=== PATIENT | male | born 1995 | race Caucasian/White ===

== ENCOUNTER 2018-07-17 00:21 | Emergency (ER) | payer BC, OTHER ==
[2018-07-17 00:33] VITALS: RESP 18
[2018-07-17] MEDS ORDERED: LIDOCAINE 1% INJ 10MG/ML (20 ML MDV) SQ STA (02:09)
[2018-07-17] MEDS ORDERED: SULFAMETH-TMP DS STARTER PACK 2 TAB BTL PO STA (02:36)
[2018-07-17] MEDS ORDERED: ACET/COD 300 MG/30 MG STARTER PACK 6 TAB BTL PO STA (02:36)
[2018-07-17] MEDS ORDERED: CEPHALEXIN 500MG STARTER PACK 4 CAP BTL PO STA (02:36)
--- NOTE | 2018-07-17 02:41 | ED ---
Skin/Abscess/FB HPI - General Chief complaint: Skin/Abscess/Foreign Body Stated complaint: Cyst on Tailbone Time Seen by Provider: 07/17/18 01:39 Source: patient, RN notes reviewed, old records reviewed Mode of arrival: ambulatory Limitations: no limitations - History of Present Illness Initial comments: Patient is a 22 year old male with cyst on tailbone for 2 days. Yvest reports he has had a pilionidal abscess before that required drainage and he followed up with surgeon. Patient states that he has no fevers or chills. - Related Data Previous Rx's Medication Instructions Recorded Cyclobenzaprine [Flexeril] 5 mg PO TID #20 tablet 12/30/13 Ibuprofen [Motrin] 600 mg PO Q6HR PRN #40 day 12/30/13 Clindamycin [Cleocin] 300 mg PO Q6H #40 capsule 01/19/14 Hydrocodone/Acetaminophen 1 each PO Q4HR PRN #20 tablet 01/19/14 [Hydrocodone/Acetaminophen 5-325] Ibuprofen [Motrin] 600 mg PO Q8HR PRN #30 tab 01/19/14 Cephalexin [Keflex] 500 mg PO Q6HR #40 cap 07/17/18 Sulfamethox-Tmp 800-160Mg [Bactrim 2 tab PO Q12HR #40 tab 07/17/18 DS 800-160 mg] Allergies Allergy/AdvReac Type Severity Reaction Status Date / Time amoxicillin [Amoxicillin] AdvReac Rash/Hives Verified 07/17/18 00:33 codeine AdvReac Hallucinati Verified 07/17/18 00:33 ons Review of Systems ROS Statement: Those systems with pertinent positive or pertinent negative responses have been documented in the HPI. ROS Other: All systems not noted in ROS Statement are negative. Constitutional: Denies: fever, chills Eyes: Denies: eye pain ENT: Denies: throat pain Respiratory: Denies: cough, dyspnea Cardiovascular: Denies: chest pain Endocrine: Denies: fatigue Gastrointestinal: Reports: vomiting. Denies: abdominal pain, nausea Musculoskeletal: Denies: back pain Skin: Reports: lesions. Denies: rash Neurological: Denies: weakness Psychiatric: Denies: anxiety, depression Hematological/Lymphatic: Denies: easy bleeding Past Medical History Past Medical History: Asthma Additional Past Medical History / Comment(s): C7 fx History of Any Multi-Drug Resistant Organisms: None Reported Past Surgical History: No Surgical Hx Reported Past Psychological History: No Psychological Hx Reported Smoking Status: Current every day smoker Past Alcohol Use History: Rare Past Drug Use History: Marijuana General Exam - General Exam Comments Initial Comments: 22 year old male, no distress. Limitations: no limitations General appearance: alert, in no apparent distress Head exam: Present: atraumatic, normocephalic, normal inspection Eye exam: Present: normal appearance, PERRL, EOMI. Absent: scleral icterus, conjunctival injection, periorbital swelling ENT exam: Present: normal exam, mucous membranes moist Neck exam: Present: normal inspection. Absent: tenderness, meningismus, lymphadenopathy Respiratory exam: Present: normal lung sounds bilaterally. Absent: respiratory distress, wheezes, rales, rhonchi, stridor Cardiovascular Exam: Present: regular rate, normal rhythm, normal heart sounds. Absent: systolic murmur, diastolic murmur, rubs, gallop, clicks GI/Abdominal exam: Present: soft, normal bowel sounds. Absent: distended, tenderness, guarding, rebound, rigid Back exam: Present: normal inspection, other (pilionidal abscess over gluteal cleft with tracking noted. Patient already has drainage from some open pores from tracks) Psychiatric exam: Present: normal affect, normal mood Skin exam: Present: warm, dry, intact, normal color. Absent: rash Course Vital Signs 07/17/18 07/17/18 00:31 02:48 Temperature 98.7 F 97.9 F Pulse Rate 93 80 Respiratory 18 18 Rate Blood Pressure 141/93 133/73 O2 Sat by Pulse 98 97 Oximetry Procedures - Incision & Drainage Site: back (gluteal cleft) Size (cm): 3 Anesthetic Used: lidocaine 1% Amount (mLs): 5 I&D Cleaning Method: Iodine Sterile Field Used?: Yes Scalpel Used: #11 I&D Drainage Obtained: Pus, Blood Packing: Iodoform Culture Obtained?: Yes Patient Tolerated Procedure: well, no complications Medical Decision Making - Medical Decision Making 22 year old male with 2 days of pilionidal abscess. Patient given bactrim and I and D performed. Culture obtained. Given referral for Surgery. Wound was packed and wound care instructions discussed. Discussed strict return parameters. Disposition Clinical Impression: Pilonidal cyst with abscess Disposition: HOME SELF-CARE Condition: Good Instructions: Pilonidal Cyst (ED) Additional Instructions: Patient advised of close follow-up with a surgeon. Remove the packing in 2 days. Return to emergency department if any alarming signs or symptoms occur. Prescriptions: Cephalexin [Keflex] 500 mg PO Q6HR #40 cap Sulfamethox-Tmp 800-160Mg [Bactrim DS 800-160 mg] 2 tab PO Q12HR #40 tab Is patient prescribed a controlled substance at d/c from ED?: No Referrals: None,Stated [Primary Care Provider] - 1-2 days Arin Wililam DO [Doctor of Osteopathic Medicine] - 1-2 days Time of Disposition: 02:38
[2018-07-17 02:49] VITALS: BP 133/73; PULSE 80; TEMP 97.9
== END 2018-07-17 02:54 | disposition home or self-care (01) ==
LOC: EC 00:21
DX: L05.01 Pilonidal cyst with abscess (principal); F17.200 Nicotine dependence, unspecified, uncomplicated; Z88.0 Allergy status to penicillin; Z88.5 Allergy status to narcotic agent
CPT/HCPCS: 87070; 87205; 99283; 10060; J2001

== ENCOUNTER 2018-11-19 00:10 | Emergency (ER) | payer BC ==
[2018-11-19 00:20] VITALS: BP 140/89; PULSE 71; RESP 17; TEMP 98
--- NOTE | 2018-11-19 00:58 | XR ---
EXAM: XR Left Hand Complete, 3 or More Views CLINICAL HISTORY: ITS.REASON XR Reason: Pain from punching door TECHNIQUE: Frontal, lateral and oblique views of the left hand. COMPARISON: No relevant prior studies available. FINDINGS: Acute boxer's fracture involving the neck of the fifth metacarpal with palmar angulation of the distal component. No involvement of the adjacent articular surface. No other acute or healing fracture or malalignment. Soft tissue swelling about the fracture site. No other soft tissue abnormalities. IMPRESSION: Acute boxer's fracture of the fifth metacarpal.
--- NOTE | 2018-11-19 02:27 | ED ---
Upper Extremity HPI - General Chief Complaint: Extremity Injury, Upper Stated Complaint: Lt Hand Injury Time Seen by Provider: 11/19/18 01:34 Source: patient Mode of arrival: ambulatory Limitations: no limitations - History of Present Illness Initial Comments: This patient is 22-year-old man who complains of hand pain that developed tonight acutely when he partially door. The patient states he felt that pop believes that he broke a bone scan. Patient denies numbness. No other injuries. Complaint: Injury to:: right, hand -: hour(s) Other Injuries: none Handedness: right Place: home Improves With: none Worsens With: movement of extremity Context: direct blow Associated Symptoms: heard/felt popping sensat - Related Data Previous Rx's Medication Instructions Recorded Cyclobenzaprine [Flexeril] 5 mg PO TID #20 tablet 12/30/13 Ibuprofen [Motrin] 600 mg PO Q6HR PRN #40 day 12/30/13 Clindamycin [Cleocin] 300 mg PO Q6H #40 capsule 01/19/14 Hydrocodone/Acetaminophen 1 each PO Q4HR PRN #20 tablet 01/19/14 [Hydrocodone/Acetaminophen 5-325] Ibuprofen [Motrin] 600 mg PO Q8HR PRN #30 tab 01/19/14 Cephalexin [Keflex] 500 mg PO Q6HR #40 cap 07/17/18 Sulfamethox-Tmp 800-160Mg [Bactrim 2 tab PO Q12HR #40 tab 07/17/18 DS 800-160 mg] Ibuprofen 800 mg PO TID #20 tablet 11/19/18 Allergies Allergy/AdvReac Type Severity Reaction Status Date / Time amoxicillin [Amoxicillin] AdvReac Rash/Hives Verified 11/19/18 00:20 codeine AdvReac Hallucinati Verified 11/19/18 00:20 ons Review of Systems ROS Statement: Those systems with pertinent positive or pertinent negative responses have been documented in the HPI. ROS Other: All systems not noted in ROS Statement are negative. Constitutional: Denies: fever, chills, weakness Musculoskeletal: Reports: as per HPI, joint swelling, arthralgia Skin: Denies: lesions Neurological: Denies: weakness, numbness, paresthesias Past Medical History Past Medical History: Asthma Additional Past Medical History / Comment(s): C7 fx, History of Any Multi-Drug Resistant Organisms: None Reported Past Surgical History: No Surgical Hx Reported Past Psychological History: No Psychological Hx Reported Smoking Status: Current every day smoker Past Alcohol Use History: Occasional Past Drug Use History: Marijuana General Exam Limitations: no limitations General appearance: alert, in no apparent distress Head exam: Present: atraumatic, normocephalic Right Elbow exam: Present: normal inspection, full ROM. Absent: tenderness, swelling, abrasion Forearm Wrist exam: Present: normal inspection, full ROM. Absent: tenderness, swelling, abrasion Hand Wrist exam: Present: tenderness, swelling, deformity, other (Patient has swelling and tenderness over the fifth metacarpal and there appears to be deformity there. No open fracture. Motor and sensory function intact to the hand) Vascular: Present: vascular compromise, normal capillary refill Course Vital Signs 11/19/18 00:17 Temperature 98.0 F Pulse Rate 71 Respiratory 17 Rate Blood Pressure 140/89 O2 Sat by Pulse 98 Oximetry Procedures - Orthopedic Splinting/Casting Injury #1 Side: right Upper Extremity Injury Location: hand Upper Extremity Immobilizer: ulnar gutter Medical Decision Making - Medical Decision Making Patient has fracture the fifth metacarpal consistent with boxer's fracture. Discussed appropriate further care and follow-up. Patient is splinted area discussed splint care and return parameters. Disposition Clinical Impression: Boxer's metacarpal fracture, neck, closed Disposition: HOME SELF-CARE Condition: Good Instructions (If sedation given, give patient instructions): Hand Fracture (ED) Prescriptions: Ibuprofen 800 mg PO TID #20 tablet Is patient prescribed a controlled substance at d/c from ED?: No Referrals: None,Stated [Primary Care Provider] - 1-2 days Bret Quintana DO [Medical Doctor] - 1-2 days
[2018-11-19] MEDS ORDERED: IBUPROFEN 600 MG TAB PO STA (02:41)
[2018-11-19] MEDS ORDERED: HYDROcodone/APAP 5-325MG 1 EACH TAB PO STA (02:41)
== END 2018-11-19 03:00 | disposition home or self-care (01) ==
LOC: EC 00:10
DX: S62.337A Displaced fracture of neck of fifth metacarpal bone, left hand, initial encounter for closed fracture (principal); F17.200 Nicotine dependence, unspecified, uncomplicated; Z87.81 Personal history of (healed) traumatic fracture; Z88.0 Allergy status to penicillin; Z88.5 Allergy status to narcotic agent; W22.8XXA Striking against or struck by other objects, initial encounter
CPT/HCPCS: 29125; 99283

== ENCOUNTER 2018-12-06 19:31 | Emergency (ER) | payer BC ==
[2018-12-06] MEDS ORDERED: PROPARACAINE 0.5% OPHTH DROPS 15 ML BTL LEFT EYE STA (20:27)
--- NOTE | 2018-12-06 21:02 | ED ---
Eye Problem HPI - General Chief complaint: Eye Problems Stated complaint: FB left eye Time Seen by Provider: 12/06/18 19:38 Source: patient Mode of arrival: ambulatory Limitations: no limitations - History of Present Illness Initial comments: Patient is a 22-year-old male presenting to emergency Department with a foreign body to left eye. Patient reports that he was shaving metal when a metal debris went into his eye. Patient states that he attempted to remove it but was unable to. Patient reports mild irritation but otherwise causes him a lot of tearing. Patient denies taking any medication to alleviate the pain. Patient denies any periorbital swelling, nausea, vomiting, headaches, blurry vision. Patient does not wear contact lenses. Patient reports histetanus status is unknown. - Related Data Previous Rx's Medication Instructions Recorded Cyclobenzaprine [Flexeril] 5 mg PO TID #20 tablet 12/30/13 Ibuprofen [Motrin] 600 mg PO Q6HR PRN #40 day 12/30/13 Clindamycin [Cleocin] 300 mg PO Q6H #40 capsule 01/19/14 Hydrocodone/Acetaminophen 1 each PO Q4HR PRN #20 tablet 01/19/14 [Hydrocodone/Acetaminophen 5-325] Ibuprofen [Motrin] 600 mg PO Q8HR PRN #30 tab 01/19/14 Cephalexin [Keflex] 500 mg PO Q6HR #40 cap 07/17/18 Sulfamethox-Tmp 800-160Mg [Bactrim 2 tab PO Q12HR #40 tab 07/17/18 DS 800-160 mg] Ibuprofen 800 mg PO TID #20 tablet 11/19/18 Tobramycin 0.3% Ophth Soln [Tobrex 1 drop BOTH EYES Q4H 7 Days #1 12/06/18 0.3% Ophth Soln] bottle Allergies Allergy/AdvReac Type Severity Reaction Status Date / Time amoxicillin [Amoxicillin] AdvReac Rash/Hives Verified 12/06/18 19:37 codeine AdvReac Hallucinati Verified 12/06/18 19:37 ons Review of Systems ROS Statement: Those systems with pertinent positive or pertinent negative responses have been documented in the HPI. ROS Other: All systems not noted in ROS Statement are negative. Past Medical History Past Medical History: Asthma Additional Past Medical History / Comment(s): C7 fx, History of Any Multi-Drug Resistant Organisms: None Reported Past Surgical History: No Surgical Hx Reported Past Psychological History: No Psychological Hx Reported Smoking Status: Current every day smoker Past Alcohol Use History: Occasional Past Drug Use History: Marijuana General Exam Limitations: no limitations General appearance: alert, in no apparent distress Head exam: Present: atraumatic, normocephalic, normal inspection Eye exam: Present: normal appearance, other (Foreign body, left iris) Neck exam: Present: normal inspection Course Vital Signs 12/06/18 19:35 Temperature 98.2 F Pulse Rate 74 Respiratory 18 Rate Blood Pressure 152/93 O2 Sat by Pulse 98 Oximetry Medical Decision Making - Medical Decision Making Patient is a 22-year-old male presenting to emergency Department with a foreign body to left eye. I used procainamide as a local anesthetic and removed the eye with a cotton swab. Patient will be given tetanus prophylaxis. Patient will be discharged with tobramycin eyedrops. Patient advised to follow-up with primary care. Patient advised to return to emergency Department symptoms worsen. Case discussed with physician. Disposition Clinical Impression: Foreign body Disposition: HOME SELF-CARE Instructions (If sedation given, give patient instructions): Eye Foreign Body (ED) Additional Instructions: Please use prescribed medication as directed. Please follow up with an ophtha lmologist. Please return to emergency department if symptoms worsen. Prescriptions: Tobramycin 0.3% Ophth Soln [Tobrex 0.3% Ophth Soln] 1 drop BOTH EYES Q4H 7 Days #1 bottle Is patient prescribed a controlled substance at d/c from ED?: No Referrals: None,Stated [Primary Care Provider] - 1-2 days Time of Disposition: 21:07
[2018-12-06] MEDS ORDERED: DIPH,PERTUS(ACELL)TETVAC-LF 0.5 ML VIAL IM ONE (21:06)
[2018-12-06 21:44] VITALS: BP 140/78; PULSE 72; RESP 21; TEMP 98.6
== END 2018-12-06 21:31 | disposition home or self-care (01) ==
LOC: EC 19:31
DX: T15.82XA Foreign body in other and multiple parts of external eye, left eye, initial encounter (principal); F17.200 Nicotine dependence, unspecified, uncomplicated; Z88.0 Allergy status to penicillin; Z88.5 Allergy status to narcotic agent; Z23 Encounter for immunization; Y93.89 Activity, other specified
CPT/HCPCS: 90471; 90715; 99283

== ENCOUNTER 2019-07-06 17:04 | Emergency (ER) | payer BC ==
[2019-07-06 17:09] VITALS: BP 149/87; PULSE 91; RESP 18; TEMP 98
--- NOTE | 2019-07-06 17:29 | ED ---
General Adult HPI - General Chief complaint: Extremity Problem,Nontraumatic Stated complaint: left hand numbnes Time Seen by Provider: 07/06/19 17:12 Source: patient, RN notes reviewed Mode of arrival: ambulatory Limitations: no limitations - History of Present Illness Initial comments: 23-year-old male presents to the emergency department for a chief complaint of numbness and tingling in the first second and third digits of the right hand. Patient states that he has a tingling sensation that has been persistent for about a week. States he had pain in his wrist about a week ago but that has subsided. However since then he has had tingling in his thumb and second and third digits. Denies any weakness of this hand. 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 Denies any alleviating or aggravating symptoms. Has not tried any anti-inflammatories at this point. Denies any recent injury to the wrist or hand. Patient has no other complaints at this time including shortness of breath, chest pain, abdominal pain, nausea or vomiting, headache, or visual changes. - Related Data Previous Rx's Medication Instructions Recorded Cyclobenzaprine [Flexeril] 5 mg PO TID #20 tablet 12/30/13 Ibuprofen [Motrin] 600 mg PO Q6HR PRN #40 day 12/30/13 Clindamycin [Cleocin] 300 mg PO Q6H #40 capsule 01/19/14 Hydrocodone/Acetaminophen 1 each PO Q4HR PRN #20 tablet 01/19/14 [Hydrocodone/Acetaminophen 5-325] Ibuprofen [Motrin] 600 mg PO Q8HR PRN #30 tab 01/19/14 Cephalexin [Keflex] 500 mg PO Q6HR #40 cap 07/17/18 Sulfamethox-Tmp 800-160Mg [Bactrim 2 tab PO Q12HR #40 tab 07/17/18 DS 800-160 mg] Ibuprofen 800 mg PO TID #20 tablet 11/19/18 Tobramycin 0.3% Ophth Soln [Tobrex 1 drop BOTH EYES Q4H 7 Days #1 12/06/18 0.3% Ophth Soln] bottle Allergies Allergy/AdvReac Type Severity Reaction Status Date / Time amoxicillin [Amoxicillin] AdvReac Rash/Hives Verified 07/06/19 17:09 codeine AdvReac Hallucinati Verified 07/06/19 17:09 ons Review of Systems ROS Statement: Those systems with pertinent positive or pertinent negative responses have been documented in the HPI. ROS Other: All systems not noted in ROS Statement are negative. Past Medical History Past Medical History: Asthma Additional Past Medical History / Comment(s): C7 fx in 2013 History of Any Multi-Drug Resistant Organisms: None Reported Past Surgical History: No Surgical Hx Reported Past Psychological History: No Psychological Hx Reported Smoking Status: Current every day smoker Past Alcohol Use History: None Reported Past Drug Use History: Marijuana General Exam Limitations: no limitations General appearance: alert, in no apparent distress Head exam: Present: atraumatic, normocephalic, normal inspection Eye exam: Present: normal appearance, PERRL, EOMI. Absent: scleral icterus, conjunctival injection, periorbital swelling ENT exam: Present: normal exam, mucous membranes moist Neck exam: Present: normal inspection. Absent: tenderness, meningismus, lymphadenopathy Respiratory exam: Present: normal lung sounds bilaterally. Absent: respiratory distress, wheezes, rales, rhonchi, stridor Cardiovascular Exam: Present: regular rate, normal rhythm, normal heart sounds. Absent: systolic murmur, diastolic murmur, rubs, gallop, clicks Extremities exam: Present: normal inspection, full ROM (Of the right wrist and all digits of the right hand.), normal capillary refill (Radial pulse 2+ in the right upper extremity. Capillary refill less than 2 seconds in all digits of the right upper extremity.), other (The patient is intact throughout the right hand including all digits. Patient has full strength of the median nerve when making okay sign). Absent: tenderness, pedal edema, joint swelling, calf tende rness Course Vital Signs 07/06/19 17:05 Temperature 98 F Pulse Rate 91 Respiratory 18 Rate Blood Pressure 149/87 O2 Sat by Pulse 100 Oximetry Medical Decision Making - Medical Decision Making Pt is experiencing paresthesia in the median nerve distribution. However sensation is intact and strength is 5 out of 5 of the median nerve. 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 he'll be treated for carpal tunnel syndrome with anti-inflammatories and cock-up splint. Appropriate follow up given as well as return parameters discussed. Disposition Clinical Impression: Paresthesias in left hand Disposition: HOME SELF-CARE Condition: Good Instructions (If sedation given, give patient instructions): Paresthesia (ED) Additional Instructions: Take Motrin and Tylenol for anti-inflammatory properties. Make sure to eat while taking this to prevent stomach discomfort. Please use cockup splint as directed. Return to the emergency department if you have any worsening symptoms. Is patient prescribed a controlled substance at d/c from ED?: No Referrals: Fei Berger MD [STAFF PHYSICIAN] - 1-2 days Time of Disposition: 17:28
== END 2019-07-06 17:42 | disposition home or self-care (01) ==
LOC: EC 17:04
DX: R20.2 Paresthesia of skin (principal); F17.200 Nicotine dependence, unspecified, uncomplicated; Z88.0 Allergy status to penicillin; Z88.5 Allergy status to narcotic agent
CPT/HCPCS: 99283

== ENCOUNTER 2020-03-03 00:08 | Emergency (ER) | payer BC ==
[2020-03-03 01:21] LABS: Amphetamine Screen,Urine Detected (NotDetected); Barbiturate Screen,Urine Not Detected (NotDetected); Benzodiazepines Screen,Urine Not Detected (NotDetected); Cocaine Screen,Urine Not Detected (NotDetected); Methadone Screen, Urine Not Detected (NotDetected); Opiate Screen,Urine Not Detected (NotDetected); Oxycodone Screen, Urine Not Detected (NotDetected); Phencyclidine Screen,Urine Not Detected (NotDetected); Tricyclic Antidepressant,Urine Not Detected (NotDetected); Urn Cannabinoid Scrn Not Detected (NotDetected)
[2020-03-03 03:34] LABS: Basophils # (A) 0.1 k/uL (0-0.2); Basophils % (A) 1 %; Eosinophils # (A) 0.3 k/uL (0-0.7); Eosinophils % (A) 4 %; HCT 42.4 % (39.0-53.0); HGB 14.2 gm/dL (13.0-17.5); Lymphocytes # (A) 2.9 k/uL (1.0-4.8); Lymphocytes % (A) 36 %; MCH 29.3 pg (25.0-35.0); MCHC 33.6 g/dL (31.0-37.0); MCV 87.2 fL (80.0-100.0); Mean Platelet Volume 7.3; Monocytes # (A) 0.3 k/uL (0-1.0); Monocytes % (A) 4 %; Neutrophils # (A) 4.2 k/uL (1.3-7.7); Neutrophils % (A) 53 %; Platelet Count 180 k/uL (150-450); RBC 4.86 m/uL (4.30-5.90); RDW 12.6 % (11.5-15.5)
[2020-03-03 03:52] LABS: African American GFR (CKD) >90 (>60 ml/min/1.73 sqM); Anion Gap 7 mmol/L; Blood Urea Nitrogen 13 mg/dL (9-20); Calcium 9.7 mg/dL (8.4-10.2); Carbon Dioxide 25 mmol/L (22-30); Chloride 107 mmol/L (98-107); Glucose 100 mg/dL (74-99); Non-African American GFR(CKD) >90 (>60 ml/min/1.73 sqM); Potassium 3.9 mmol/L (3.5-5.1); Sodium 139 mmol/L (137-145)
--- NOTE | 2020-03-03 04:14 | ED ---
Psych HPI - General Chief Complaint: Psychiatric Symptoms Stated Complaint: mental health Time Seen by Provider: 03/03/20 00:13 Source: patient Mode of arrival: ambulatory - History of Present Illness MD Complaint: suicidal ideation, feels depressed -: days(s) Associated Psychiatric Symptoms: suicidal ideation History of same: Yes Quality: getting worse Improves With: none Worsens With: drug use Context: significant life stressor Associated Symptoms: denies other symptoms - Related Data Previous Rx's Medication Instructions Recorded Cyclobenzaprine [Flexeril] 5 mg PO TID #20 tablet 12/30/13 Ibuprofen [Motrin] 600 mg PO Q6HR PRN #40 day 12/30/13 Clindamycin [Cleocin] 300 mg PO Q6H #40 capsule 01/19/14 Hydrocodone/Acetaminophen 1 each PO Q4HR PRN #20 tablet 01/19/14 [Hydrocodone/Acetaminophen 5-325] Ibuprofen [Motrin] 600 mg PO Q8HR PRN #30 tab 01/19/14 Cephalexin [Keflex] 500 mg PO Q6HR #40 cap 07/17/18 Sulfamethox-Tmp 800-160Mg [Bactrim 2 tab PO Q12HR #40 tab 07/17/18 DS 800-160 mg] Ibuprofen 800 mg PO TID #20 tablet 11/19/18 Tobramycin 0.3% Ophth Soln [Tobrex 1 drop BOTH EYES Q4H 7 Days #1 12/06/18 0.3% Ophth Soln] bottle Allergies Allergy/AdvReac Type Severity Reaction Status Date / Time amoxicillin [Amoxicillin] AdvReac Rash/Hives Verified 03/03/20 00:14 codeine AdvReac Hallucinati Verified 03/03/20 00:14 ons Review of Systems ROS Statement: Those systems with pertinent positive or pertinent negative responses have been documented in the HPI. ROS Other: All systems not noted in ROS Statement are negative. Constitutional: Denies: fever, chills Respiratory: Denies: cough, dyspnea Cardiovascular: Denies: chest pain, palpitations Gastrointestinal: Denies: abdominal pain, vomiting, diarrhea Genitourinary: Denies: dysuria, hematuria Musculoskeletal: Denies: back pain Neurological: Denies: headache, weakness, numbness Psychiatric: Reports: depression, suicidal thoughts. Denies: auditory hallucinations, visual hallucinations, homicidal thoughts Past Medical History Past Medical History: Asthma Additional Past Medical History / Comment(s): C7 fx in 2014 History of Any Multi-Drug Resistant Organisms: None Reported Past Surgical History: No Surgical Hx Reported Past Psychological History: No Psychological Hx Reported Smoking Status: Current every day smoker Past Alcohol Use History: None Reported Past Drug Use History: Marijuana, Methamphetamine General Exam Limitations: no limitations General appearance: alert, in no apparent distress Head exam: Present: atraumatic, normocephalic Eye exam: Present: normal appearance. Absent: scleral icterus, conjunctival injection ENT exam: Present: normal oropharynx Respiratory exam: Present: normal lung sounds bilaterally. Absent: respiratory distress, wheezes, rales, rhonchi, stridor Cardiovascular Exam: Present: regular rate, normal rhythm, normal heart sounds. Absent: systolic murmur, diastolic murmur, rubs, gallop GI/Abdominal exam: Present: soft. Absent: distended, tenderness, guarding, rebound, rigid, mass Extremities exam: Present: normal inspection, normal capillary refill Back exam: Present: normal inspection Neurological exam: Present: alert Psychiatric exam: Present: depressed, suicidal ideation. Absent: agitated, anxious, flat affect, manic, homicidal ideation Skin exam: Present: warm, dry, intact, normal color. Absent: rash Course Vital Signs 03/03/20 03/03/20 00:12 06:56 Temperature 98.1 F 98.0 F Pulse Rate 100 72 Respiratory 18 17 Rate Blood Pressure 132/86 136/83 O2 Sat by Pulse 100 100 Oximetry Medical Decision Making - Lab Data Result diagrams: 03/03/20 03:09 03/03/20 03:09 Lab Results 03/03/20 03/03/20 03/03/20 Range/Units 00:46 03:09 03:09 WBC 8.0 (3.8-10.6) k/uL RBC 4.86 (4.30-5.90) m/uL Hgb 14.2 (13.0-17.5) gm/dL Hct 42.4 (39.0-53.0) % MCV 87.2 (80.0-100.0) fL MCH 29.3 (25.0-35.0) pg MCHC 33.6 (31.0-37.0) g/dL RDW 12.6 (11.5-15.5) % Plt Count 180 (150-450) k/uL Neutrophils % 53 % Lymphocytes % 36 % Monocytes % 4 % Eosinophils % 4 % Basophils % 1 % Neutrophils # 4.2 (1.3-7.7) k/uL Lymphocytes # 2.9 (1.0-4.8) k/uL Monocytes # 0.3 (0-1.0) k/uL Eosinophils # 0.3 (0-0.7) k/uL Basophils # 0.1 (0-0.2) k/uL Sodium 139 (137-145) mmol/L Potassium 3.9 (3.5-5.1) mmol/L Chloride 107 (98-107) mmol/L Carbon Dioxide 25 (22-30) mmol/L Anion Gap 7 mmol/L BUN 13 (9-20) mg/dL Creatinine 0.77 (0.66-1.25) mg/dL Est GFR (CKD-EPI)AfAm >90 (>60 ml/min/1.73 sqM) Est GFR (CKD-EPI)NonAf >90 (>60 ml/min/1.73 sqM) Glucose 100 H (74-99) mg/dL Calcium 9.7 (8.4-10.2) mg/dL Urine Opiates Screen Not Detected (NotDetected) Ur Oxycodone Screen Not Detected (NotDetected) Urine Methadone Screen Not Detected (NotDetected) Ur Propoxyphene Screen Not Detected (NotDetected) Ur Barbiturates Screen Not Detected (NotDetected) U Tricyclic Antidepress Not Detected (NotDetected) Ur Phencyclidine Scrn Not Detected (NotDetected) Ur Amphetamines Screen Detected H (NotDetected) U Methamphetamines Scrn Not Detected (NotDetected) U Benzodiazepines Scrn Not Detected (NotDetected) Urine Cocaine Screen Not Detected (NotDetected) U Marijuana (THC) Screen Not Detected (NotDetected) Disposition Clinical Impression: Suicidal ideation, Mood disorder Disposition: TRANSFER TO PSYCH HOSP/UNIT Condition: Fair Is patient prescribed a controlled substance at d/c from ED?: No Referrals: None,Stated [Primary Care Provider] - 1-2 days
[2020-03-03 08:10] VITALS: BP 136/83; PULSE 72; RESP 17; TEMP 98
== END 2020-03-03 07:35 ==
LOC: EC 00:08
DX: R45.851 Suicidal ideations (principal); F39 Unspecified mood [affective] disorder; F17.200 Nicotine dependence, unspecified, uncomplicated; Z88.0 Allergy status to penicillin; Z88.5 Allergy status to narcotic agent
CPT/HCPCS: 36415; 80048; 80306; 82075; 85025; 99285

== ENCOUNTER 2020-06-26 05:32 | Emergency (ER) | payer BC ==
[2020-06-26 05:45] VITALS: BP 136/89; PULSE 100; RESP 18; TEMP 98
[2020-06-26] MEDS ORDERED: PROPARACAINE 0.5% OPHTH DROPS 15 ML BTL RIGHT EYE STA (05:53)
[2020-06-26] MEDS ORDERED: TOBRAMYCIN 0.3% OPHTH DROPS 5 ML BTL BOTH EYES STA (06:31)
[2020-06-26] MEDS ORDERED: FLUORESCEIN STRIPS 1 MG STRIP BOTH EYES ONE (06:32)
--- NOTE | 2020-06-26 06:33 | ED ---
Eye Problem HPI - General Chief complaint: Eye Problems Stated complaint: FB in eye Time Seen by Provider: 06/26/20 06:02 Source: patient, RN notes reviewed Mode of arrival: ambulatory Limitations: no limitations - History of Present Illness Initial comments: 24-year-old male presents emergency Department with chief complaint of a foreign body to his right and left eye. Patient states that he was clearing away some metal shavings yesterday states that blew into his eyes. Patient states his tetanus is up-to-date last 5 years. Patient states that he can see something in his right eye but feels like symptoms in his left eye Patient offers no other complaints. - Related Data Previous Rx's Medication Instructions Recorded Cyclobenzaprine [Flexeril] 5 mg PO TID #20 tablet 12/30/13 Ibuprofen [Motrin] 600 mg PO Q6HR PRN #40 day 12/30/13 Clindamycin [Cleocin] 300 mg PO Q6H #40 capsule 01/19/14 Hydrocodone/Acetaminophen 1 each PO Q4HR PRN #20 tablet 01/19/14 [Hydrocodone/Acetaminophen 5-325] Ibuprofen [Motrin] 600 mg PO Q8HR PRN #30 tab 01/19/14 Cephalexin [Keflex] 500 mg PO Q6HR #40 cap 07/17/18 Sulfamethox-Tmp 800-160Mg [Bactrim 2 tab PO Q12HR #40 tab 07/17/18 DS 800-160 mg] Ibuprofen 800 mg PO TID #20 tablet 11/19/18 Tobramycin 0.3% Ophth Soln [Tobrex 1 drop BOTH EYES Q4H 7 Days #1 12/06/18 0.3% Ophth Soln] bottle Allergies Allergy/AdvReac Type Severity Reaction Status Date / Time amoxicillin [Amoxicillin] AdvReac Rash/Hives Verified 06/26/20 05:45 codeine AdvReac Hallucinati Verified 06/26/20 05:45 ons Review of Systems ROS Statement: Those systems with pertinent positive or pertinent negative responses have been documented in the HPI. ROS Other: All systems not noted in ROS Statement are negative. Past Medical History Past Medical History: Asthma Additional Past Medical History / Comment(s): C7 fx in 2014 History of Any Multi-Drug Resistant Organisms: None Reported Past Surgical History: No Surgical Hx Reported Past Psychological History: No Psychological Hx Reported Smoking Status: Current every day smoker Past Alcohol Use History: None Reported Past Drug Use History: Marijuana, Methamphetamine General Exam Limitations: no limitations General appearance: alert, in no apparent distress Head exam: Present: atraumatic, normocephalic, normal inspection Eye exam: Present: PERRL, EOMI, other (Wood's lamp was used along with fluorescein and proparacaine patient completely relief of symptoms for her cane .). Absent: normal appearance (Foreign body noted in the right central cornea region with rest sprain, left eye foreign body in 11 o'clock position), scleral icterus, conjunctival injection, periorbital swelling ENT exam: Present: normal exam, normal oropharynx, mucous membranes moist Neck exam: Present: normal inspection. Absent: tenderness, meningismus, lymphadenopathy Respiratory exam: Present: normal lung sounds bilaterally. Absent: respiratory distress, wheezes, rales, rhonchi, stridor Cardiovascular Exam: Present: regular rate, normal rhythm, normal heart sounds. Absent: systolic murmur, diastolic murmur, rubs, gallop, clicks Course Vital Signs 06/26/20 05:39 Temperature 98 F Pulse Rate 100 Respiratory 18 Rate Blood Pressure 136/89 O2 Sat by Pulse 98 Oximetry Procedures - Forgein Body Removal Eye Site: Left, Right Anesthetic Used: Proparacaine Eye Exam Technique: Mccoy Lamp, Fluorescein Foreign Body Suspected: Metal Forgein Body Removal Technique: Cotton Swab, Algerbrush Remaining Debris: No Patient Tolerated: no complications Medical Decision Making - Medical Decision Making Patient had bilateral foreign bodies with rust ring. This was removed with medications. Patient was instructed that he needs to follow-up for recheck and to return for any worsening or changing symptoms. Patient agrees patient discharged on Tobrex eyedrops. Tetanus up-to-date. Disposition Clinical Impression: Foreign body of cornea Disposition: HOME SELF-CARE Condition: Stable Instructions (If sedation given, give patient instructions): Eye Foreign Body (ED) Additional Instructions: Use Tobrex eyedrops 1 drop to each eye every 4 hours for 5 days. Patient's follow-up with ophthalmology if no improvement. Please return to the Emergency Department if symptoms worsen or any other concerns. Is patient prescribed a controlled substance at d/c from ED?: No Referrals: None,Stated [Primary Care Provider] - 1-2 days Chris Rogers MD [STAFF PHYSICIAN] - 1-2 days Time of Disposition: 06:33
== END 2020-06-26 07:19 | disposition home or self-care (01) ==
LOC: EC 05:32
DX: T15.02XA Foreign body in cornea, left eye, initial encounter (principal); T15.01XA Foreign body in cornea, right eye, initial encounter; F17.200 Nicotine dependence, unspecified, uncomplicated; Z88.0 Allergy status to penicillin; Z88.5 Allergy status to narcotic agent; W45.8XXA Other foreign body or object entering through skin, initial encounter
CPT/HCPCS: 65220; 99283

== ENCOUNTER 2020-07-13 17:34 | Emergency (ER) | payer BC ==
[2020-07-13 17:38] VITALS: BP 117/80; PULSE 111; RESP 18; TEMP 97.8
[2020-07-13] MEDS ORDERED: PROPARACAINE 0.5% OPHTH DROPS 15 ML BTL LEFT EYE STA (17:39)
[2020-07-13] MEDS ORDERED: FLUORESCEIN STRIPS 1 MG STRIP LEFT EYE ONE (17:39)
[2020-07-13] MEDS ORDERED: TOBRAMYCIN 0.3% OPHTH DROPS 5 ML BTL LEFT EYE STA (18:00)
--- NOTE | 2020-07-13 18:02 | ED ---
Eye Problem HPI - General Chief complaint: Eye Problems Stated complaint: eye problem Time Seen by Provider: 07/13/20 17:39 Source: patient, RN notes reviewed Mode of arrival: ambulatory Limitations: no limitations - History of Present Illness Initial comments: 24-year-old male presents emergency Department with chief complaint of foreign body left eye. 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 Patient states he started having some irritation today. Tetanus up-to-date. Patient has no blurred vision states is just irritated. Patient offers no other complaints. - Related Data Previous Rx's Medication Instructions Recorded Cyclobenzaprine [Flexeril] 5 mg PO TID #20 tablet 12/30/13 Ibuprofen [Motrin] 600 mg PO Q6HR PRN #40 day 12/30/13 Clindamycin [Cleocin] 300 mg PO Q6H #40 capsule 01/19/14 Hydrocodone/Acetaminophen 1 each PO Q4HR PRN #20 tablet 01/19/14 [Hydrocodone/Acetaminophen 5-325] Ibuprofen [Motrin] 600 mg PO Q8HR PRN #30 tab 01/19/14 Cephalexin [Keflex] 500 mg PO Q6HR #40 cap 07/17/18 Sulfamethox-Tmp 800-160Mg [Bactrim 2 tab PO Q12HR #40 tab 07/17/18 DS 800-160 mg] Ibuprofen 800 mg PO TID #20 tablet 11/19/18 Tobramycin 0.3% Ophth Soln [Tobrex 1 drop BOTH EYES Q4H 7 Days #1 12/06/18 0.3% Ophth Soln] bottle Allergies Allergy/AdvReac Type Severity Reaction Status Date / Time amoxicillin [Amoxicillin] AdvReac Rash/Hives Verified 07/13/20 17:38 codeine AdvReac Hallucinati Verified 07/13/20 17:38 ons Review of Systems ROS Statement: Those systems with pertinent positive or pertinent negative responses have been documented in the HPI. ROS Other: All systems not noted in ROS Statement are negative. Past Medical History Past Medical History: Asthma Additional Past Medical History / Comment(s): C7 fx in 2013 History of Any Multi-Drug Resistant Organisms: None Reported Past Surgical History: No Surgical Hx Reported Past Psychological History: No Psychological Hx Reported Smoking Status: Current every day smoker Past Alcohol Use History: None Reported Past Drug Use History: Marijuana, Methamphetamine General Exam Limitations: no limitations General appearance: alert, in no apparent distress Head exam: Present: atraumatic, normocephalic, normal inspection Eye exam: Present: PERRL, EOMI, conjunctival injection. Absent: normal appearance (Foreign body noted left I in the 11 o'clock position), scleral icterus, periorbital swelling ENT exam: Present: normal exam, mucous membranes moist Neck exam: Present: normal inspection. Absent: tenderness, meningismus, lymphadenopathy Respiratory exam: Present: normal lung sounds bilaterally. Absent: respiratory distress, wheezes, rales, rhonchi, stridor Cardiovascular Exam: Present: regular rate, normal rhythm, normal heart sounds. Absent: systolic murmur, diastolic murmur, rubs, gallop, clicks Course Vital Signs 07/13/20 17:36 Temperature 97.8 F Pulse Rate 111 H Respiratory 18 Rate Blood Pressure 117/80 O2 Sat by Pulse 99 Oximetry Procedures - Forgein Body Removal Eye Site: Left Anesthetic Used: Proparacaine Eye Exam Technique: Mccoy Lamp, Fluorescein Foreign Body Suspected: Metal Forgein Body Removal Technique: Cotton Swab, Algerbrush Remaining Debris: No Patient Tolerated: no complications Medical Decision Making - Medical Decision Making Foreign body was removed medications. Patient was discharged on Tobrex eyedrops patient tetanus is up-to-date patient will follow with ophthalmology for recheck and return for any worsening symptoms. Disposition Clinical Impression: Foreign body of cornea Disposition: HOME SELF-CARE Condition: Stable Instructions (If sedation given, give patient instructions): Eye Foreign Body (ED) Additional Instructions: Please return to the Emergency Department if symptoms worsen or any other concerns. Use Tobrex eyedrops 1 drop every 4 hours for 5 days. Is patient prescribed a controlled substance at d/c from ED?: No Referrals: None,Stated [Primary Care Provider] - 1-2 days Dede Perez MD [STAFF PHYSICIAN] - 1-2 days Time of Disposition: 18:02
== END 2020-07-13 18:13 | disposition home or self-care (01) ==
LOC: EC 17:34
DX: T15.02XA Foreign body in cornea, left eye, initial encounter (principal); F17.200 Nicotine dependence, unspecified, uncomplicated; Z88.0 Allergy status to penicillin; Z88.5 Allergy status to narcotic agent; X58.XXXA Exposure to other specified factors, initial encounter
CPT/HCPCS: 65220; 99283

== ENCOUNTER 2020-10-26 00:45 | Inpatient (IN) | payer BC ==
--- NOTE | 2020-10-26 01:18 | ED ---
Psych HPI - General Chief Complaint: Psychiatric Symptoms Stated Complaint: Mental health Time Seen by Provider: 10/26/20 00:54 Source: patient, family, RN notes reviewed, old records reviewed Mode of arrival: ambulatory Limitations: no limitations - History of Present Illness Initial Comments: This is a 24-year-old male to the ER for evaluation. Patient with us for evaluation of possible mental a shunt does have history of drug abuse recent drug abuse and has active thoughts of suicidal ideation currently MD Complaint: feels depressed, altered mental status, other (drug abuse) -: days(s) Associated Psychiatric Symptoms: homicidal ideation, racing thoughts, auditory hallucinations, visual hallucinations History of same: Yes Quality: constant Improves With: none Worsens With: none Context: recent drug abuse, not taking psychiatric medications Associated Symptoms: denies other symptoms Treatments Prior to Arrival: placed on mental health hold - Related Data Previous Rx's Medication Instructions Recorded FLUoxetine HCL [PROzac] 30 mg PO DAILY 30 Days cap 10/29/20 Nicotine 14Mg/24Hr Patch [Habitrol] 1 patch TRANSDERM DAILY 30 Days 10/29/20 patch risperiDONE [RisperDAL] 2 mg PO HS 30 Days tab 10/29/20 Allergies Allergy/AdvReac Type Severity Reaction Status Date / Time codeine Allergy Hallucinati Verified 10/26/20 06:59 ons amoxicillin [Amoxicillin] AdvReac Rash/Hives Verified 10/26/20 06:59 Review of Systems ROS Statement: Those systems with pertinent positive or pertinent negative responses have been documented in the HPI. ROS Other: All systems not noted in ROS Statement are negative. Past Medical History Past Medical History: Asthma Additional Past Medical History / Comment(s): C7 fx in 2014 History of Any Multi-Drug Resistant Organisms: None Reported Past Surgical History: No Surgical Hx Reported Past Psychological History: No Psychological Hx Reported Smoking Status: Current every day smoker Past Alcohol Use History: None Reported Past Drug Use History: Marijuana, Methamphetamine General Exam Limitations: no limitations General appearance: alert, in no apparent distress Head exam: Present: atraumatic, normocephalic, normal inspection Eye exam: Present: normal appearance, PERRL, EOMI. Absent: scleral icterus, conjunctival injection, periorbital swelling ENT exam: Present: normal exam, mucous membranes moist Neck exam: Present: normal inspection. Absent: tenderness, meningismus, lymphadenopathy Respiratory exam: Present: normal lung sounds bilaterally. Absent: respiratory distress, wheezes, rales, rhonchi, stridor Cardiovascular Exam: Present: regular rate, normal rhythm, normal heart sounds. Absent: systolic murmur, diastolic murmur, rubs, gallop, clicks GI/Abdominal exam: Present: soft, normal bowel sounds. Absent: distended, tenderness, guarding, rebound, rigid Extremities exam: Present: normal inspection, full ROM, normal capillary refill. Absent: tenderness, pedal edema, joint swelling, calf tenderness Back exam: Present: normal inspection Neurological exam: Present: alert, oriented X3, CN II-XII intact Psychiatric exam: Present: normal affect, normal mood Skin exam: Present: warm, dry, intact, normal color. Absent: rash Course Vital Signs 10/26/20 00:50 Temperature 97.8 F Pulse Rate 64 Respiratory 18 Rate Blood Pressure 131/84 O2 Sat by Pulse 98 Oximetry - Reevaluation(s) Reevaluation #1: 10/26/20 07:12 medical record is reviewed Reevaluation #2: 10/26/20 07:13 medically clear for psychiatry Medical Decision Making - Medical Decision Making 24 male admitted for psychiatric evaluation and treatment - Lab Data Result diagrams: 10/26/20 08:53 10/26/20 08:53 Lab Results 10/26/20 10/26/20 Range/Units 02:20 04:05 Urine Opiates Screen Not Detected (NotDetected) Ur Oxycodone Screen Not Detected (NotDetected) Urine Methadone Screen Not Detected (NotDetected) Ur Propoxyphene Screen Not Detected (NotDetected) Ur Barbiturates Screen Not Detected (NotDetected) U Tricyclic Antidepress Not Detected (NotDetected) Ur Phencyclidine Scrn Not Detected (NotDetected) Ur Amphetamines Screen Detected H (NotDetected) U Methamphetamines Scrn Detected H (NotDetected) U Benzodiazepines Scrn Detected H (NotDetected) Urine Cocaine Screen Not Detected (NotDetected) U Marijuana (THC) Screen Detected H (NotDetected) Coronavirus (PCR) Not Detected (Not Detectd) Disposition Clinical Impression: Methamphetamine abuse, Major depressive disorder, Suicidal ideation, Depression Disposition: TRANSFER TO PSYCH HOSP/UNIT Condition: Fair Is patient prescribed a controlled substance at d/c from ED?: No
[2020-10-26 03:22] LABS: Amphetamine Screen,Urine Detected (NotDetected); Barbiturate Screen,Urine Not Detected (NotDetected); Benzodiazepines Screen,Urine Detected (NotDetected); Cocaine Screen,Urine Not Detected (NotDetected); Methadone Screen, Urine Not Detected (NotDetected); Opiate Screen,Urine Not Detected (NotDetected); Oxycodone Screen, Urine Not Detected (NotDetected); Phencyclidine Screen,Urine Not Detected (NotDetected); Tricyclic Antidepressant,Urine Not Detected (NotDetected); Urn Cannabinoid Scrn Detected (NotDetected)
[2020-10-26] MEDS ORDERED: LORazepam 1 MG TAB PO PRN (06:30)
[2020-10-26] MEDS ORDERED: ACETAMINOPHEN TAB 325 MG TAB PO PRN (06:30)
[2020-10-26] MEDS ORDERED: MAG HYDROX/AL HYDROX/SIMETH 30 ML CUP PO PRN (06:30)
[2020-10-26] MEDS ORDERED: MAGNESIUM HYDROXIDE 2,400 MG/10 ML CUP PO PRN (06:30)
[2020-10-26] MEDS ORDERED: LORazepam 2 MG/ML INJ IM PRN (06:33)
[2020-10-26] MEDS ORDERED: haloperidoL 5 MG TAB PO PRN (06:34)
[2020-10-26] MEDS ORDERED: HALOPERIDOL LACTATE 5 MG/ML 1 ML VIAL IM PRN (06:34)
[2020-10-26] MEDS ORDERED: NICOTINE 14MG/24HR PATCH TRANSDERM SCH (09:00)
[2020-10-26 09:16] LABS: Basophils # (A) 0.1 k/uL (0-0.2); Basophils % (A) 1 %; Eosinophils # (A) 0.2 k/uL (0-0.7); Eosinophils % (A) 2 %; HCT 53.9 % (39.0-53.0); Lymphocytes # (A) 2.2 k/uL (1.0-4.8); Lymphocytes % (A) 30 %; MCH 29.4 pg (25.0-35.0); MCHC 33.3 g/dL (31.0-37.0); MCV 88.2 fL (80.0-100.0); Mean Platelet Volume 6.9; Monocytes # (A) 0.4 k/uL (0-1.0); Monocytes % (A) 6 %; Neutrophils # (A) 4.5 k/uL (1.3-7.7); Neutrophils % (A) 60 %; Platelet Count 189 k/uL (150-450); RBC 6.11 m/uL (4.30-5.90); RDW 13.5 % (11.5-15.5); WBC 7.6 k/uL (3.8-10.6)
[2020-10-26 09:24] LABS: ALT 63 U/L (4-49); AST 36 U/L (17-59); African American GFR (CKD) >90 (>60 ml/min/1.73 sqM); Albumin 4.9 g/dL (3.5-5.0); Alkaline Phosphatase 77 U/L (38-126); Anion Gap 9 mmol/L; Blood Urea Nitrogen 16 mg/dL (9-20); Calcium 10.4 mg/dL (8.4-10.2); Carbon Dioxide 28 mmol/L (22-30); Chloride 102 mmol/L (98-107); Cholesterol 213 mg/dL (<200); Glucose 95 mg/dL (74-99); HDL Cholesterol 50 mg/dL (40-60); LDL Cholesterol,Calculated 141 mg/dL (0-99); Non-African American GFR(CKD) >90 (>60 ml/min/1.73 sqM); Potassium 4.7 mmol/L (3.5-5.1); Sodium 139 mmol/L (137-145); Total Bilirubin 0.7 mg/dL (0.2-1.3); Total Protein 8.2 g/dL (6.3-8.2); Triglycerides 112 mg/dL (<150)
[2020-10-26] MEDS ORDERED: risperiDONE 0.5 MG TAB PO STA (11:21)
[2020-10-26] MEDS ORDERED: FLUoxetine HCL 10 MG CAP PO STA (11:22)
--- NOTE | 2020-10-26 11:46 | P.HP ---
Psychiatric H&P - . H&P Date: 10/26/20 History & Physical: Allergies Allergy/AdvReac Type Severity Reaction Status Date / Time codeine Allergy Hallucinati Verified 10/26/20 06:59 ons amoxicillin Amoxicillin AdvReac Rash/Hives Verified 10/26/20 06:59 Vital Signs Temp 97.9 F 10/26/20 07:29 Pulse 101 H 10/26/20 07:29 Resp 16 10/26/20 07:29 BP 119/68 10/26/20 07:29 Pulse Ox 98 10/26/20 00:50 Intake & Output 10/25/20 10/26/20 10/26/20 18:59 06:59 18:59 Weight 77.111 kg Laboratory Last Values WBC 7.6 k/uL (3.8-10.6) 10/26/20 08:53 RBC 6.11 m/uL (4.30-5.90) H 10/26/20 08:53 Hgb 18.0 gm/dL (13.0-17.5) H 10/26/20 08:53 Hct 53.9 % (39.0-53.0) H 10/26/20 08:53 MCV 88.2 fL (80.0-100.0) 10/26/20 08:53 MCH 29.4 pg (25.0-35.0) 10/26/20 08:53 MCHC 33.3 g/dL (31.0-37.0) 10/26/20 08:53 RDW 13.5 % (11.5-15.5) 10/26/20 08:53 Plt Count 189 k/uL (150-450) 10/26/20 08:53 MPV 6.9 10/26/20 08:53 Neutrophils % 60 % 10/26/20 08:53 Lymphocytes % 30 % 10/26/20 08:53 Monocytes % 6 % 10/26/20 08:53 Eosinophils % 2 % 10/26/20 08:53 Basophils % 1 % 10/26/20 08:53 Neutrophils # 4.5 k/uL (1.3-7.7) 10/26/20 08:53 Lymphocytes # 2.2 k/uL (1.0-4.8) 10/26/20 08:53 Monocytes # 0.4 k/uL (0-1.0) 10/26/20 08:53 Eosinophils # 0.2 k/uL (0-0.7) 10/26/20 08:53 Basophils # 0.1 k/uL (0-0.2) 10/26/20 08:53 Sodium 139 mmol/L (137-145) 10/26/20 08:53 Potassium 4.7 mmol/L (3.5-5.1) 10/26/20 08:53 Chloride 102 mmol/L (98-107) 10/26/20 08:53 Carbon Dioxide 28 mmol/L (22-30) 10/26/20 08:53 Anion Gap 9 mmol/L 10/26/20 08:53 BUN 16 mg/dL (9-20) 10/26/20 08:53 Creatinine 1.02 mg/dL (0.66-1.25) 10/26/20 08:53 Est GFR (CKD-EPI)AfAm >90 (>60 ml/min/1.73 sqM) 10/26/20 08:53 Est GFR (CKD-EPI)NonAf >90 (>60 ml/min/1.73 sqM) 10/26/20 08:53 Glucose 95 mg/dL (74-99) 10/26/20 08:53 Calcium 10.4 mg/dL (8.4-10.2) H 10/26/20 08:53 Total Bilirubin 0.7 mg/dL (0.2-1.3) 10/26/20 08:53 AST 36 U/L (17-59) 10/26/20 08:53 ALT 63 U/L (4-49) H 10/26/20 08:53 Alkaline Phosphatase 77 U/L (38-126) 10/26/20 08:53 Total Protein 8.2 g/dL (6.3-8.2) 10/26/20 08:53 Albumin 4.9 g/dL (3.5-5.0) 10/26/20 08:53 Triglycerides 112 mg/dL (<150) 10/26/20 08:53 Cholesterol 213 mg/dL (<200) H 10/26/20 08:53 LDL Cholesterol, Calc 141 mg/dL (0-99) H 10/26/20 08:53 HDL Cholesterol 50 mg/dL (40-60) 10/26/20 08:53 TSH 2.940 mIU/L (0.465-4.680) 10/26/20 08:53 Urine Opiates Screen Not Detected (NotDetected) 10/26/20 02:20 Ur Oxycodone Screen Not Detected (NotDetected) 10/26/20 02:20 Urine Methadone Screen Not Detected (NotDetected) 10/26/20 02:20 Ur Propoxyphene Screen Not Detected (NotDetected) 10/26/20 02:20 Ur Barbiturates Screen Not Detected (NotDetected) 10/26/20 02:20 U Tricyclic Antidepress Not Detected (NotDetected) 10/26/20 02:20 Ur Phencyclidine Scrn Not Detected (NotDetected) 10/26/20 02:20 Ur Amphetamines Screen Detected (NotDetected) H 10/26/20 02:20 U Methamphetamines Scrn Detected (NotDetected) H 10/26/20 02:20 U Benzodiazepines Scrn Detected (NotDetected) H 10/26/20 02:20 Urine Cocaine Screen Not Detected (NotDetected) 10/26/20 02:20 U Marijuana (THC) Screen Detected (NotDetected) H 10/26/20 02:20 Coronavirus (PCR) Not Detected (Not Detectd) 10/26/20 04:05 10/26/20 11:30 IDENTIFYING DATA: Patient is a single, unemployed, 24-year-old male who was admitted for suicidal ideation in the context of methamphetamine abuse HPI: Patient presented to the hospital on 10/26/20 with a chief complaint of depression and suicidal ideation. The patient reports "the drugs are fcking up my head." The patient states that he last used methamphetamines 9 PM yesterday. He says that since then, he feels like his mood has been "going all over the place." He reports that he feels angry, sad, hopeless, anxious, and everything in between. He reports feeling worthlessness, and endorses suicidal thoughts. He also reports that he had thoughts of shooting himself with a firearm which she has access to at home. The patient does report that his depression has been gradually worsening over the past few months. He states that he began cutting himself superficially approximately a week ago on his right forearm. He denies any prior attempts at suicide. In regards to psychotic symptoms, the patient is not reporting any auditory or visual hallucinations. He denies any paranoia or other delusions. In regards to manic symptoms, the patient is not reporting any periods of excessive energy, difficulty sleeping, increased goal directed behavior, or grandiosity. The patient reports that he has been using methamphetamines daily for the past 2 years. He reports initially started using the drugs just to "get high" but then began using it to cope with his ongoing stressors, in particular his relationship with his now ex-girlfriend Elsa with whom he has been with for the past 4 years and has a 1-year-old son with. He does report that he broke up with his girlfriend 2-3 days prior to this admission. PAST PSYCHIATRIC HISTORY: Patient states that he was admitted to [facility] 8 months ago with the same chief complaint of suicidal ideation the context of substance abuse. The patient is unable to recall being prescribed any psychiatric medications and is not taking any in the outpatient setting. Patient denies any psychiatric outpatient follow-up. Patient denies any history of suicide attempts in the past. PMH: Past Medical History: Asthma Additional Past Medical History / Comment(s): C7 fx in 2014 History of Any Multi-Drug Resistant Organisms: None Reported Past Surgical History: No Surgical Hx Reported Past Psychological History: No Psychological Hx Reported Smoking Status: Current every day smoker Past Alcohol Use History: None Reported Past Drug Use History: Marijuana, Methamphetamine ALLERGIES: Codeine, amoxicillin CHEMICAL DEPENDENCY HISTORY: The patient's drug of choice is methamphetamines. He reports that he has been using methamphetamines daily over the past 2 years. He also reports using marijuana on occasion. He smokes one pack per day of tobacco. He denies any other illicit drug use or any significant alcohol use. FAMILY PSYCHIATRIC/SUBSTANCE USE HISTORY: The patient reports that both his parents were alcoholic. SOCIAL HISTORY: Patient was born in [place], and raised in [place]. The patient has been dating his girlfriend of 4 years Elsa but they broke up 2- 3 days prior to this admission. He has a 1-year-old son named Aureliano with Elsa. He also has a 5-year-old daughter with another woman from previous relationship. He currently lives with his mother. His mother and father when he was 17. The patient denies any significant history of trauma. He is currently unemployed. He has a ninth grade education. MENTAL STATUS EXAM: General Appearance: Patient appears to be stated age is alert, directable, and attempts to cooperate. Patient appears to have fair hygiene and grooming. The patient has multiple tattoos. Behavior: Patient is seated without any agitated behavior. Poor eye contact. Speech: Patient's speech is fluent and nonpressured. Nonspontaneous, monotone, low in volume. Mood/Affect: Patient reports their mood is depressed, affect is congruent and blunted. Suicidality/Homicidality: Patient denies having any homicidal ideation intent or plan. The patient reports suicidal ideation with a plan to shoot himself. Perceptions: Patient denies any visual hallucinations and denies any auditory hallucinations Though content/process: There is no evidence of any delusional thought content and thought process is linear and goal-directed. Memory and concentration: AOX3, grossly intact for the purposes of this session. Can spell "WORLD" backwards Judgment and insight: fair STRENGTHS/WEAKNESSES: Strength is that patient is resilient and has housing. Weakness is that patient engages in very heavy substance abuse. INTELLECT: average IMPRESSIONS: Major depressive disorder, recurrent, severe Methamphetamine abuse Nicotine dependence PLAN: -Patient is admitted under voluntary status to [facility] for stabilization of psychiatric symptoms and safety. Patient signed adult voluntary form and medication consent and is placed in patient's chart. -Medications : Will start patient on Risperdal 0.5 mg by mouth every morning, and 1 mg by mouth daily at bedtime for mood stabilization/augmentation Prozac 30 mg by mouth daily for depression/anxiety -Ativan and Haldol PRN for agitation/aggression -Patient was counselled on substance abuse and desired to cut back on use -Patient was informed of the risks, benefits and side effects of the medication and patient verbally consented to taking the medications. Patient signed med consent form and was placed in chart. -Internal Medicine consult to perform medical evaluation and physical. -NRT - nicotine patch -SW on board for discharge planning. Encourage patient to participate in groups to work on coping skills. 10/26/20 11:46
[2020-10-26] MEDS ORDERED: NICOTINE 21MG/24HR PATCH TRANSDERM SCH (12:15)
--- NOTE | 2020-10-26 12:21 | P.HPMEDMHU ---
History of Present Illness H&P Date: 10/26/20 Hospital Course: Patient is a 24-year-old male with a past medical history of polysubstance abuse and nicotine dependence. Patient currently admitted to mental health unit for reports of suicidal ideations as patient reports he has had increased depression and thoughts of suicide with a plan to shoot himself in the head. Patient reports he owns a gun and is currently locked up at his mom's house. Patient reports polysubstance use smoking both marijuana an meth. Pt reports his last time smoking meth was around 9:00 p.m. yesterday evening. Patient denies any alcohol use and denies any IVDA. Patient denies having any other complaints at this time including headache, lightheadedness, dizziness, just in vision or hearing, chest pain, palpitations, shortness of breath, abdominal pain, nausea, vomiting, or experiencing any numbness/tingling/weakness in his extremities. Review of Systoms: Pertinent positives and negatives as discussed in HPI, a complete review of systems was performed and all other systems are negative. Physical exam: General: non toxic, no distress, appears at stated age Derm: warm, dry Head: atraumatic, normocephalic, symmetric Eyes: EOMI, no lid lag, anicteric sclera Mouth: no lip lesion, mucus membranes moist Cardiovascular: S1S2 reg, no murmur, positive posterior tibial pulse bilateral, Lungs: CTA bilateral, no rhonchi, no rales , no accessory muscle use Abdominal: soft, nontender to palpation, no guarding, no appreciable organomegaly Ext: no gross muscle atrophy, no edema, no contractures Neuro: CN II-XI grossly intact, no focal neuro deficits Psych: Alert, oriented, appropriate affect Plan of care: Polysubstance abuse -Supportive care -Patient to receive continued encouragement and education on the importance of cessation of substance abuse and risks of continued use up to and including . -Patient to be encouraged to attend inpatient drug and alcohol rehabilitation facility such as a heart upon discharge from mental health unit. Nicotine dependence -Continue with patch 14 mg every 24 hours. -Patient to be continued encouragement and education on the importance of smoking cessation and risks of continued use. Suicidal ideations with a plan -Suicide precautions -Management per primary admitting psychiatric team. Thank you for allowing us to participate in the care of this pleasant patient. Do not hesitate to contact us with questions. We will follow along on an as- needed basis. RN to notify with any needs. Someone can be reached from the [facility] hospitalist group all hours of the day at [phone] or via [email or web address]. Review of Systems All systems: negative Constitutional: Denies chills, Denies fever Eyes: denies blurred vision, denies pain Ears, nose, mouth and throat: Denies headache, Denies sore throat Cardiovascular: Denies chest pain, Denies shortness of breath Respiratory: Denies cough Gastrointestinal: Denies abdominal pain, Denies diarrhea, Denies nausea, Denies vomiting Musculoskeletal: Denies myalgias Integumentary: Denies pruritus, Denies rash Neurological: Denies numbness, Denies weakness Psychiatric: Denies anxiety, Denies depression Endocrine: Denies fatigue, Denies weight change Past Medical History Additional Past Medical History / Comment(s): Polysubstance Abuse with marijuanna and meth. Nicotine dependence. Childhood asthma. C7 fx in 2013 History of Any Multi-Drug Resistant Organisms: None Reported Past Surgical History: No Surgical Hx Reported Past Psychological History: No Psychological Hx Reported Smoking Status: Current every day smoker (Smokes 1 ppd) Past Alcohol Use History: None Reported Past Drug Use History: Marijuana, Methamphetamine Medications and Allergies Home Medications Medication Instructions Recorded Confirmed Type No Known Home Medications 10/26/20 10/26/20 History Allergies Allergy/AdvReac Type Severity Reaction Status Date / Time codeine Allergy Hallucinati Verified 10/26/20 06:59 ons amoxicillin [Amoxicillin] AdvReac Rash/Hives Verified 10/26/20 06:59 Physical Exam Vitals: Vital Signs Temp Pulse Pulse Resp BP BP Pulse Ox 10/26/20 07:29 97.9 F 101 H 16 119/68 10/26/20 00:50 97.8 F 64 18 131/84 98 Intake and Output 10/25/20 10/26/20 10/26/20 22:59 06:59 14:59 Other: Weight 77.111 kg - Constitutional General appearance: no acute distress - EENT Eyes: EOMI - Neck Neck: no lymphadenopathy - Gastrointestinal General gastrointestinal: no organomegaly, soft, no tenderness Cranial Nerve Examination - Cranial Nerves Cranial Nerve I- Olfactory: Intact Cranial Nerve II- Optic: Intact Cranial Nerve III- Oculomotor: Intact Cranial Nerve IV- Trochlear: Intact Cranial Nerve V- Trigeminal: Intact Cranial Nerve - Abducens: Intact Cranial Nerve VII- Facial: Intact Cranial Nerve VIII- Auditory: Intact Cranial Nerve IX- Glossopharyngeal: Intact Cranial Nerve X- Vagus: Intact Cranial Nerve XI- Accessory: Intact Cranial Nerve XII- Hypoglossal: Intact Results CBC & Chem 7: 10/26/20 08:53 10/26/20 08:53 Labs: Abnormal Lab Results - Last 24 Hours (Table) 10/26/20 10/26/20 10/26/20 Range/Units 02:20 08:53 08:53 RBC 6.11 H (4.30-5.90) m/uL Hgb 18.0 H (13.0-17.5) gm/dL Hct 53.9 H (39.0-53.0) % Calcium 10.4 H (8.4-10.2) mg/dL ALT 63 H (4-49) U/L Cholesterol 213 H (<200) mg/dL LDL Cholesterol, Calc 141 H (0-99) mg/dL Ur Amphetamines Screen Detected H (NotDetected) U Methamphetamines Scrn Detected H (NotDetected) U Benzodiazepines Scrn Detected H (NotDetected) U Marijuana (THC) Screen Detected H (NotDetected)
[2020-10-26 19:18] LABS: Hemoglobin A1C 4.9 % (4.0-6.0)
[2020-10-26] MEDS ORDERED: risperiDONE 1 MG TAB PO SCH (21:00)
[2020-10-27] MEDS: FLUoxetine HCL 10 MG CAP PO SCH (08:13)
[2020-10-27] MEDS: NICOTINE 14MG/24HR PATCH TRANSDERM SCH (08:13)
--- NOTE | 2020-10-27 10:21 | P.PN ---
Progress Note - Text Progress Note Date: 10/27/20 Interval History: Patient was seen resting in bed and was directable and agreeable to speak with writer technical publications in his room. Patient expresses that he is feeling better. He reports that his moods appear to be in stabilized. He states that he is able to sleep well and eat well. He is not reporting any significant side effects of his medications at this time and has been in adherent. He is not reporting any suicidal or homicidal ideation, intention, and/or plan. He is denying any paranoia or other delusions. He reports that he is considering going to rehabilitation for his methamphetamine abuse. He has been appropriate in the milieu. Mental Status Exam: General Appearance: Patient appears to be stated age is alert, directable, and cooperative. Patient appears to have fair hygiene and grooming. The patient has multiple tattoos. Behavior: Patient is calmly seated without any agitated behavior. Improved eye contact but continues to be intermittent. Speech: Patient's speech is fluent and nonpressured. Nonspontaneous, monotone, low in volume. Mood/Affect: Mood is improving mildly, affect is congruent and blunted. Suicidality/Homicidality: Patient denies having any suicidal or homicidal ideation intent or plan. Perceptions: Patient denies any visual hallucinations and denies any auditory hallucinations Though content/process: There is no evidence of any delusional thought content and thought process is linear and goal-directed. Memory and concentration: AOX3, grossly intact for the purposes of this session Judgment and insight: Improving mildly Assessment Major depressive disorder, recurrent, severe Methamphetamine abuse Nicotine dependence Plan: -Patient continues to meet criteria for inpatient psychiatric admission for symptom stabilization and safety. Patient has signed adult voluntary form. -Medications: Increase Risperdal to 2 mg at bedtime for mood stabilization Continue Prozac 30 mg by mouth daily for depression/anxiety -When necessary Ativan and Haldol for agitation/aggression. -NRT - nicotine patch -SW on board for discharge planning. Encouraged the patient to participate in milieu.
[2020-10-27] MEDS: risperiDONE 2 MG TAB PO SCH (20:57)
[2020-10-28 07:02] VITALS: PULSE 95
[2020-10-28] MEDS: NICOTINE 14MG/24HR PATCH TRANSDERM SCH (08:09)
[2020-10-28] MEDS: FLUoxetine HCL 10 MG CAP PO SCH (08:09)
[2020-10-28 11:14] VITALS: BP 120/73; RESP 20; TEMP 98.2
--- NOTE | 2020-10-28 11:15 | P.PN ---
Progress Note - Text Progress Note Date: 10/28/20 Interval History: Patient was seen resting in bed and was directable and agreeable to speak with headline writer in his room. Patient reports that he is feeling slightly better. He is not reporting any suicidal or homicidal ideation, intention, and/or plan. He is not reporting any auditory or visual hallucinations. He is denying any paranoia or other delusions. He has been adherent with his medications and is not reporting any significant side effects at this time. He expresses a desire to go to rehabilitation but was concerned that he may not be able to smoke at these locations. Furthermore, he is also concerned about his insurance covering his rehabilitation. He has been more out of his room and participate in milieu activities. Mental Status Exam: General Appearance: Patient appears to be stated age is alert, directable, and cooperative. Patient appears to have fair hygiene and grooming. The patient has multiple tattoos. Behavior: Patient is calmly seated without any agitated behavior. Eye contact is appropriate. Speech: Patient's speech is fluent and nonpressured. Nonspontaneous, monotone, low in volume. Mood/Affect: Mood is improving mildly, affect is congruent and blunted. Suicidality/Homicidality: Patient denies having any suicidal or homicidal ideation intent or plan. Perceptions: Patient denies any visual hallucinations and denies any auditory hallucinations Though content/process: There is no evidence of any delusional thought content and thought process is linear and goal-directed. Memory and concentration: AOX3, grossly intact for the purposes of this session Judgment and insight: Improving mildly Assessment Major depressive disorder, recurrent, severe Methamphetamine abuse Nicotine dependence Plan: -Patient continues to meet criteria for inpatient psychiatric admission for symptom stabilization and safety. Patient has signed adult voluntary form. -Certified statement for substance abuse treatment was filled out by this provider. -Medications: Continue Risperdal 2 mg at bedtime for mood stabilization Continue Prozac 30 mg by mouth daily for depression/anxiety -When necessary Ativan and Haldol for agitation/aggression. -NRT - nicotine patch -SW on board for discharge planning. Encouraged the patient to participate in milieu.
[2020-10-28] MEDS: risperiDONE 2 MG TAB PO SCH (21:11)
[2020-10-29] MEDS: NICOTINE 14MG/24HR PATCH TRANSDERM SCH (08:21)
[2020-10-29] MEDS: FLUoxetine HCL 10 MG CAP PO SCH (08:21)
--- NOTE | 2020-10-29 11:14 | P.DS ---
Providers Date of admission: 10/26/20 06:26 Expected date of discharge: 10/29/20 Attending physician: Roberto Hobbs MD Consults: 10/26/20 06:30 Consult Physician Routine Consulting Provider: David Leonard Consult Reason/Comments: H&P for mental health admission Do you want consulting provider notified?: Yes Primary care physician: Stated None - Discharge Diagnosis(es) (1) Major depressive disorder Current Visit: Yes Status: Acute Priority: High (2) Methamphetamine abuse Current Visit: Yes Status: Acute Priority: High (3) Nicotine dependence Current Visit: Yes Status: Chronic Priority: Medium Hospital Course: Admission HPI: Patient is a single, unemployed, 24-year-old male who was admitted for suicidal ideation in the context of methamphetamine abuse Patient presented to the hospital on 10/26/20 with a chief complaint of depression and suicidal ideation. The patient reports "the drugs are fcking up my head." The patient states that he last used methamphetamines 9 PM yesterday. He says that since then, he feels like his mood has been "going all over the place." He reports that he feels angry, sad, hopeless, anxious, and everything in between. He reports feeling worthlessness, and endorses suicidal thoughts. He also reports that he had thoughts of shooting himself with a firearm which she has access to at home. The patient does report that his depression has been gradually worsening over the past few months. He states that he began cutting himself superficially approximately a week ago on his right forearm. He denies any prior attempts at suicide. In regards to psychotic symptoms, the patient is not reporting any auditory or visual hallucinations. He denies any paranoia or other delusions. In regards to manic symptoms, the patient is not reporting any periods of excessive energy, difficulty sleeping, increased goal directed behavior, or grandiosity. The patient reports that he has been using methamphetamines daily for the past 2 years. He reports initially started using the drugs just to "get high" but then began using it to cope with his ongoing stressors, in particular his relationship with his now ex-girlfriend Elsa with whom he has been with for the past 4 years and has a 1-year-old son with. He does report that he broke up with his girlfriend 2-3 days prior to this admission. Patient states that he was admitted to [facility] 8 months ago with the same chief complaint of suicidal ideation the context of substance abuse. The patient is unable to recall being prescribed any psychiatric medications and is not taking any in the outpatient setting. Patient denies any psychiatric outpatient follow-up. Patient denies any history of suicide attempts in the past. Hospital course: Upon admission to the unit patient was initially presented as withdrawn, depressed, with poor eye contact. Patient was however directable and agreeable to commence treatment. Patient got along well with other patients on the unit and followed unit protocol. Patient was compliant with the medications and d enied any side effects throughout hospital course. Patient was started on Risperdal and Prozac for management of depression in methamphetamine intoxication. Patient spoke of his stressors and engaged in therapy both group and individual. Patient was also seen by medical team for history and physical exam. Throughout the course of the hospitalization patient gradually improved with regards to mood, anxiety, sleep and became future oriented with improved insight and judgment. This provider spoke with the patient's mother expressed significant concern for his substance abuse. She petitioned him for substance abuse treatment and this provider completed a certificate. The patient has had multiple episodes of depression as a result of his methamphetamine abuse and has access to firearms placing him at increased risk for harm to self or others. This provider finds it appropriate to petitioned and certified him for substance abuse treatment as this is the primary cause for his mental health problems. On the day of discharge, the patient is not reporting any suicidal or homicidal ideation, intention, and/or plan. He is not reporting any auditory or visual hallucinations. He does not report any paranoia or other delusions. The patient's mother was informed that she will have to monitor and confiscated firearms in the interim as the patient improves in his mood. The patient does have a significant history of substance abuse and was counseled on abstaining from all substances especially methamphetamines. His insurance currently does not cover rehabilitation and this is a conversation to be had between him and his mother with her to go to rehab. He was counseled on the medications and need for regular compliance was encouraged to follow-up with his outpatient appointments for mental health for primary care. Prior to discharge, family meeting will be arranged by social service technician to answer any questions and ensure safety. Mental status exam: General Appearance: Patient appears to be stated age is alert, directable, and cooperative. Patient appears to have fair hygiene and grooming. The patient has multiple tattoos. Behavior: Patient is calmly seated without any agitated behavior. Eye contact is appropriate. Speech: Patient's speech is fluent and nonpressured. Nonspontaneous, monotone, low in volume. Mood/Affect: Mood is improving mildly, affect is congruent and constricted at baseline apparently. Suicidality/Homicidality: Patient denies having any suicidal or homicidal ideation intent or plan. Perceptions: Patient denies any visual hallucinations and denies any auditory hallucinations Though content/process: There is no evidence of any delusional thought content and thought process is linear and goal-directed. He is future oriented. Memory and concentration: AOX3, grossly intact for the purposes of this session Judgment and insight: Improved with guarded prognosis. Impression: Major depressive disorder, recurrent, severe Methamphetamine abuse Nicotine dependence Plan: -Continue with discharge today as patient has improved and stabilized psychiatrically and is not currently an imminent threat to himself and/or others. Patient will remain at chronically elevated risk for harm to self and/or others due to his methamphetamine abuse. -Continue medications: Habitrol patches Risperdal 2 mg by mouth at bedtime for mood stabilization and augmentation Prozac 30 mg by mouth daily for depression/anxiety -Patient was counseled on the need for medication compliance and appropriate follow-up at mental health and also primary care for medical issues. Patient verbalized understanding and agreed. -Social work to arrange for and conduct family meeting to ensure safety upon discharge and answer any questions/concerns. Social work also to arrange for patients follow up appointments for psychiatric care along with follow up with primary care provider. -Patient counseled on abstaining from recreational drugs and marijuana and alcohol. Was informed/educated on the adverse effects on their physical and mental health. Patient verbally agreed and understood. -Patient was instructed to return to the hospital or seek immediate medical care if their psychiatric or medical symptoms do worsen or reoccur. -Psychoeducation and supportive therapy provided to patient. Risks and benefits of pharmacological treatment versus the risks and benefits of nontreatment weight and discussed. Informed consent discussion held. Common side effects of psychotropics discussed such as, but not limited to headache, GI disturbance, sexual dysfunction, movement disorders, sedation, and orthostatic hypotension. Life threatening and blackbox warnings of prescribed medications also discussed. Potential risks of operating a vehicle or heavy machinery discussed with patient at length. Advised on importance of compliance and a reliable and responsible manner. Patient advised to review FDA consumer labeling of all medications prior to taking. Patient verbalized understanding of potential risks, and agrees with current treatment plan. Patient advised to medically contact physician/emergency personnel if any acute changes in condition occur. Vital Signs Temp 98.2 F 10/28/20 10:55 Pulse 95 10/28/20 10:55 Resp 20 10/28/20 10:55 BP 120/73 10/28/20 10:55 Pulse Ox 98 10/28/20 10:55 Laboratory Results WBC 7.6 k/uL (3.8-10.6) 10/26/20 08:53 RBC 6.11 m/uL (4.30-5.90) H 10/26/20 08:53 Hgb 18.0 gm/dL (13.0-17.5) H 10/26/20 08:53 Hct 53.9 % (39.0-53.0) H 10/26/20 08:53 MCV 88.2 fL (80.0-100.0) 10/26/20 08:53 MCH 29.4 pg (25.0-35.0) 10/26/20 08:53 MCHC 33.3 g/dL (31.0-37.0) 10/26/20 08:53 RDW 13.5 % (11.5-15.5) 10/26/20 08:53 Plt Count 189 k/uL (150-450) 10/26/20 08:53 MPV 6.9 10/26/20 08:53 Neutrophils % 60 % 10/26/20 08:53 Lymphocytes % 30 % 10/26/20 08:53 Monocytes % 6 % 10/26/20 08:53 Eosinophils % 2 % 10/26/20 08:53 Basophils % 1 % 10/26/20 08:53 Neutrophils # 4.5 k/uL (1.3-7.7) 10/26/20 08:53 Lymphocytes # 2.2 k/uL (1.0-4.8) 10/26/20 08:53 Monocytes # 0.4 k/uL (0-1.0) 10/26/20 08:53 Eosinophils # 0.2 k/uL (0-0.7) 10/26/20 08:53 Basophils # 0.1 k/uL (0-0.2) 10/26/20 08:53 Sodium 139 mmol/L (137-145) 10/26/20 08:53 Potassium 4.7 mmol/L (3.5-5.1) 10/26/20 08:53 Chloride 102 mmol/L (98-107) 10/26/20 08:53 Carbon Dioxide 28 mmol/L (22-30) 10/26/20 08:53 Anion Gap 9 mmol/L 10/26/20 08:53 BUN 16 mg/dL (9-20) 10/26/20 08:53 Creatinine 1.02 mg/dL (0.66-1.25) 10/26/20 08:53 Est GFR (CKD-EPI)AfAm >90 (>60 ml/min/1.73 sqM) 10/26/20 08:53 Est GFR (CKD-EPI)NonAf >90 (>60 ml/min/1.73 sqM) 10/26/20 08:53 Glucose 95 mg/dL (74-99) 10/26/20 08:[address] Glu mg/dL 94 10/26/20 08:53 Hemoglobin A1c 4.9 % (4.0-6.0) 10/26/20 08:53 Calcium 10.4 mg/dL (8.4-10.2) H 10/26/20 08:53 Total Bilirubin 0.7 mg/dL (0.2-1.3) 10/26/20 08:53 AST 36 U/L (17-59) 10/26/20 08:53 ALT 63 U/L (4-49) H 10/26/20 08:53 Alkaline Phosphatase 77 U/L (38-126) 10/26/20 08:53 Total Protein 8.2 g/dL (6.3-8.2) 10/26/20 08:53 Albumin 4.9 g/dL (3.5-5.0) 10/26/20 08:53 Triglycerides 112 mg/dL (<150) 10/26/20 08:53 Cholesterol 213 mg/dL (<200) H 10/26/20 08:53 LDL Cholesterol, Calc 141 mg/dL (0-99) H 10/26/20 08:53 HDL Cholesterol 50 mg/dL (40-60) 10/26/20 08:53 TSH 2.940 mIU/L (0.465-4.680) 10/26/20 08:53 Urine Opiates Screen Not Detected (NotDetected) 10/26/20 02:20 Ur Oxycodone Screen Not Detected (NotDetected) 10/26/20 02:20 Urine Methadone Screen Not Detected (NotDetected) 10/26/20 02:20 Ur Propoxyphene Screen Not Detected (NotDetected) 10/26/20 02:20 Ur Barbiturates Screen Not Detected (NotDetected) 10/26/20 02:20 U Tricyclic Antidepress Not Detected (NotDetected) 10/26/20 02:20 Ur Phencyclidine Scrn Not Detected (NotDetected) 10/26/20 02:20 Ur Amphetamines Screen Detected (NotDetected) H 10/26/20 02:20 U Methamphetamines Scrn Detected (NotDetected) H 10/26/20 02:20 U Benzodiazepines Scrn Detected (NotDetected) H 10/26/20 02:20 Urine Cocaine Screen Not Detected (NotDetected) 10/26/20 02:20 U Marijuana (THC) Screen Detected (NotDetected) H 10/26/20 02:20 Coronavirus (PCR) Not Detected (Not Detectd) 10/26/20 04:05 Allergies Allergy/AdvReac Type Severity Reaction Status Date / Time codeine Allergy Hallucinati Verified 10/26/20 06:59 ons amoxicillin Amoxicillin AdvReac Rash/Hives Verified 10/26/20 06:59 Patient Condition at Discharge: Stable Plan - Discharge Summary Discharge Rx Participant: No New Discharge Prescriptions: New Nicotine 14Mg/24Hr Patch [Habitrol] 1 patch TRANSDERM DAILY 30 Days patch risperiDONE [RisperDAL] 2 mg PO HS 30 Days tab FLUoxetine HCL [PROzac] 30 mg PO DAILY 30 Days cap Discharge Medication List FLUoxetine HCL [PROzac] 30 mg PO DAILY 30 Days cap 10/29/20 [Rx] Nicotine 14Mg/24Hr Patch [Habitrol] 1 patch TRANSDERM DAILY 30 Days patch 10/29/20 [Rx] risperiDONE [RisperDAL] 2 mg PO HS 30 Days tab 04/16/21 [Rx] Follow up Appointment(s)/Referral(s): None,Stated [Primary Care Provider] - 1-2 days Activity/Diet/Wound Care/Special Instructions: Activity and diet as tolerated. Avoid the use of street drugs and alcohol. Take all medications as prescribed. When you are in need of refills on your medications please contact your medical provider and/or outpatient psychiatrist to have this done. Please go to scheduled outpatient appointment for aftercare treatment. If symptoms return or become worse, call the crisis line at and/or go to the nearest emergency room for evaluation. Discharge Disposition: HOME SELF-CARE
== END 2020-10-29 15:35 | disposition home or self-care (01) | DRG 885 ==
LOC: EC 00:45 → 3MHU 06:26
PROVIDERS: ADMIT Psychiatry & Neurology Psychiatry; ATTEND Psychiatry & Neurology Psychiatry
DX: F33.2 Major depressive disorder, recurrent severe without psychotic features (principal); R45.851 Suicidal ideations; F12.90 Cannabis use, unspecified, uncomplicated; F15.129 Other stimulant abuse with intoxication, unspecified; F17.210 Nicotine dependence, cigarettes, uncomplicated; F41.9 Anxiety disorder, unspecified; J45.909 Unspecified asthma, uncomplicated; R45.850 Homicidal ideations; Z56.0 Unemployment, unspecified; Z79.899 Other long term (current) drug therapy; Z20.822 Contact with and (suspected) exposure to COVID-19
CPT/HCPCS: 80053; 80061; 80306; 82075; 83036; 84443; 85025; 87635

== ENCOUNTER 2020-12-05 14:26 | Inpatient (IN) | payer BC, MEDICAID ==
--- NOTE | 2020-12-05 15:00 | ED ---
General Adult HPI - General Chief complaint: Psychiatric Symptoms Stated complaint: petition Time Seen by Provider: 12/05/20 14:48 Source: patient, EMS Mode of arrival: ambulatory Limitations: no limitations - History of Present Illness Initial comments: Dictation was produced using Moz dictation software. please excuse any grammatical, word or spelling errors. Chief Complaint: 24-year-old male brought in by law enforcement for attempted suicide History of Present Illness: 24-year-old male brought in by law enforcement for attempted suicide. Patient is uncooperative however states that he tried to harm himself by wrapping his neck with a wire. He states he was upset because of a lot of things that are happening in his life. Patient's mother noted that patient was attempting to harm himself and called law enforcement. Patient is brought to the emergency department. The medical complaints at this time. The ROS documented in this emergency department record has been reviewed and confirmed by me. Those systems with pertinent positive or negative responses have been documented in the HPI. All other systems are other negative and/or noncontributory. PHYSICAL EXAM: General Impression: Alert and oriented x3, not in acute distress, no signs rest her distress, normal phonation HEENT: Normocephalic atraumatic, extra-ocular movements intact, pupils equal and reactive to light bilaterally, mucous membranes moist. Superficial linear scratches around the neck area Cardiovascular: Heart regular rate and rhythm Chest: Able to complete full sentences, no retractions, no tachypnea Abdomen: abdomen soft, non-tender, non-distended, no organomegaly Musculoskeletal: Pulses present and equal in all extremities, no peripheral edema Motor: no focal deficits noted Neurological: CN II-XII grossly intact, no focal motor or sensory deficits noted Skin: Intact with no visualized rashes Psych: Depressed ED course: 24-year-old male presents to the emergency department for suicidal attempt. Vital Signs upon arrival shows heart rate of 110, respiratory signs within acceptable limits. CT soft tissue neck is unremarkable. Patient reevaluated at bedside at 4:15 PM found to be stable medical condition. Patient assures signs of respiratory distress, dysphonia or dysphagia. Patient medically cleared for EPS evaluation. Patient observed in the emergency department for proximally 4 hours. He is evaluated by psychiatry who will admit patient to inpatient psychiatry. Certification completed. Patient reevaluated at bedside at approximately 6:00 PM.abdomen stable medical condition. Not showing any signs of respiratory distress. - Related Data Home Medications Medication Instructions Recorded Confirmed Nicotine 14Mg/24Hr Patch [Habitrol] 1 patch TRANSDERM DAILY PRN 12/05/20 12/05/20 Previous Rx's Medication Instructions Recorded FLUoxetine HCL [PROzac] 30 mg PO DAILY 30 Days cap 10/29/20 risperiDONE [RisperDAL] 2 mg PO HS 30 Days tab 10/29/20 Allergies Allergy/AdvReac Type Severity Reaction Status Date / Time codeine Allergy Hallucinati Verified 12/05/20 14:53 ons amoxicillin [Amoxicillin] AdvReac Rash/Hives Verified 12/05/20 14:53 Review of Systems ROS Statement: Those systems with pertinent positive or pertinent negative responses have been documented in the HPI. ROS Other: All systems not noted in ROS Statement are negative. Past Medical History Past Medical History: Asthma Additional Past Medical History / Comment(s): C7 fx in 2013 History of Any Multi-Drug Resistant Organisms: None Reported Past Surgical History: No Surgical Hx Reported Past Psychological History: No Psychological Hx Reported Smoking Status: Current every day smoker Past Alcohol Use History: None Reported Past Drug Use History: Marijuana, Methamphetamine General Exam Limitations: no limitations Course Vital Signs 12/05/20 14:47 Temperature 98.4 F Pulse Rate 110 H Respiratory 22 Rate Blood Pressure 129/72 O2 Sat by Pulse 97 Oximetry Disposition Clinical Impression: Attempted suicide Disposition: ADMITTED IP TO THIS HOSP Condition: Fair Referrals: None,Stated [Primary Care Provider] - 1-2 days
--- NOTE | 2020-12-05 16:02 | CT ---
EXAMINATION TYPE: CT soft tissue neck wo con DATE OF EXAM: 12/05/2020 HISTORY: Neck scratches, attempted hanging. COMPARISON: 12/30/2013. CT DLP: 307.6 mGycm. Automated Exposure Control for Dose Reduction was Utilized. TECHNIQUE: CT scan of the neck is performed without contrast, axial images are obtained, coronal and sagittal reformatted images are reviewed. FINDINGS: Airway: No gross abnormality seen. Parotid/submandibular glands: No gross abnormality seen. Carotid/Vascular Structures: No gross abnormality. Osseous Structures: No gross abnormality. Other: None IMPRESSION: No significant abnormality is seen.
[2020-12-05] MEDS ORDERED: HALOPERIDOL LACTATE 5 MG/ML 1 ML VIAL IM STA (18:03)
[2020-12-05] MEDS ORDERED: LORazepam 2 MG/ML INJ IM STA (18:03)
[2020-12-05] MEDS ORDERED: diphenhydrAMINE 50 MG/ML 1 ML VIAL IM STA (18:03)
[2020-12-05] MEDS ORDERED: MAG HYDROX/AL HYDROX/SIMETH 30 ML CUP PO PRN (19:18)
[2020-12-05] MEDS ORDERED: ACETAMINOPHEN TAB 325 MG TAB PO PRN (19:18)
[2020-12-05] MEDS ORDERED: MAGNESIUM HYDROXIDE 2,400 MG/10 ML CUP PO PRN (19:18)
[2020-12-05] MEDS ORDERED: LORazepam 2 MG/ML INJ IM PRN (19:28)
[2020-12-05] MEDS ORDERED: HALOPERIDOL LACTATE 5 MG/ML 1 ML VIAL IM PRN (19:29)
[2020-12-05] MEDS ORDERED: risperiDONE 2 MG TAB PO SCH (21:00)
--- NOTE | 2020-12-06 02:26 | P.PN ---
Progress Note - Text Progress Note Date: 12/06/20 Patient sedated. Unable to evaluate. Will attempt again tomorrow.
[2020-12-06] MEDS: NICOTINE 14MG/24HR PATCH TRANSDERM SCH (08:46)
[2020-12-06] MEDS: FLUoxetine HCL 10 MG CAP PO SCH (08:46)
--- NOTE | 2020-12-06 12:16 | P.HP ---
Psychiatric H&P - . H&P Date: 12/06/20 History & Physical: Allergies Allergy/AdvReac Type Severity Reaction Status Date / Time codeine Allergy Hallucinati Verified 12/05/20 20:06 ons amoxicillin Amoxicillin AdvReac Rash/Hives Verified 12/05/20 20:06 Vital Signs Temp 97.2 F L 12/06/20 09:49 Pulse 98 12/05/20 20:14 Resp 17 12/05/20 20:14 BP 143/72 12/05/20 20:14 Pulse Ox 98 12/05/20 19:54 Intake & Output 12/05/20 12/06/20 12/06/20 18:59 06:59 18:59 Weight 81.647 kg 81.647 kg Laboratory Last Values Coronavirus (PCR) Not Detected (Not Detectd) 12/05/20 17:51 12/06/20 12:08 IDENTIFYING DATA: Patient is a 24-year-old male who currently lives with his mother in the house has 2 kids and is unemployed HPI: Patient presented to the hospital on petition by corporate compliance officer stating that patient was attempting to hang himself with a wire around his neck and this was seen by patient's mother. According to petition patient also had stated that he wanted to kill himself. Patient has a history of methamphetamine abuse and was recently hospitalized over a month ago on the mental health unit and discharged on Prozac and Risperdal. Patient was seen today by investment underwriter wondering the hallways and was agreeable to speak. Patient appeared to be fairly vague and concrete. He states that he was arguing with his mother and that "she called the project management intern on me". He used profane words when describing his mother and stated that she wanted to put him in the hospital. He states that he is a "recovering addict" and states that he used to use methamphetamine. He claims that his last use was approximately 3 weeks ago and has been using for approximately 2 years. He claims that when he uses uses around 3 g per day. He claims that today his mood is "fine" and denies any anxiety. He was fairly evasive and guarded about the situation and denies everything on the petition. He claims that he is stressed because he is missed his job interview and seems that he has been taking his medications at home. His hygiene was poor. He claims that he has fair sleep. He appears to have very poor insight and judgment. Patient denies any suicidal or homicidal ideations intent or plan. At this time patient denies any auditory or visual hallucinations. Patient denies any flight of ideas racing thoughts and increased in goal directed behavior. Patient admits to using methamphetamine as described above and cigarettes daily. He claims that he smokes marijuana occasionally. PAST PSYCHIATRIC HISTORY: Patient states that he has a history of polysubstance abuse and depression. Patient was previously on Risperdal and Prozac. Patient was recently hospitalized over a month ago on the mental health unit. Patient denies any psychiatric outpatient follow-up. Patient denies any history of suici de attempts in the past. PMH: Asthma ALLERGIES: as per EMR CHEMICAL DEPENDENCY HISTORY: as per HPI FAMILY PSYCHIATRIC/SUBSTANCE USE HISTORY: CLaims that both parents are alcoholics SOCIAL HISTORY: The patient has been dating his girlfriend of 4 years Elsa but they broke up 2-3 days prior to this admission. He has a 1-year-old son named Aureliano with Elsa. He also has a 5-year-old daughter with another woman from previous relationship. He currently lives with his mother. His mother and father when he was 17. The patient denies any significant history of trauma. He is currently unemployed. He has a ninth grade education. MENTAL STATUS EXAM: General Appearance: Patient appears to be tattoos, poor hygiene and grooming, stated age is alert, vague and evasive. Patient appears to have poor hygiene and grooming. Behavior: Patient is seated without any agitated behavior. And vague and guarded. Speech: Patient's speech is fluent and nonpressured. [place] Mood/Affect: Patient reports their mood is "okay", affect is incongruent and constricted. Suicidality/Homicidality: Patient denies having any homicidal ideation intent or plan. Denies any suicidal ideations intent or plan Perceptions: Patient denies any visual hallucinations and denies any auditory hallucinations Though content/process: Patient is concrete, poverty of content. Minimizing his stressors. Memory and concentration: AOX3, grossly intact for the purposes of this session. Can spell "WORLD" backwards Judgment and insight: poor STRENGTHS/WEAKNESSES: strength is that patient is resilient. Weakness is that patient has poor judgment and is impulsive INTELLECT: average IMPRESSIONS: Major depressive disorder, recurrent, severe Methamphetamine abuse Cannabis use disorder Nicotine dependence PLAN: -Patient is admitted under involuntary status to MHU for stabilization of psychiatric symptoms and safety. Patient has signed adult voluntary form and medication consent and is placed in patient's chart. A second certification was completed and along with petition will be filed for court. -Medications : Will start patient on Risperdal 1 mg daily at bedtime for mood stabilization/insomnia. Prozac 20 mg daily for mood/anxiety. -Ativan and Haldol PRN for agitation/aggression -Patient was counselled on substance abuse and desired to cut back on use -Patient was informed of the risks, benefits and side effects of the medication and patient verbally consented to taking the medications. Patient signed med consent form and was placed in chart. -Internal Medicine consult to perform medical evaluation and physical. -NRT - nicotine patch -SW on board for discharge planning. Encourage patient to participate in groups to work on coping skills. Will await deferral and court date. 12/06/20 12:13
[2020-12-06] MEDS: LORazepam 1 MG TAB PO PRN (19:20)
[2020-12-06] MEDS ORDERED: risperiDONE 2 MG TAB PO SCH (21:00)
--- NOTE | 2020-12-07 00:31 | P.PN ---
Progress Note - Text Progress Note Date: 12/07/20 Patient refused to speak to senior mortgage underwriter or be examined. Will attempt tomorrow.
[2020-12-07] MEDS: FLUoxetine HCL 10 MG CAP PO SCH (08:29)
[2020-12-07] MEDS: LORazepam 1 MG TAB PO PRN ×2 (08:30→18:34)
[2020-12-07] MEDS: NICOTINE 14MG/24HR PATCH TRANSDERM SCH (08:38)
--- NOTE | 2020-12-07 11:20 | P.PN ---
Progress Note - Text Progress Note Date: 12/07/20 Interval History: Patient was seen lying in his bed this morning and was directable and agreeable to speak with chart writer in the office. Patient continues to have very poor insight into his condition and need for treatment. He claims that he has been taking his medications and is denying any issues with the meds at this time. He claims that he is able to sleep fairly throughout the night. He claims that he has not talked to his mother yet however continues to have harsh words about her. He states that he has not been going to groups her timing to interact with others on the unit. He remains fairly isolative. He was fairly concrete and guarded with brighter today about his mood and anxiety. He continues to deny suicide attempt. He states that he has a fair appetite. At this time patient denies any suicidal or homical ideations, intent or plan. Patient denies any auditory, visual hallucinations and denies any paranoia or delusions. Patient denies any side effects from the medications and has been compliant with meds. Mental Status Exam: General Appearance: Patient appears to have several tattoos, poor hygiene and grooming, stated age is alert, vague and evasive. Behavior: Patient is seated without any agitated behavior. vague and guarded. Speech: Patient's speech is fluent and nonpressured. [place] Mood/Affect: Patient reports their mood is "ok", affect is congruent and constricted. Suicidality/Homicidality: Patient denies having any homicidal ideation intent or plan. Denies any suicidal ideations intent or plan Perceptions: Patient denies any visual hallucinations and denies any auditory hallucinations Though content/process: Patient is concrete, poverty of content. Minimizing his stressors. Memory and concentration: AOX3, grossly intact for the purposes of this session. Judgment and insight: poor Assessment Major depressive disorder, recurrent, severe Methamphetamine abuse Cannabis use disorder Nicotine dependence Plan: -Patient continues to meet criteria for inpatient psychiatric admission for symptom stabilization and safety. Patient has not signed adult voluntary form and medication consent and was placed in patient's chart. -Medications: Will increase Prozac to 40 mg starting tomorrow for mood/anxiety. Continue with Risperdal 1 mg daily at bedtime for mood stabilization/insomnia. -When necessary Ativan and Haldol for agitation/aggression. -NRT - nicotine patch -SW on board for discharge planning. Encouraged the patient to participate in milieu. Patient's deferral is set for 12/[address] on 12/22. Likely discharge towards the end of the week if patient defers.
[2020-12-07] MEDS ORDERED: risperiDONE 1 MG TAB PO SCH (21:00)
[2020-12-08] MEDS: FLUoxetine HCL 20 MG CAP PO SCH (08:56)
[2020-12-08] MEDS: LORazepam 1 MG TAB PO PRN ×2 (08:57→14:40)
--- NOTE | 2020-12-08 09:48 | P.PN ---
Progress Note - Text Progress Note Date: 12/08/20 Interval History: Patient was seen lying in his bed this morning and was directable and agreeable to speak with group underwriter. Patient appears to be more cooperative with group underwriter. He didn't endorse any overnight complaints. He states that he slept soundly throughout the night. He claims that he has been taking his medications as prescribed however was too tired yesterday to take his evening medication of Risperdal. He states that he has been going to some groups on the unit. He was asking about the court process and when his pneumatic hoist operator can come and see him. He states that he may go to his grandparents house or his father's house upon discharge. He was fairly concrete and guarded with brighter today about his mood and anxiety. He states that he has a fair appetite. At this time patient denies any suicidal or homical ideations, intent or plan. Patient denies any auditory, visual hallucinations and denies any paranoia or delusions. Patient denies any side effects from the medications and has been compliant with meds. Mental Status Exam: General Appearance: Patient appears to have several tattoos, poor hygiene and grooming, stated age is alert, more cooperative Behavior: Patient is seated without any agitated behavior. More cooperative Speech: Patient's speech is fluent and nonpressured. [place] Mood/Affect: Patient reports their mood is "fine", affect is congruent and constricted. Suicidality/Homicidality: Patient denies having any homicidal ideation intent or plan. Denies any suicidal ideations intent or plan Perceptions: Patient denies any visual hallucinations and denies any auditory hallucinations Though content/process: Patient is concrete, poverty of content. Logical Memory and concentration: AOX3, grossly intact for the purposes of this session. Judgment and insight: Improving mildly Assessment Major depressive disorder, recurrent, severe Methamphetamine abuse Cannabis use disorder Nicotine dependence Plan: -Patient continues to meet criteria for inpatient psychiatric admission for symptom stabilization and safety. Patient has not signed adult voluntary form and medication consent and was placed in patient's chart. -Medications: Continue with Prozac 40 mg starting tomorrow for mood/anxiety. Discontinued Risperdal due to the potential interaction with Prozac. Replaced with 50 mg Seroquel daily at bedtime for mood stabilization/insomnia. -When necessary Ativan and Haldol for agitation/aggression. -NRT - nicotine patch -SW on board for discharge planning. Encouraged the patient to participate in milieu. Patient's deferral is set for 12/[address] hearing on 12/22. Likely discharge after if patient ends up deferring.
[2020-12-08] MEDS: QUEtiapine 50 MG TAB PO SCH (22:04)
[2020-12-09 06:14] VITALS: BP 123/63; PULSE 68; RESP 15
[2020-12-09] MEDS: FLUoxetine HCL 20 MG CAP PO SCH (09:46)
[2020-12-09] MEDS: LORazepam 1 MG TAB PO PRN ×2 (09:47→17:11)
--- NOTE | 2020-12-09 11:20 | P.PN ---
Progress Note - Text Progress Note Date: 12/09/20 Interval History: Patient was seen lying in his bed this morning and was directable and agreeable to speak with senior writer. Patient appears to be cooperative with senior writer. He didn't endorse any overnight complaints and states that he is doing "okay" today. He states that he has not spoken with his mother over the phone and does not know who he will be going to stay with once he is discharged. He states that he slept soundly throughout the night. He claims that he has been taking his medications as prescribed. He did claim that he took Haldol by mouth yesterday for "racing thoughts" which had helped him. He states that he has been going to some groups on the unit. He was fairly concrete and guarded but does claim that his mood and anxiety even gradually improving. he is denying any racing thoughts at this time. He states that he has a fair appetite. At this time patient denies any suicidal or homical ideations, intent or plan. Patient denies any auditory, visual hallucinations and denies any paranoia or delusions. Patient denies any side effects from the medications and has been compliant with meds. Mental Status Exam: General Appearance: Patient appears to have several tattoos, poor hygiene and grooming, stated age is alert, more cooperative Behavior: Patient is seated without any agitated behavior. More cooperative Speech: Patient's speech is fluent and nonpressured. [place] Mood/Affect: Patient reports their mood is "fine", affect is congruent and constricted. Suicidality/Homicidality: Patient denies having any homicidal ideation intent or plan. Denies any suicidal ideations intent or plan Perceptions: Patient denies any visual hallucinations and denies any auditory hallucinations Though content/process: Patient is concrete, poverty of content. Logical Memory and concentration: AOX3, grossly intact for the purposes of this session. Judgment and insight: Improving mildly Assessment Major depressive disorder, recurrent, severe Methamphetamine abuse Cannabis use disorder Nicotine dependence Plan: -Patient continues to meet criteria for inpatient psychiatric admission for symptom stabilization and safety. Patient has not signed adult voluntary form and medication consent and was placed in patient's chart. -Medications: Continue with Prozac 40 mg starting tomorrow for mood/anxiety. Continue with 50 mg Seroquel daily at bedtime for mood stabilization/insomnia. -When necessary Ativan and Haldol for agitation/aggression. -NRT - nicotine patch -SW on board for discharge planning. Encouraged the patient to participate in milieu. Patient's deferral is set for 12/[address] on 12/22. Likely discharge after if patient ends up deferring tomorrow.
[2020-12-09] MEDS: QUEtiapine 50 MG TAB PO SCH (21:41)
[2020-12-10] MEDS: FLUoxetine HCL 20 MG CAP PO SCH (08:18)
[2020-12-10 09:48] VITALS: TEMP 97.6
[2020-12-10] MEDS ORDERED: QUEtiapine 50 MG TAB PO PRN (10:24)
--- NOTE | 2020-12-10 11:07 | P.DS ---
Providers Date of admission: 12/05/20 19:13 Expected date of discharge: 12/10/20 Attending physician: Shad Frias MD Consults: 12/05/20 19:18 Consult Physician Routine Consulting Provider: [facility] Consult Reason/Comments: medical management Do you want consulting provider notified?: Yes Primary care physician: Stated None - Discharge Diagnosis(es) (1) Major depressive disorder, recurrent, severe with psychotic features Current Visit: Yes Status: Acute Priority: High (2) Methamphetamine abuse Current Visit: Yes Status: Acute Priority: High (3) Cannabis use disorder, mild, abuse Current Visit: Yes Status: Acute Priority: Medium (4) Nicotine dependence Current Visit: Yes Status: Acute Priority: Low Hospital Course: Admission HPI: Admission note was completed by com writer "Patient is a 24-year-old male who currently lives with his mother in the house has 2 kids and is unemployed. Patient presented to the hospital on petition by boating safety officer stating that patient was attempting to hang himself with a wire around his neck and this was seen by patient's mother. According to petition patient also had stated that he wanted to kill himself. Patient has a history of methamphetamine abuse and was recently hospitalized over a month ago on the mental health unit and discharged on Prozac and Risperdal. Patient was seen today by com writer wondering the hallways and was agreeable to speak. Patient appeared to be fairly vague and concrete. He states that he was arguing with his mother and that "she called the supervisor concrete block plant on me". He used profane words when describing his mother and stated that she wanted to put him in the hospital. He states that he is a "recovering addict" and states that he used to use methamphetamine. He claims that his last use was approximately 3 weeks ago and has been using for approximately 2 years. He claims that when he uses uses around 3 g per day. He claims that today his mood is "fine" and denies any anxiety. He was fairly evasive and guarded about the situation and denies everything on the petition. He claims that he is stressed because he is missed his job interview and seems that he has been taking his medications at home. His hygiene was poor. He claims that he has fair sleep. He appears to have very poor insight and judgment. Patient denies any suicidal or homicidal ideations intent or plan. At this time patient denies any auditory or visual hallucinations. Patient denies any flight of ideas racing thoughts and increased in goal directed behavior. Patient admits to using methamphetamine as described above and cigarettes daily. He claims that he smokes marijuana occasionally." Hospital course: Upon admission to the unit patient was initially depressed and anxious and psychotic. Patient was however admitted involuntarily and patient ended up signing a deferral with his general production worker on day of discharge. Patient got along well with other patients on the unit and followed unit protocol. Patient was compliant with the medications and denied any side effects throughout hospital course. Patient was started on Seroquel 50 mg daily at bedtime for mood stabilization/psychosis/insomnia. A when necessary dose of Seroquel 50 mg daily was added as patient was having anxiety and racing thoughts during the day at times. Patient was also started on Prozac 40 mg daily for mood/anxiety. Nathalie novoa spoke of his stressors however for the most part was fairly isolative on the unit and did not participate much in groups and therapy. Patient was also seen by medical team for history and physical exam. Patient had a computed tomography scan of his neck on admission which did not show any acute abnormalities due to patient apparently trying to strangle himself prior to coming into the hospital. Throughout the course of the hospitalization patient gradually improved with regards to mood, anxiety, psychosis, sleep and return back to his baseline level of functioning. On the day of discharge patient denied any suicidal or homicidal ideations intent or plan denied any auditory or visual hallucinations. Patient endorsed wanting to live for his health and family. The patient denied any access to guns or weapons. Patient denied any paranoia and did not endorse any delusions. Patient does have a significant history of substance abuse and was counseled on abstaining from all substances including alcohol and marijuana. Patient was offered however declined inpatient substance-abuse rehab. Patient was also counseled on the medications and need for regular compliance and was encouraged to follow-up with their outpatient appointment for mental health and also for primary care. Prior to discharge a family meeting will be arranged by social services technician to answer any questions and ensure safety upon discharge. Mental status exam: General Appearance: Patient appears to be stated age is alert, pleasant, and cooperative. Patient is in no acute distress and has improved hygiene and groo lara Behavior: Patient is calmly seated without any agitated behavior. Speech: Patient's speech is fluent and nonpressured. Mood/Affect: Patient reports their mood is "better", affect is congruent and constricted Suicidality/Homicidality: Patient denies having any suicidal or homicidal ideation intent or plan. Perceptions: Patient denies any auditory or visual hallucinations. Though content/process: There is no evidence of any delusional thought content and thought process is linear and goal-directed. [place] Memory and concentration: AOX3, grossly intact for the purposes of this session. Can spell "WORLD" backwards correctly. Judgment and insight: chronically poor, however has improved with guarded prognosis Impression: Major depressive disorder, recurrent, severe with psychotic features Methamphetamine abuse Cannabis use disorder Nicotine dependence Plan: -Continue with discharge today as patient has improved and stabilized psychiatrically and is not currently an imminent threat to himself and/or others. Patient will remain at chronically elevated risk for harm to self and/or others due to his impulsivity and polysubstance abuse. -Continue medications: Prozac 40 mg daily for mood/anxiety, Seroquel 50 mg scheduled daily at bedtime +50 mg daily when necessary for anxiety/mood stabilization. -Patient was counseled on the need for medication compliance and appropriate follow-up at mental health and also primary care for medical issues. Patient verbalized understanding and agreed. -Social work to arrange for and conduct family meeting to ensure safety upon discharge and answer any questions/concerns. Social work also to arrange for patients follow up appointments with [facility] for psychiatric care along with follow up with primary care provider. -Patient counseled on abstaining from recreational drugs and marijuana and alcohol. Was informed/educated on the adverse effects on their physical and mental health. Patient verbally agreed and understood. Patient was offered substance abuse treatment however declined at this time. -Patient was instructed to return to the hospital or seek immediate medical care if their psychiatric or medical symptoms do worsen or reoccur. Allergies Allergy/AdvReac Type Severity Reaction Status Date / Time codeine Allergy Hallucinati Verified 12/05/20 20:06 ons amoxicillin [Amoxicillin] AdvReac Rash/Hives Verified 12/05/20 20:06 Laboratory Results Coronavirus (PCR) Not Detected (Not Detectd) 12/05/20 17:51 Vital Signs Temp 97.6 F 12/10/20 09:48 Pulse 68 12/09/20 06:13 Resp 15 12/09/20 06:13 BP 123/63 12/09/20 06:13 Pulse Ox 97 12/08/20 09:00 Patient Condition at Discharge: Stable Plan - Discharge Summary Discharge Rx Participant: No New Discharge Prescriptions: New Nicotine 14Mg/24Hr Patch [Habitrol] 1 patch TRANSDERM DAILY 14 Days patch FLUoxetine HCL [PROzac] 30 mg PO DAILY 30 Days cap Discontinued risperiDONE [RisperDAL] 2 mg PO HS 30 Days tab Nicotine 14Mg/24Hr Patch [Habitrol] 1 patch TRANSDERM DAILY PRN PRN Reason: Nicotine Cravings FLUoxetine HCL [PROzac] 30 mg PO DAILY 30 Days cap Discharge Medication List FLUoxetine HCL [PROzac] 30 mg PO DAILY 30 Days cap 12/06/20 [Rx] Nicotine 14Mg/24Hr Patch [Habitrol] 1 patch TRANSDERM DAILY 14 Days patch 12/06/20 [Rx] Follow up Appointment(s)/Referral(s): [facility] [Outside] - 12/17/20 1:00 pm (Appointment 12/17/20 at 1 pm with Calista at the [place] office located at [address] [place] [address] [address] [address]. ) [facility] [NON-STAFF] - 1 Week Patient Instructions/Handouts: Depression (DC), Cannabis Abuse (DC), Methamphetamine Abuse (DC) Activity/Diet/Wound Care/Special Instructions: Activity and diet as tolerated. Avoid the use of street drugs and alcohol. Take all medications as prescribed. When you are in need of refills on your medications please contact your medical provider and/or outpatient psychiatrist to have this done. Please go to scheduled outpatient appointment for aftercare treatment. If symptoms return or become worse, call the crisis line at and/or go to the nearest emergency room for evaluation. Discharge Disposition: HOME SELF-CARE
== END 2020-12-10 13:20 | disposition home or self-care (01) | DRG 885 ==
LOC: EC 14:26 → 3MHU 19:13
PROVIDERS: ADMIT Psychiatry & Neurology Psychiatry; ATTEND Psychiatry & Neurology Psychiatry
DX: F33.3 Major depressive disorder, recurrent, severe with psychotic symptoms (principal); R45.851 Suicidal ideations; F12.10 Cannabis abuse, uncomplicated; F15.10 Other stimulant abuse, uncomplicated; F17.210 Nicotine dependence, cigarettes, uncomplicated; F41.9 Anxiety disorder, unspecified; G47.00 Insomnia, unspecified; J45.909 Unspecified asthma, uncomplicated; Z56.0 Unemployment, unspecified; Z79.899 Other long term (current) drug therapy; Z20.822 Contact with and (suspected) exposure to COVID-19
CPT/HCPCS: 70490; 82075; 87635; 96372; 99285

== ENCOUNTER 2021-07-28 22:53 | Inpatient (IN) | payer BC, MEDICAID, OTHER ==
[2021-07-29] MEDS ORDERED: MAGNESIUM HYDROXIDE 2,400 MG/10 ML CUP PO PRN (01:55)
[2021-07-29] MEDS ORDERED: ACETAMINOPHEN TAB 325 MG TAB PO PRN (01:55)
[2021-07-29] MEDS ORDERED: HALOPERIDOL LACTATE 5 MG/ML 1 ML VIAL IM PRN (01:55)
[2021-07-29] MEDS ORDERED: MAG HYDROX/AL HYDROX/SIMETH 30 ML CUP PO PRN (01:55)
[2021-07-29] MEDS ORDERED: LORazepam 1 MG TAB PO PRN (01:55)
--- NOTE | 2021-07-29 01:56 | ED ---
Psych HPI - General Chief Complaint: Psychiatric Symptoms Stated Complaint: Mental Health Time Seen by Provider: 07/28/21 23:03 Source: patient, police, EMS Mode of arrival: EMS - History of Present Illness Initial Comments: This patient is a 25-year-old man is brought to have psychiatric evaluation. Per petition that accompanies the patient he had been making statements indic ating suicidal ideation and he also had been threatening to tie shoelaces around his neck. When I interview the patient, he is not forthcoming about any of this. MD Complaint: suicidal ideation -: days(s) Associated Psychiatric Symptoms: depression, suicidal ideation Quality: getting worse Improves With: none Worsens With: none Treatments Prior to Arrival: none - Related Data Allergies Allergy/AdvReac Type Severity Reaction Status Date / Time codeine Allergy Hallucinati Verified 12/05/20 20:06 ons amoxicillin [Amoxicillin] AdvReac Rash/Hives Verified 12/05/20 20:06 Review of Systems ROS Statement: Those systems with pertinent positive or pertinent negative responses have been documented in the HPI. ROS Other: All systems not noted in ROS Statement are negative. Constitutional: Denies: fever, chills, weakness Past Medical History Past Medical History: Asthma Additional Past Medical History / Comment(s): C7 fx in 2013 History of Any Multi-Drug Resistant Organisms: None Reported Past Surgical History: No Surgical Hx Reported Past Psychological History: No Psychological Hx Reported Smoking Status: Current every day smoker Past Alcohol Use History: None Reported Past Drug Use History: Methamphetamine General Exam Limitations: no limitations Course Vital Signs 07/28/21 07/29/21 07/29/21 23:09 00:18 02:16 Temperature 98.8 F 97.8 F Pulse Rate 84 70 77 Pulse Rate [ Right] Respiratory 20 16 13 Rate Blood Pressure 149/87 148/88 127/66 Blood Pressure [Right Arm] O2 Sat by Pulse 96 97 95 Oximetry 07/29/21 07/29/21 03:03 03:50 Temperature 99.9 F H 102.9 F H Pulse Rate Pulse Rate [ 128 H Right] Respiratory 17 Rate Blood Pressure Blood Pressure 133/77 [Right Arm] O2 Sat by Pulse 99 Oximetry Medical Decision Making - Lab Data Result diagrams: 07/29/21 04:00 Lab Results 07/29/21 07/29/21 Range/Units 00:24 04:00 WBC 13.6 H (3.8-10.6) k/uL RBC 4.86 (4.30-5.90) m/uL Hgb 14.2 (13.0-17.5) gm/dL Hct 41.7 (39.0-53.0) % MCV 85.8 (80.0-100.0) fL MCH 29.3 (25.0-35.0) pg MCHC 34.1 (31.0-37.0) g/dL RDW 12.8 (11.5-15.5) % Plt Count 178 (150-450) k/uL MPV 7.4 Neutrophils % 83 % Lymphocytes % 9 % Monocytes % 6 % Eosinophils % 1 % Basophils % 0 % Neutrophils # 11.2 H (1.3-7.7) k/uL Lymphocytes # 1.2 (1.0-4.8) k/uL Monocytes # 0.9 (0-1.0) k/uL Eosinophils # 0.1 (0-0.7) k/uL Basophils # 0.0 (0-0.2) k/uL Coronavirus (PCR) Not Detected (Not Detectd) Disposition Clinical Impression: Mood disorder Referrals: None,Stated [Primary Care Provider] - 1-2 days
[2021-07-29] MEDS ORDERED: LORazepam 2 MG/ML INJ IM PRN (01:57)
[2021-07-29] MEDS ORDERED: haloperidoL 5 MG TAB PO PRN (01:58)
[2021-07-29] MEDS ORDERED: IBUPROFEN 400 MG TAB PO PRN (03:36)
[2021-07-29] MEDS ORDERED: SODIUM CHLORIDE 0.9% 1,000 ML IV ONE (03:36)
--- NOTE | 2021-07-29 03:44 | P.MDCNMH ---
History of Present Illness H&P Date: 07/29/21 Chief Complaint: body aches 25 year old male with substance abuse he comes in today petitioned for evaluation due to psychosis and suicidal ideation patient admits to actively using meth, he is complaining of generalized body aches and fevers, he is afraid that he has an infection. he denies sharing needles. patient otherwise gives limited history as he is sleepy and not fully engaged with the interview blood work pending Review of Systems ROS unobtainable: due to mental status Past Medical History Past Medical History: Asthma Additional Past Medical History / Comment(s): C7 fx in 2013 History of Any Multi-Drug Resistant Organisms: None Reported Past Surgical History: No Surgical Hx Reported Past Psychological History: No Psychological Hx Reported Smoking Status: Current every day smoker Past Alcohol Use History: None Reported Past Drug Use History: Methamphetamine - Past Family History family Family Medical History: Unable to Obtain Medications and Allergies Allergies Allergy/AdvReac Type Severity Reaction Status Date / Time codeine Allergy Hallucinati Verified 12/05/20 20:06 ons amoxicillin [Amoxicillin] AdvReac Rash/Hives Verified 12/05/20 20:06 Physical Exam Vitals: Vital Signs Temp Pulse Pulse Resp BP BP Pulse Ox 07/29/21 03:03 99.9 F H 128 H 17 133/77 99 07/29/21 02:16 97.8 F 77 13 127/66 95 07/29/21 00:18 70 16 148/88 97 07/28/21 23:09 98.8 F 84 20 149/87 96 Intake and Output 07/28/21 07/28/21 07/29/21 14:59 22:59 06:59 Other: Weight 79.095 kg Constitutional: No acute distress, sleeping easily arousable Eyes: Anicteric sclerae, injected conjunctiva, Pupils equal round reactive to light ENMT: NC/AT Oropharynx clear, no erythema, or exudates Neck: Supple, no masses, or JVD No carotid bruits No thyromegaly Lungs: Clear to auscultation Clear to percussion Normal respiratory effort, no accessory muscle use Cardiovascular: Heart tachycardia No murmurs, gallops, or rubs No peripheral edema Abdominal: Soft Nontender, no guarding, rebound or rigidity Abdomen moving with respiration Normoactive bowel sounds No hepatomegaly, No splenomegaly No palpable mass No abdominal wall hernia noted Skin: echymosis over the medial aspect of proximal forearm site of meth injection, no erythema no swelling, soft to the touch. hands with dirty nail beds, otherwise Normal temperature, tone, texture, turgor No induration No subcutaneous nodules No rash, lesions No ulcers Extremities: No digital cyanosis No clubbing Pedal pulses intact and symmetrical Radial pulses intact and symmetrical No calf tenderness Psychiatric: sleepy but easily arousable , not engaged with interview Neuro moving all four extremities , good strength throughout , no focal sensory deficit Lymphatics: no palpable cervical or supraclavicular , or inguinal lymph nodes Cranial Nerve Examination - Cranial Nerves Cranial Nerve II- Optic: Intact Cranial Nerve III- Oculomotor: Intact Cranial Nerve IV- Trochlear: Intact Cranial Nerve V- Trigeminal: Intact Cranial Nerve - Abducens: Intact Cranial Nerve VII- Facial: Intact Cranial Nerve VIII- Auditory: Intact Cranial Nerve IX- Glossopharyngeal: Intact Cranial Nerve X- Vagus: Intact Cranial Nerve XI- Accessory: Intact Cranial Nerve XII- Hypoglossal: Intact Assessment and Plan Assessment: acute psychosis , suicidal ideation management per psych tachycardia , and IV drug use rule out infectious process check blood cultures check CBC follow up blood work symptomatic control of fever and body aches with tylenol and motrin 1 L bolus normal saline continue to monitor off antibiotics covid negative Thank you for allowing us to participate in the care of this patient. We will follow peripherally. Do not hesitate to contact us with questions. Someone can be reached from the [facility] hospitalist group at all hours of the day at [phone].
[2021-07-29 04:30] LABS: Basophils % (A) 0 %; Eosinophils # (A) 0.1 k/uL (0-0.7); Eosinophils % (A) 1 %; HCT 41.7 % (39.0-53.0); HGB 14.2 gm/dL (13.0-17.5); Lymphocytes # (A) 1.2 k/uL (1.0-4.8); Lymphocytes % (A) 9 %; MCH 29.3 pg (25.0-35.0); MCHC 34.1 g/dL (31.0-37.0); MCV 85.8 fL (80.0-100.0); Mean Platelet Volume 7.4; Monocytes # (A) 0.9 k/uL (0-1.0); Monocytes % (A) 6 %; Neutrophils # (A) 11.2 k/uL (1.3-7.7); Neutrophils % (A) 83 %; Platelet Count 178 k/uL (150-450); RBC 4.86 m/uL (4.30-5.90); RDW 12.8 % (11.5-15.5); WBC 13.6 k/uL (3.8-10.6)
[2021-07-29 05:03] VITALS: BP 114/55; PULSE 120; RESP 14; TEMP 99.7
[2021-07-29 05:09] LABS: ALT 52 U/L (4-49); AST 46 U/L (17-59); African American GFR (CKD) >90 (>60 ml/min/1.73 sqM); Alkaline Phosphatase 112 U/L (38-126); Anion Gap 10 mmol/L; Blood Urea Nitrogen 11 mg/dL (9-20); Calcium 9.4 mg/dL (8.4-10.2); Carbon Dioxide 21 mmol/L (22-30); Chloride 104 mmol/L (98-107); Glucose 122 mg/dL (74-99); Non-African American GFR(CKD) >90 (>60 ml/min/1.73 sqM); Potassium 3.5 mmol/L (3.5-5.1); Sodium 135 mmol/L (137-145); Total Bilirubin 0.7 mg/dL (0.2-1.3); Total Protein 7.3 g/dL (6.3-8.2)
== END 2021-07-29 05:12 | disposition home or self-care (01) | DRG 885 ==
LOC: EC 22:53 → 3MHU 07-29 01:50
PROVIDERS: ADMIT Psychiatry & Neurology Psychiatry; ATTEND Psychiatry & Neurology Psychiatry
DX: F33.3 Major depressive disorder, recurrent, severe with psychotic symptoms (principal); R45.851 Suicidal ideations; T43.621A Poisoning by amphetamines, accidental (unintentional), initial encounter; R50.2 Drug induced fever; Z20.822 Contact with and (suspected) exposure to COVID-19; J45.909 Unspecified asthma, uncomplicated; F17.200 Nicotine dependence, unspecified, uncomplicated; Z87.81 Personal history of (healed) traumatic fracture; Z88.1 Allergy status to other antibiotic agents; Z88.5 Allergy status to narcotic agent
CPT/HCPCS: 80053; 82075; 83036; 84443; 85025; 87040; 87635; 99285

== ENCOUNTER 2021-07-29 05:14 | Inpatient (IN) | payer OTHER ==
[2021-07-29] MEDS ORDERED: NALOXONE 0.4 MG/ML 1 ML VIAL IV PRN (05:19)
[2021-07-29] MEDS ORDERED: ONDANSETRON 4 MG/2 ML VIAL IVP PRN (05:20)
[2021-07-29] MEDS ORDERED: LORazepam 2 MG/ML INJ IV PRN (05:20)
[2021-07-29] MEDS ORDERED: IBUPROFEN 400 MG TAB PO PRN (05:20)
[2021-07-29] MEDS ORDERED: ACETAMINOPHEN TAB 325 MG TAB PO PRN (05:20)
[2021-07-29] MEDS ORDERED: VANCOMYCIN IV PER PHARMACY 1 EACH MISC MISCELLANE PRN (05:23)
[2021-07-29] MEDS ORDERED: SODIUM CHLORIDE 0.9% 1,000 ML IV ONE (05:23)
--- NOTE | 2021-07-29 05:25 | P.HPIM ---
History of Present Illness H&P Date: 07/29/21 Chief Complaint: fever, tachycardia 25 year old male with substance abuse he comes in today petitioned for evaluation due to psychosis and suicidal ideation . patient initially was admitted to the mental health unit patient admits to actively using meth, he is complaining of generalized body aches and fevers, he is afraid that he has an infection from IVDA. he denies sharing needles. patient otherwise gives limited history as he is sleepy and not fully engaged with the interview. denies URI or GI symptoms denies rashes or urinary changes blood work pending patient became tachycardic on the MHU, I ordered 1 L bolus normal saline, and to monitor his vital signs and get blood culture done and blood work then he spiked a fever 102.9 , upon which I decided to transfer patient to the medical floor for close monitoring and to rule out sepsis 2/2 bactremia , oth erwise this could be reactive to meth abuse and withdrawal Review of Systems ROS unobtainable: due to mental status Review of Systems ROS unobtainable: due to mental status Past Medical History Past Medical History: Asthma Additional Past Medical History / Comment(s): C7 fx in 2013 History of Any Multi-Drug Resistant Organisms: None Reported Past Surgical History: No Surgical Hx Reported Past Psychological History: No Psychological Hx Reported Smoking Status: Current every day smoker Past Alcohol Use History: None Reported Past Drug Use History: Methamphetamine - Past Family History family Family Medical History: Unable to Obtain Medications and Allergies Allergies Allergy/AdvReac Type Severity Reaction Status Date / Time codeine Allergy Hallucinati Verified 12/05/20 20:06 ons amoxicillin [Amoxicillin] AdvReac Rash/Hives Verified 12/05/20 20:06 Physical Exam temp 102.9 HR 128 bpm Constitutional: No acute distress, sleeping easily arousable Eyes: Anicteric sclerae, injected conjunctiva, Pupils equal round reactive to light ENMT: NC/AT Oropharynx clear, no erythema, or exudates Neck: Supple, no masses, or JVD No carotid bruits No thyromegaly Lungs: Clear to auscultation Clear to percussion Normal respiratory effort, no accessory muscle use Cardiovascular: Heart tachycardia No murmurs, gallops, or rubs No peripheral edema Abdominal: Soft Nontender, no guarding, rebound or rigidity Abdomen moving with respiration Normoactive bowel sounds No hepatomegaly, No splenomegaly No palpable mass No abdominal wall hernia noted Skin: Bruising over the medial aspect of proximal forearm site of meth injection, no erythema no swelling, soft to the touch. hands with dirty nail beds, otherwise Normal temperature, tone, texture, turgor No induration No subcutaneous nodules No rash, lesions No ulcers Extremities: No digital cyanosis No clubbing Pedal pulses intact and symmetrical Radial pulses intact and symmetrical No calf tenderness Psychiatric: sleepy but easily arousable , not engaged with interview Neuro moving all four extremities , good strength throughout , no focal s ensory deficit Lymphatics: no palpable cervical or supraclavicular , or inguinal lymph nodes Assessment and Plan Assessment: Assessment and Plan rule out sepsis (tachy , high grade fever, leukocytosis ) 2/2 to bactremia , vs reactive secondary to drug abuse with meth otherwise patient denies URI symptoms, urinary changes or bowel changes , he reports pain at site of injection right forearm. follow up cultures, and blood work will initiate antibiotics upon transfer ( vanco ) and IVF fluid patient given 1 L bolus on mental health unit continue with normal saline 2nd 1 L bolus then 130 cc per hour tylenol for fever motrin for pain cardiac surgeon (tachycardia) check vital signs Covid negative acute psychosis , suicidal ideation management per psych bed side product safety technical assistant DVT PPX lovenox full code anticipated length of stay > 2 midnights
[2021-07-29] MEDS ORDERED: VANCOMYCIN 1,500 MG in SODIUM CHLORIDE 0.9% 250 ML IVPB ONE (05:45)
[2021-07-29] MEDS: SODIUM CHLORIDE 0.9% 1,000 ML IV SCH ×3 (07:31→20:00)
[2021-07-29] MEDS: ENOXAPARIN 40 MG/0.4 ML SYRINGE SQ SCH (07:31)
[2021-07-29 11:27] LABS: ALT 48 U/L (4-49); AST 38 U/L (17-59); African American GFR (CKD) >90 (>60 ml/min/1.73 sqM); Albumin 3.2 g/dL (3.5-5.0); Albumin/Globulin Ratio 1.1; Alkaline Phosphatase 97 U/L (38-126); Anion Gap 7 mmol/L; Blood Urea Nitrogen 11 mg/dL (9-20); Calcium 8.8 mg/dL (8.4-10.2); Carbon Dioxide 21 mmol/L (22-30); Chloride 110 mmol/L (98-107); Globulin 2.9 g/dL; Glucose 105 mg/dL (74-99); Non-African American GFR(CKD) >90 (>60 ml/min/1.73 sqM); Potassium 3.7 mmol/L (3.5-5.1); Sodium 138 mmol/L (137-145); Total Bilirubin 0.4 mg/dL (0.2-1.3); Total Protein 6.1 g/dL (6.3-8.2)
[2021-07-29 12:15] LABS: HCT 41.5 % (39.0-53.0); HGB 13.7 gm/dL (13.0-17.5); MCH 29.1 pg (25.0-35.0); MCV 88.1 fL (80.0-100.0); Mean Platelet Volume 7.2; Platelet Count 145 k/uL (150-450); RBC 4.71 m/uL (4.30-5.90); RDW 13.1 % (11.5-15.5); WBC 10.2 k/uL (3.8-10.6)
--- NOTE | 2021-07-29 14:01 | P.CN ---
Psychiatric Consult - . Consult date: 07/29/21 Consult:: 07/29/21 14:00 IDENTIFYING DATA: This patient is a single, unemployed, 25-year-old male with a significant history of methamphetamine abuse who presented to the emergenct department under petition and certification for suicidal HISTORY OF PRESENT ILLNESS: The patient presented to the hospital on 07/29/2021 brought in by police under petition and cert for suicidal ideation. As per EPS report, the patient verbalized threats of wanting to kill himself. His girlfriend expressed concern and his mother notified EMS services. The patient was also noted by family to attempt to choke himself with a rope around his neck. He was subsequently admitted to the psychiatric unit however was noted to be tachycardic with a fever of 102.9 and was subsequently transferred to the medical floor for evaluation and management of sepsis given his history of IV drug abuse. Upon evaluation on the medical floor, the patient denies any suicidal or homicidal ideation, intention, and/or plan. He reports he has not been on any medication for the last 6 months for multiple reasons, including a lack of consistency with the medication due to intermediate, and just general improvement in regards to his mental health. He does not recall ever verbalizing suicidal threats. He states he has plenty to live for, especially for his children. He does not report any significant symptoms of depression at this time. He reports no auditory or visual hallucinations. He reports no paranoia or other delusions. He states he is willing to come into the psychiatric unit to be restarted on medications if necessary but would like to see his children as soon as possible. PAST PSYCHIATRIC HISTORY: Patient has a a history of depression and methamphetamine abuse. He has had previous trials of seroquel, prozac, and risperdal. He has had 2 psychiatric hospitalizations on 3 W. in October and November 2020. He follows with [facility] but is trying to transfer his care to [facility]. Patient denies any history of suicide attempts in the past. PAST MEDICAL HISTORY: Past Medical History: Asthma Additional Past Medical History / Comment(s): C7 fx in 2013 History of Any Multi-Drug Resistant Organisms: None Reported Past Surgical History: No Surgical Hx Reported Past Psychological History: No Psychological Hx Reported Smoking Status: Current every day smoker Past Alcohol Use History: None Reported Past Drug Use History: Methamphetamine ALLERGIES: Amoxicillin, codeine CHEMICAL DEPENDENCY HISTORY: The patient reports that he relapsed into methamphetamine use. He reports almost daily use of methamphetamines. He also reports daily tobacco use. Occasional marijuana use. FAMILY PSYCHIATRIC/SUBSTANCE USE HISTORY: The patient reported the past that both his parents are alcoholic. SOCIAL HISTORY: Patient was born in [place] and raised in [place]. He has been with his girlfriend Elsa for at least 4-5 years. They have a son together. His mother and father are . He is currently unemployed. He has ninth grade education. He has a daughter from a previous relationship. MENTAL STATUS EXAM: General Appearance: Patient appears to be stated age is alert, pleasant, and cooperative. Patient appears to have fair hygiene and grooming wearing hospital gown with fair eye contact. The patient has numerous tattoos. Behavior: Patient is calmly lying in bed without any agitated behavior. Eye contact is appropriate. Speech: Patient's speech is fluent and nonpressured. Mood/Affect: Patient reports their mood is "doing fine", affect is congruent, mildly irritable Suicidality/Homicidality: Patient denies having any suicidal or homicidal ideation intent or plan. Perceptions: Patient denies any visual hallucinations and denies any auditory hallucinations Though content/process: There is no evidence of any delusional thought content and thought process is linear and goal-directed. Memory and concentration: AOX3, grossly intact for the purposes of this session. Can spell "WORLD" backwards Judgment and insight: mildly improving IMPRESSIONS: Major depressive disorder, recurrent - suspect substance induced depressive disorder Methamphetamine abuse Nicotine dependence PLAN: -At this time patient DOES meet criteria for inpatient psychiatric admission. The patient wishes to sign himself voluntarily to the psychiatric unit. -Should the patient refused to come to the psychiatric unit, the patient will require a petition and certificate. Review of the previous petition shows that it was incorrectly filled out. The patient would require new petition, in particular from a family member such as his mother or his girlfriend were first witnesses to the events that warranted this hospitalization. -Would recommend the following medication changes/additions: We will start Seroquel 50 mg at bedtime stabilization -We will discontinue one-to-one sitter for now. Patient states that he would not harm himself in the hospital and will stay if necessary. -Cannot leave AMA at this time. Patient will need a petition and certification if attempting to leave AMA. -Will continue to follow along -When medically stable, patient is eligible for transfer to a [facility] bed when available. 07/29/21 14:00
--- NOTE | 2021-07-29 14:24 | P.PN ---
<Castillo Poole - Last Filed: 07/29/21 14:51> Subjective Progress Note Date: 07/29/21 Hospital course: Patient is a 25-year-old male with a past medical of substance abuse. Patient was initially admitted to the mental health unit for psychosis and suicidal ideations report complaints of generalized body aches and fever and concerns that he may have developed an infection from IVDA with methamphetamines. Patient was reportedly found to have an elevated temp of 102.9F and transferred to inpatient admission under our services to rule out sepsis secondary to fever of unclear origin. Psychiatry following. Patient was seen and evaluated at the bedside this morning. Sitter remained at bedside maintaining safety with continuous suicidal precautions. Patient was resting comfortably and was coop erative upon awakening. Patient reported generalized body aches and pains but denied having any abscess, redness, or pain at any previous injection site. Patient has been afebrile since transfer to inpatient admission. Labs reviewed with WBC count of 10.2 and elevated CRP of 5.0. Influenza A, B, and Covid PCRs are all negative. Blood cultures and urinalysis ordered at this time. Physical exam: Vital signs reviewed and stable. General: Nontoxic, no distress and appears stated age. Derm: Skin warm and dry, normal coloration for ethnicity. Head: Atraumatic, normocephalic and symmetric. Eyes: EOMs intact, no lid lag, and anicteric sclera Mouth: no lip lesions, mucus membranes moist Cardiovascular: regular rate and rhythm with normal S1S2, no murmur, positive posterior tibial pulses bilaterally, and cap refill < 2 seconds. Lungs: Respirations even, regular, and unlabored on room air. Lungs CTA bilaterally, no rhonchi, no rales, no wheezing, and no accessory muscle usage. Abdominal: soft, nontender to palpation, no guarding, no appreciable organomegaly Ext: ROM intact. No gross muscle atrophy, no edema, no contractures Neuro: Speech clear, face symmetrical and CN II-XII grossly intact with no noted focal neuro deficits Psych: Alert and oriented to person, place, time, and situation. Appropriate and pleasant affect. Assessment and Plan of Care: Fever of unclear origin with Tachycardia and reports of generalized body aches -Possibly secondary to IVDA with methamphetamine use versus acute infection and we will rule out sepsis. -Influenza A and B and Covid PCR is negative. -Blood cultures -Symptomatic care and pain management -Telemetry monitoring with close monitoring of vital signs. -Patient received IV fluid hydration. -Patient on prophylactic antibiotics with vancomycin until infection can be ruled out. -Pro-calcitonin -Follow up on urinalysis Acute psychosis Suicidal ideation IVDA drug abuse with methamphetamines -Psychiatry following, appreciate further recommendations. -Suicide precautions to remain in place with sitter at bedside to remain in safety. -Plan is for patient to be medically cleared and transferred back to inpatient psychiatric unit. CODE STATUS: Full code DVT prophylaxis: Lovenox Discussed with: Patient, RN, and patient sitter Anticipated discharge date: Clinical course to determine, likely 1-[address]: Patient to be discharged back to inpatient psychiatric unit A total of 40 minutes was spent on the care of this complex patient more than 50% of the time was spent in counseling and care coordination. Objective - Vital Signs Vital signs: Vital Signs Temp 97.9 F 07/29/21 07:58 Pulse 87 07/29/21 07:58 Resp 17 07/29/21 07:58 BP 121/65 07/29/21 07:58 Pulse Ox 97 07/29/21 07:58 Intake & Output 07/28/21 07/29/21 07/29/21 18:59 06:59 18:59 Weight 91 kg - Labs CBC & Chem 7: 07/29/21 11:01 07/29/21 11:01 Labs: Abnormal Lab Results - Last 24 Hours (Table) 07/29/21 07/29/21 Range/Units 11:01 11:01 Plt Count 145 L (150-450) k/uL Chloride 110 H (98-107) mmol/L Carbon Dioxide 21 L (22-30) mmol/L Glucose 105 H (74-99) mg/dL C-Reactive Protein 5.0 H (<1.0) mg/dL Total Protein 6.1 L (6.3-8.2) g/dL Albumin 3.2 L (3.5-5.0) g/dL <Nayeli Arreguin - Last Filed: 07/30/21 10:45> Subjective agree with note and plan Objective - Vital Signs Vital signs: Vital Signs Temp 97.7 F 07/30/21 05:23 Pulse 70 07/30/21 05:23 Resp 16 07/30/21 05:23 BP 113/71 07/30/21 05:23 Pulse Ox 100 07/30/21 05:23 Intake & Output 07/29/21 07/30/21 07/30/21 18:59 06:59 18:59 Other: # Voids 3 - Labs CBC & Chem 7: 07/29/21 11:01 07/29/21 11:01 Labs: Abnormal Lab Results - Last 24 Hours (Table) 07/29/21 07/29/21 07/29/21 Range/Units 11:01 11:01 Unknown Plt Count 145 L (150-450) k/uL Chloride 110 H (98-107) mmol/L Carbon Dioxide 21 L (22-30) mmol/L Glucose 105 H (74-99) mg/dL C-Reactive Protein 5.0 H (<1.0) mg/dL Total Protein 6.1 L (6.3-8.2) g/dL Albumin 3.2 L (3.5-5.0) g/dL Urine Protein Trace H (Negative) Urine Blood Large H (Negative) Ur Leukocyte Esterase Large H (Negative) Urine RBC >182 H (0-5) /hpf Urine WBC >182 H (0-5) /hpf Urine Bacteria Rare H (None) /hpf Urine Mucus Few H (None) /hpf
[2021-07-29] MEDS: VANCOMYCIN 1,500 MG in SODIUM CHLORIDE 0.9% 250 ML IVPB SCH ×2 (15:36→23:19)
[2021-07-29 17:03] LABS: Appearance,Urine Cloudy (Clear); Bacteria,Urine Rare /hpf; Bilirubin,Urine Negative (Negative); Blood,Urine Large (Negative); Color,Urine Yellow; Glucose,Urine (UA) Negative (Negative); Ketones,Urine Negative (Negative); Leukocyte Esterase,Urine Large (Negative); Mucus,Urine Few /hpf; Nitrite,Urine Negative (Negative); PH, Urine 5.5 (5.0-8.0); Protein,Urine Trace (Negative); RBC,Urine >182 /hpf (0-5); Specific Gravity,Urine 1.024 (1.001-1.035); Squamous Epithelial Cell,Urine 3 /hpf (0-4); Urobilinogen,Urine <2.0 mg/dL (<2.0); WBC,Urine >182 /hpf (0-5)
[2021-07-29] MEDS: QUEtiapine 50 MG TAB PO SCH (20:00)
[2021-07-30] MEDS: SODIUM CHLORIDE 0.9% 1,000 ML IV SCH ×3 (06:14→22:12)
[2021-07-30] MEDS: VANCOMYCIN 1,500 MG in SODIUM CHLORIDE 0.9% 250 ML IVPB SCH ×3 (07:19→22:12)
[2021-07-30] MEDS: ENOXAPARIN 40 MG/0.4 ML SYRINGE SQ SCH (09:13)
[2021-07-30 12:34] LABS: African American GFR (CKD) >90 (>60 ml/min/1.73 sqM); Non-African American GFR(CKD) >90 (>60 ml/min/1.73 sqM)
--- NOTE | 2021-07-30 12:42 | P.PN ---
Subjective Progress Note Date: 07/30/21 No new complaints. Resting comfortably on my exam. Wakes up for interview, does not endorse any complaints at this time. Objective - Vital Signs Vital signs: Vital Signs Temp 97.7 F 07/30/21 11:33 Pulse 86 07/30/21 11:33 Resp 18 07/30/21 11:33 BP 115/61 07/30/21 11:33 Pulse Ox 100 07/30/21 05:23 Intake & Output 07/29/21 07/30/21 07/30/21 18:59 06:59 18:59 Other: # Voids 3 - Exam Gen: awake, alert HEENT: normocephalic, atraumatic, good hearing acuity, moist mucous membranes Resp: good air exchange, breathing comfortably with no accessory muscle use CVS: good distal perfusion x 4, GI: soft, NTTP, ND : no SPT, no CVAT, tierney catheter not present MSK: no pitting edema, no clubbing Neuro: non-focal, moving all extremities Psych: cooperative, euthymic mood - Labs CBC & Chem 7: 07/29/21 11:01 07/30/21 12:02 Labs: Abnormal Lab Results - Last 24 Hours (Table) 07/29/21 Range/Units Unknown Urine Protein Trace H (Negative) Urine Blood Large H (Negative) Ur Leukocyte Esterase Large H (Negative) Urine RBC >182 H (0-5) /hpf Urine WBC >182 H (0-5) /hpf Urine Bacteria Rare H (None) /hpf Urine Mucus Few H (None) /hpf Assessment and Plan Assessment: Fever of unclear origin with Tachycardia and reports of generalized body aches -Possibly secondary to IVDA with methamphetamine use versus acute infection and we will rule out sepsis. -Influenza A and B and Covid PCR is negative. -Blood cultures not drawn prior to abx -Symptomatic care and pain management -Telemetry monitoring with close monitoring of vital signs. -Patient received IV fluid hydration. -Patient on prophylactic antibiotics with vancomycin until infection can be ruled out. -Pro-calcitonin -Follow up on repeat urinalysis Acute psychosis Suicidal ideation IVDA drug abuse with methamphetamines -Psychiatry following, appreciate further recommendations. -Suicide precautions to remain in place with sitter at bedside to remain in safety. -Plan is for patient to be medically cleared and transferred back to inpatient psychiatric unit. CODE STATUS: Full code DVT prophylaxis: Lovenox Discussed with: Patient, RN, and patient sitter Anticipated discharge date: Clinical course to determine, likely 1-[address]: Patient to be discharged back to inpatient psychiatric unit
[2021-07-30] MEDS ORDERED: VANCOMYCIN TROUGH DUE 1 EACH MISC MISCELLANE ONE (13:00)
[2021-07-30 17:31] LABS: Appearance,Urine Clear (Clear); Bacteria,Urine Rare /hpf; Bilirubin,Urine Negative (Negative); Blood,Urine Negative (Negative); Color,Urine Light Yellow; Glucose,Urine (UA) Negative (Negative); Ketones,Urine Negative (Negative); Leukocyte Esterase,Urine Small (Negative); Mucus,Urine Rare /hpf; Nitrite,Urine Negative (Negative); PH, Urine 6.5 (5.0-8.0); Protein,Urine Negative (Negative); RBC,Urine <1 /hpf (0-5); Specific Gravity,Urine 1.005 (1.001-1.035); Squamous Epithelial Cell,Urine <1 /hpf (0-4); Urobilinogen,Urine <2.0 mg/dL (<2.0); WBC,Urine 7 /hpf (0-5)
[2021-07-30] MEDS: QUEtiapine 50 MG TAB PO SCH (22:11)
[2021-07-31] MEDS: SODIUM CHLORIDE 0.9% 1,000 ML IV SCH ×4 (00:08→21:39)
[2021-07-31] MEDS: VANCOMYCIN 1,500 MG in SODIUM CHLORIDE 0.9% 250 ML IVPB SCH (05:53)
[2021-07-31 07:20] LABS: African American GFR (CKD) >90 (>60 ml/min/1.73 sqM); Anion Gap 7 mmol/L; Blood Urea Nitrogen 12 mg/dL (9-20); Calcium 9.3 mg/dL (8.4-10.2); Carbon Dioxide 24 mmol/L (22-30); Chloride 107 mmol/L (98-107); Glucose 94 mg/dL (74-99); Non-African American GFR(CKD) >90 (>60 ml/min/1.73 sqM); Potassium 4.4 mmol/L (3.5-5.1); Sodium 138 mmol/L (137-145)
[2021-07-31] MEDS: ENOXAPARIN 40 MG/0.4 ML SYRINGE SQ SCH (10:25)
--- NOTE | 2021-07-31 12:25 | P.PN ---
Subjective Pt doing very well today. No further fevers. No complaints of dysuria, hesitancy, or increased frequency. Objective - Vital Signs Vital signs: Vital Signs Temp 97.6 F 07/31/21 11:54 Pulse 99 07/31/21 11:54 Resp 20 07/31/21 11:54 BP 130/72 07/31/21 11:54 Pulse Ox 100 07/31/21 11:54 Intake & Output 07/30/21 07/31/21 07/31/21 18:59 06:59 18:59 Intake Total 2049 Balance 2049 Intake: Intake, IV Titration 2049 Amount Sodium Chloride 0.9% 1, 1800 000 ml @ 150 mls/hr IV . Q6H40M TIFFANY Rx#:[id number] Vancomycin 1,500 mg In 250 Sodium Chloride 0.9% 250 ml @ 125 mls/hr IVPB Q8H TIFFANY Rx#:[id number] Other: # Voids 3 - Exam Gen: awake, alert HEENT: normocephalic, atraumatic, good hearing acuity, moist mucous membranes Resp: good air exchange, breathing comfortably with no accessory muscle use CVS: good distal perfusion x 4, GI: soft, NTTP, ND : no SPT, no CVAT, tierney catheter not present MSK: no pitting edema, no clubbing Neuro: non-focal, moving all extremities Psych: cooperative, euthymic mood - Labs CBC & Chem 7: 07/29/21 11:01 07/31/21 06:31 Labs: Abnormal Lab Results - Last 24 Hours (Table) 07/30/21 Range/Units 17:00 Ur Leukocyte Esterase Small H (Negative) Urine WBC 7 H (0-5) /hpf Urine Bacteria Rare H (None) /hpf Urine Mucus Rare H (None) /hpf Microbiology - Last 24 Hours (Table) 07/30/21 17:00 Urine Culture - Preliminary Urine,Clean Catch Assessment and Plan Assessment: Fever likely secondary to methamphetamine use -Possibly secondary to IVDA with methamphetamine use versus acute infection and we will rule out sepsis. -Influenza A and B and Covid PCR is negative. -Blood cultures not drawn prior to abx -Symptomatic care and pain management -Telemetry monitoring with close monitoring of vital signs. -Patient received IV fluid hydration. -Patient on prophylactic antibiotics with vancomycin until infection can be ruled out. -Pro-calcitonin -Follow up on repeat urinalysis was not suspicious for UTI -UCx is pending Acute psychosis Suicidal ideation IVDA drug abuse with methamphetamines -Psychiatry following, appreciate further recommendations. -Suicide precautions to remain in place with sitter at bedside to remain in safety. -Patient is medically cleared for transfer back to [facility] pending bed availability. EPS to re-evaluate the patient tomorrow AM. CODE STATUS: Full code DVT prophylaxis: Lovenox Discussed with: Patient, RN, and patient sitter
[2021-07-31] MEDS: QUEtiapine 50 MG TAB PO SCH (21:35)
[2021-08-01] MEDS: SODIUM CHLORIDE 0.9% 1,000 ML IV SCH ×2 (01:12→10:25)
[2021-08-01] MEDS ORDERED: VANCOMYCIN TROUGH DUE 1 EACH MISC MISCELLANE ONE (05:00)
[2021-08-01 07:16] LABS: African American GFR (CKD) >90 (>60 ml/min/1.73 sqM); Anion Gap 6 mmol/L; Blood Urea Nitrogen 10 mg/dL (9-20); Calcium 8.9 mg/dL (8.4-10.2); Carbon Dioxide 24 mmol/L (22-30); Chloride 108 mmol/L (98-107); Glucose 88 mg/dL (74-99); Non-African American GFR(CKD) >90 (>60 ml/min/1.73 sqM); Potassium 4.4 mmol/L (3.5-5.1); Sodium 138 mmol/L (137-145)
[2021-08-01] MEDS: ENOXAPARIN 40 MG/0.4 ML SYRINGE SQ SCH (08:42)
[2021-08-01 12:30] VITALS: BP 121/72; PULSE 67; RESP 20; TEMP 97.5
--- NOTE | 2021-08-01 12:39 | P.DS ---
Providers Date of admission: 07/29/21 05:18 Expected date of discharge: 08/01/21 Attending physician: Rima Carcamo MD Consults: 07/29/21 05:21 Consult Physician Routine Consulting Provider: Roberto Hobbs Consult Reason/Comments: psychosis Do you want consulting provider notified?: Already Contacted Primary care physician: Stated None Hospital Course: Fever likely secondary to methamphetamine use Patient was admitted with fevers and tachycardia with concern for sepsis versus secondary to meth abuse. Influenza A and B and Covid PCR were negative. Blood cultures not drawn prior to abx. Telemetry monitoring with close monitoring of vital signs did not demonstrate arrhythmic events. Patient on prophylactic antibiotics with vancomycin until infection was ruled out. Pro-calcitonin was not drawn. Initial UA suspicious for UTI, but nothing grew on UCx, and patient was asymptomatic. Follow up on repeat urinalysis was not suspicious for UTI. Infectious causes of fevers were essentially ruled out during this admission. Fevers most likely to methamphetamine use, and patient did not have fevers beyond the first day of admission. Acute psychosis Suicidal ideation IVDA drug abuse with methamphetamines -Psychiatry followed, appreciated their recommendations. Suicide precautions to remained in place with sitter at bedside to remain in safety. Patient is medically cleared for transfer back to [facility]. I spent 35 minutes coordinating this discharge. Assessment: Gen: awake, alert HEENT: normocephalic, atraumatic, good hearing acuity, moist mucous membranes Resp: good air exchange, breathing comfortably with no accessory muscle use CVS: good distal perfusion x 4, GI: soft, NTTP, ND : no SPT, no CVAT, tierney catheter not present MSK: no pitting edema, no clubbing Neuro: non-focal, moving all extremities Psych: cooperative, euthymic mood Patient Condition at Discharge: Good Plan - Discharge Summary Discharge Rx Participant: No New Discharge Prescriptions: New QUEtiapine [SEROquel] 50 mg PO HS tab Discharge Medication List QUEtiapine [SEROquel] 50 mg PO HS tab 08/01/21 [Rx] Discharge Disposition: TRANSFER TO PSYCH HOSP/UNIT
--- NOTE | 2021-08-01 13:46 | P.PN ---
Progress Note - Text Progress Note Date: 08/01/21 Interval History: Patient was seen resting in bed comfortably and was directable and agreeable to speak with writer technical publications in the his room., Patient is not endorsing any suicidal or homicidal ideation, intention, and/or plan. He has been calm and cooperative with staff. He has been adherent with his medications and is not endorsing any significant side effects at this time. He reports no auditory or visual hallucinations. He reports no paranoia or delusions. Patient was counseled at great length on avoiding all substances, especially methamphetamines as it causes him significant dysfunction, depression, and effects his relationships with his family including his girlfriend and their children. The patient does express a desire to quit methamphetamines however is not wishing to pursue rehabilitation at this time. He is not reporting any other significant symptoms of depression at this time. He reports no change in appetite, difficulty with sleep, hopelessness, or helplessness. Mental Status Exam: General Appearance: Patient appears to be stated age is alert, directable, and cooperative. Behavior: Patient is calmly seated without any agitated behavior. Speech: Patient's speech is fluent and nonpressured. Mood/Affect: Mood is improving mildly, affect is congruent and euthymic. Suicidality/Homicidality: Patient denies having any suicidal or homicidal ideation intent or plan. Perceptions: Patient denies any visual hallucinations and denies any auditory hallucinations Though content/process: There is no evidence of any delusional thought content and thought process is linear and goal-directed. Memory and concentration: AOX3, grossly intact for the purposes of this session Judgment and insight: Improving mildly Vital Signs Temp 97.5 F L 08/01/21 12:30 Pulse 67 08/01/21 12:30 Resp 20 08/01/21 12:30 BP 121/72 08/01/21 12:30 Pulse Ox 99 08/01/21 12:30 Intake & Output 07/31/21 08/01/21 08/01/21 18:59 06:59 18:59 Intake Total 1800 Balance 1800 Intake: Intake, IV Titration 1800 Amount Sodium Chloride 0.9% 1, 1800 000 ml @ 150 mls/hr IV . Q6H40M TIFFANY Rx#:[id number] Other: # Voids 2 3 Laboratory Results - Last 24 Hours 08/01/21 08/01/21 06:01 06:01 Sodium 138 Potassium 4.4 Chloride 108 H Carbon Dioxide 24 Anion Gap 6 BUN 10 Creatinine 0.77 Est GFR (CKD-EPI)AfAm >90 Est GFR (CKD-EPI)NonAf >90 Glucose 88 Calcium 8.9 Vancomycin Trough <5.0 Assessment Major depressive disorder, recurrent - suspect substance induced depressive dis order Methamphetamine abuse Nicotine dependence Plan: -At this time patient DOES NOT meet criteria for inpatient psychiatric admission. The patient has been adherent to medications and has displayed no significant issues regarding his mood. He is also endorsing future orientation is a strong desire to be there for his family, in particular his children. -The patient's primary concern is his heavy substance abuse which contributes to his low mood. However, inpatient psychiatric hospitalization is not replacement for rehabilitation or intensive outpatient treatment for substance use disorde rs. Patient does express understanding. He was encouraged to follow-up in the outpatient setting for substance abuse counseling and treatment. -Would recommend the following medication changes/additions: Continue Seroquel 50 mg at bedtime for mood stabilization. -Discontinue one-to-one sitter -Psychiatry will sign off at this time. Thank you for this consult.
== END 2021-08-01 15:27 | disposition home or self-care (01) | DRG 864 ==
LOC: 4SSUR 05:18 → 5NMEDONC 17:20
PROVIDERS: ADMIT Internal Medicine; ATTEND Internal Medicine
DX: R50.9 Fever, unspecified (principal); F33.9 Major depressive disorder, recurrent, unspecified; R45.851 Suicidal ideations; F23 Brief psychotic disorder; R00.0 Tachycardia, unspecified; F15.10 Other stimulant abuse, uncomplicated; F17.200 Nicotine dependence, unspecified, uncomplicated; Z20.822 Contact with and (suspected) exposure to COVID-19
CPT/HCPCS: 80048; 80053; 80202; 81001; 82565; 85027; 86140; 87086; 87502

== ENCOUNTER 2021-10-10 05:48 | Emergency (ER) | payer OTHER ==
--- NOTE | 2021-10-10 05:53 | ED ---
Overdose HPI - General Stated Complaint: Overdose Time Seen by Provider: 10/10/21 05:49 Source: RN notes reviewed, old records reviewed - History of Present Illness Initial Comments: This is a 25-year-old male DF for evaluation. Patient presents with accidental overdose, heroin. Requiring Narcan. Patient did: Unresponsive currently awake and alert. No other complaints no travel show sick contacts. Denies any other drug or alcohol MD Complaint: accidental overdose -: minutes(s) Intent: suicide attempt How Overdose Was Discovered: called family/friend Context: Intentional Overdose: drug/ETOH problems Context: Accidental Overdose: wanted to get high Treatments Prior to Arrival: none - Related Data Previous Rx's Medication Instructions Recorded QUEtiapine [SEROquel] 50 mg PO HS tab 08/01/21 Allergies Allergy/AdvReac Type Severity Reaction Status Date / Time amoxicillin [Amoxicillin] Allergy Rash/Hives Verified 07/29/21 06:41 codeine Allergy Rash/Hives Verified 07/29/21 06:41 Review of Systems ROS Statement: Those systems with pertinent positive or pertinent negative responses have been documented in the HPI. ROS Other: All systems not noted in ROS Statement are negative. Past Medical History Past Medical History: Asthma Additional Past Medical History / Comment(s): C7 fx in 2013 History of Any Multi-Drug Resistant Organisms: None Reported Past Surgical History: No Surgical Hx Reported Past Anesthesia/Blood Transfusion Reactions: Unable to Obtain Past Psychological History: No Psychological Hx Reported Smoking Status: Current every day smoker Past Alcohol Use History: None Reported Past Drug Use History: Methamphetamine - Past Family History family Family Medical History: Unable to Obtain General Exam General appearance: alert, in no apparent distress Head exam: Present: atraumatic, normocephalic, normal inspection Eye exam: Present: normal appearance, PERRL, EOMI. Absent: scleral icterus, conjunctival injection, periorbital swelling ENT exam: Present: normal exam, mucous membranes moist Neck exam: Present: normal inspection. Absent: tenderness, meningismus, lymphadenopathy Respiratory exam: Present: normal lung sounds bilaterally. Absent: respiratory distress, wheezes, rales, rhonchi, stridor Cardiovascular Exam: Present: regular rate, normal rhythm, normal heart sounds. Absent: systolic murmur, diastolic murmur, rubs, gallop, clicks GI/Abdominal exam: Present: soft, normal bowel sounds. Absent: distended, tenderness, guarding, rebound, rigid Extremities exam: Present: normal inspection, full ROM, normal capillary refill. Absent: tenderness, pedal edema, joint swelling, calf tenderness Back exam: Present: normal inspection Neurological exam: Present: alert, oriented X3, CN II-XII intact Psychiatric exam: Present: normal affect, normal mood Skin exam: Present: warm, dry, intact, normal color. Absent: rash Course Vital Signs 10/10/21 10/10/21 10/10/21 05:51 05:54 06:11 Temperature 97.4 F L 97.4 F L Pulse Rate 87 81 76 Respiratory 18 18 18 Rate Blood Pressure 123/84 123/84 118/83 O2 Sat by Pulse 100 100 100 Oximetry 10/10/21 06:48 Temperature Pulse Rate 77 Respiratory 18 Rate Blood Pressure 134/78 O2 Sat by Pulse 99 Oximetry - Reevaluation(s) Reevaluation #1: 10/10/21 05:54 Medical records reviewed Patient remains awake and alert here in the emergency department Patient informed results and can be discharged home Medical Decision Making - Medical Decision Making 25 male to the emergency department for evaluation of overdose drug overdose and opiate overdose. Patient awake and alert feeling well and can be discharged home - EKG Data -: EKG Interpreted by Me (EKG is sinus at 74 RR 158 QRS 108 QTC 396) Disposition Clinical Impression: Drug overdose, Poisoning by opiates and related narcotics, other Disposition: HOME SELF-CARE Condition: Fair Instructions (If sedation given, give patient instructions): Adult Overdose (ED) Is patient prescribed a controlled substance at d/c from ED?: No Referrals: None,Stated [Primary Care Provider] - 1-2 days
[2021-10-10 05:54] VITALS: RESP 18; TEMP 97.4
[2021-10-10 06:49] VITALS: BP 134/78; PULSE 77
== END 2021-10-10 07:06 | disposition home or self-care (01) ==
LOC: EC 05:48
DX: T40.1X1A Poisoning by heroin, accidental (unintentional), initial encounter (principal); J45.909 Unspecified asthma, uncomplicated; F17.200 Nicotine dependence, unspecified, uncomplicated; Z88.5 Allergy status to narcotic agent
CPT/HCPCS: 93005; 99284

== ENCOUNTER 2022-04-29 03:45 | Observation (INO) | payer OTHER ==
[2022-04-29 05:32] LABS: Amphetamine Screen,Urine Not Detected (NotDetected); Barbiturate Screen,Urine Not Detected (NotDetected); Benzodiazepines Screen,Urine Not Detected (NotDetected); Cocaine Screen,Urine Not Detected (NotDetected); Methadone Screen, Urine Not Detected (NotDetected); Opiate Screen,Urine Not Detected (NotDetected); Oxycodone Screen, Urine Not Detected (NotDetected); Phencyclidine Screen,Urine Not Detected (NotDetected); Tricyclic Antidepressant,Urine Not Detected (NotDetected); Urn Cannabinoid Scrn Not Detected (NotDetected)
[2022-04-29] MEDS ORDERED: IBUPROFEN 400 MG TAB PO PRN (06:23)
[2022-04-29] MEDS ORDERED: MAG HYDROX/AL HYDROX/SIMETH 30 ML CUP PO PRN (06:23)
[2022-04-29] MEDS ORDERED: ACETAMINOPHEN TAB 325 MG TAB PO PRN (06:23)
[2022-04-29] MEDS ORDERED: NALOXONE 0.4 MG/ML 1 ML VIAL IV PRN (06:23)
--- NOTE | 2022-04-29 08:18 | ED ---
Psych HPI - General Chief Complaint: Psychiatric Symptoms Stated Complaint: Mental Health Time Seen by Provider: 04/29/22 04:30 Source: patient Mode of arrival: ambulatory - History of Present Illness Initial Comments: as patient is 26-year-old man who presents to have evaluation for worsening of his depression and now having suicidal ideation. The patient states he has long-standing depression. Things just have become much worse over the past few days into tonight. Patient not currently taking medication. States has been contemplating suicide by a number of methods. MD Complaint: suicidal ideation, feels depressed -: week(s) Associated Psychiatric Symptoms: depression, suicidal ideation History of same: Yes Quality: getting worse Improves With: none Worsens With: none Associated Symptoms: denies other symptoms - Related Data Previous Rx's Medication Instructions Recorded QUEtiapine [SEROquel] 50 mg PO HS tab 08/01/21 Allergies Allergy/AdvReac Type Severity Reaction Status Date / Time amoxicillin [Amoxicillin] Allergy Rash/Hives Verified 07/29/21 06:41 codeine Allergy Rash/Hives Verified 07/29/21 06:41 Review of Systems ROS Statement: Those systems with pertinent positive or pertinent negative responses have been documented in the HPI. ROS Other: All systems not noted in ROS Statement are negative. Constitutional: Denies: fever, chills ENT: Reports: congestion Respiratory: Denies: cough, dyspnea Cardiovascular: Denies: chest pain, palpitations, edema Gastrointestinal: Denies: abdominal pain, nausea, vomiting, diarrhea Genitourinary: Denies: dysuria, hematuria Musculoskeletal: Denies: back pain Skin: Denies: rash Neurological: Denies: headache, weakness Psychiatric: Reports: depression, suicidal thoughts. Denies: auditory hallucinations, visual hallucinations, homicidal thoughts Past Medical History Past Medical History: Asthma Additional Past Medical History / Comment(s): C7 fx in 2014 History of Any Multi-Drug Resistant Organisms: None Reported Past Surgical History: No Surgical Hx Reported Past Anesthesia/Blood Transfusion Reactions: Unable to Obtain Past Psychological History: Depression Smoking Status: Current every day smoker, Vaper Past Alcohol Use History: Occasional Past Drug Use History: Methamphetamine - Past Family History family Family Medical History: Unable to Obtain General Exam Limitations: no limitations General appearance: alert, in no apparent distress Head exam: Present: atraumatic, normocephalic Eye exam: Present: normal appearance. Absent: scleral icterus, conjunctival injection ENT exam: Present: normal oropharynx Neck exam: Present: normal inspection Respiratory exam: Present: normal lung sounds bilaterally. Absent: respiratory distress, wheezes, rales, rhonchi, stridor Cardiovascular Exam: Present: regular rate, normal rhythm, normal heart sounds. Absent: systolic murmur, diastolic murmur, rubs, gallop GI/Abdominal exam: Present: soft. Absent: distended, tenderness, guarding, rebound, rigid, mass Extremities exam: Present: normal inspection, normal capillary refill. Absent: pedal edema, calf tenderness Back exam: Present: normal inspection Neurological exam: Present: alert Psychiatric exam: Present: depressed, suicidal ideation. Absent: agitated, anxious, flat affect, manic, homicidal ideation Skin exam: Present: warm, dry, intact, normal color. Absent: rash Course Vital Signs 04/29/22 04:08 Temperature 98.6 F Pulse Rate 114 H Respiratory 16 Rate Blood Pressure 112/77 O2 Sat by Pulse 96 Oximetry Medical Decision Making - Lab Data Lab Results 04/29/22 04/29/22 Range/Units 05:03 05:50 Urine Opiates Screen Not Detected (NotDetected) Ur Oxycodone Screen Not Detected (NotDetected) Urine Methadone Screen Not Detected (NotDetected) Ur Propoxyphene Screen Not Detected (NotDetected) Ur Barbiturates Screen Not Detected (NotDetected) U Tricyclic Antidepress Not Detected (NotDetected) Ur Phencyclidine Scrn Not Detected (NotDetected) Ur Amphetamines Screen Not Detected (NotDetected) U Methamphetamines Scrn Not Detected (NotDetected) U Benzodiazepines Scrn Not Detected (NotDetected) Urine Cocaine Screen Not Detected (NotDetected) U Marijuana (THC) Screen Not Detected (NotDetected) Coronavirus (PCR) Detected A (Not Detectd) Disposition Clinical Impression: COVID-19, Depression, Suicidal ideation Disposition: ADMITTED IP TO THIS HOSP Condition: Fair Is patient prescribed a controlled substance at d/c from ED?: No
--- NOTE | 2022-04-29 12:12 | P.HPIM ---
History of Present Illness H&P Date: 04/29/22 Chief Complaint: suicidal ideation Patient is a 26-year-old male with history of depression presenting with suicidal ideation and worsening depression. Patient claims that he's been feeling more depressed over the last couple months. He has been having inc reased thoughts of harming himself. He does not have a specific plan. He was driven by his friend to the emergency for further workup. He denies seeing a psychiatrist or being on any medications. He denies any alcohol, smoking, illicit drug use. In the ED, he was slightly tachycardic, afebrile, saturating well on room air. He was incidentally found to be COVID-19 positive. His urinary drug screen was negative. Patient seen and examined at bedside. Pertinent positives and negatives as discussed in HPI, a complete review of systems was performed and all other systems are negative. Vital signs reviewed General: nontoxic, no distress, appears at stated age Derm: warm, dry Head: atraumatic, normocephalic, symmetric Eyes: EOMI, no lid lag, anicteric sclera, pupils equal round reactive to light ENT: Nose and ears atraumatic Neck: No thyromegaly Mouth: no lip lesion, mucus membranes moist Cardiovascular: S1S2 reg, no murmur,no edema Lungs: clear to auscultation bilateral, no rhonchi, no rales, no wheeze, no accessory muscle use Abdominal: soft, nontender to palpation, no guarding, no appreciable organomegaly, normal bowel sounds Ext: no gross muscle atrophy, muscle strength muscle strength 5 out of 5 in all 4 extremities, no contractures Neuro: CN II-XII grossly intact, light touch intact all 4 extremities Psych: Alert, oriented, appropriate affect Assessment/Plan: Major depression Suicidal ideation -Bedside sitter -Suicide precautions -Psychiatry consult Asymptomatic COVID-19 infection -Continue to monitor The patient is admitted with an anticipated less than 2 midnight stay for evaluation of suicidal ideation. CODE STATUS: Full code DVT prophylaxis: SCDs, patient ambulatory Anticipated discharge date: 04/[address]: Home A total of 45 minutes was spent on the care of this complex patient more than 50% of the time was spent in counseling and care coordination. Past Medical History Past Medical History: Asthma Additional Past Medical History / Comment(s): C7 fx in 2014 History of Any Multi-Drug Resistant Organisms: None Reported Past Surgical History: No Surgical Hx Reported Past Anesthesia/Blood Transfusion Reactions: Unable to Obtain Past Psychological History: Depression Smoking Status: Current every day smoker, Vaper Past Alcohol Use History: Occasional Past Drug Use History: Methamphetamine - Past Family History family Family Medical History: Unable to Obtain Medications and Allergies Home Medications Medication Instructions Recorded Confirmed Type QUEtiapine [SEROquel] 50 mg PO HS tab 08/01/21 Rx Allergies Allergy/AdvReac Type Severity Reaction Status Date / Time amoxicillin [Amoxicillin] Allergy Rash/Hives Verified 07/29/21 06:41 codeine Allergy Rash/Hives Verified 07/29/21 06:41 Physical Exam Vitals: Vital Signs Temp Pulse Resp BP Pulse Ox 04/29/22 04:08 98.6 F 114 H 16 112/77 96 Intake and Output 04/28/22 04/29/22 04/29/22 22:59 06:59 14:59 Other: Weight 102.058 kg Results Labs: Abnormal Lab Results - Last 24 Hours (Table) 04/29/22 Range/Units 05:50 Coronavirus (PCR) Detected A (Not Detectd)
--- NOTE | 2022-04-29 17:51 | P.CN ---
Psychiatric Consult - . Consult date: 04/29/22 Consult:: 04/29/22 17:36 IDENTIFYING DATA: This patient is a 26-year-old male REASON FOR REFERRAL: Psychiatry was consulted for depression HISTORY OF PRESENT ILLNESS: The patient presented to the ED for COVID-19. Patient states that he has been feeling "depressed ". He reports that he has been depressed for a long time but given that he has no longer been using methamphetamines, the depression has worsened over the past 7 months. He states that he has been sleeping 4-5 hours since February and has been having low energy and endorses feeling worthless. He endorses suicidal ideation with plan to relapse on fentanyl and methamphetamine. He also states that he has been having racing thoughts about past negative events that have occurred in his life. He is ruminating on breakup with an ex- girlfriend. At this time patient denies any homical ideations, intent or plan. Patient denies any auditory, visual hallucinations and denies any paranoia or delusions. PAST PSYCHIATRIC HISTORY: Patient has a a history of depression. He reports being on Prozac but not taking it consistently or for a long period of time. He states that he had been on Lexapro 10 mg but he did not find it to be helpful. Risperdal per chart review. He endorses a history of psychiatric hospitalizations at [facility] and at [facility]. He reports history of suicide attempts - overdosing on fentanyl; tying a wire around his neck PAST MEDICAL HISTORY: Asthma ALLERGIES: as per EMR. CHEMICAL DEPENDENCY HISTORY: Methamphetamine use for the past 3 yearsused to use 3 g per day but stopped in September 2021 after overdosing on fentanyl and methamphetamine. He reports also vaping but denies other substance use including alcohol and cannabis use. He reports having been to [place] in the past FAMILY PSYCHIATRIC/SUBSTANCE USE HISTORY: Mother and fatheralcohol use. He denies suicide attempts in the family SOCIAL HISTORY: He reports being raised by his parents and having 1 sister and 3 brothers. He currently lives with his mother. His mother and father when he was 17. The patient denies any significant history of trauma. He is currently unemployed. He has a ninth grade education. He was never . He has 2 children. MENTAL STATUS EXAM: General Appearance: Patient appears to be tattoos, poor hygiene and grooming, stated age is alert, vague. Patient appears to have poor hygiene and grooming. Behavior: Patient is laying down without any agitated behavior. Speech: Patient's speech is fluent and nonpressured. [place] Mood/Affect: Patient reports their mood is "depressed", affect is congruent Suicidality/Homicidality: Patient denies having any homicidal ideation intent or plan. Endorses suicidal ideations with plan Perceptions: Patient denies any visual hallucinations and denies any auditory hallucinations Though content/process: Patient is concrete, poverty of content. Memory and concentration: AOX3, grossly intact for the purposes of this session. Can spell "WORLD" backwards Judgment and insight: Fair IMPRESSIONS: Major depressive disorder, recurrent, severe without psychotic features Methamphetamine abuse Cannabis use disorder Nicotine dependence PLAN: -At this time patient DOES meet criteria for inpatient psychiatric admission. -Continue 1:1 sitter for safety -Cannot leave AMA at this time. Patient will need a petition and certification if attempting to leave AMA. -When medically stable, patient is eligible for transfer to a psych bed when available. -Motivational interviewing for substance use and relapse prevention -Start Prozac 20 mg daily for mood and trazodone 50 mg qHS for sleep -Communicated plan to patient's nurse -Psychiatry will sign off at this time -Please contact with any questions. 04/29/22 17:50
[2022-04-29] MEDS: traZODone HCL 50 MG TAB PO SCH (20:30)
[2022-04-30] MEDS: FLUoxetine HCL 20 MG CAP PO SCH (07:01)
--- NOTE | 2022-04-30 10:41 | P.PN ---
Subjective Progress Note Date: 04/30/22 Principal diagnosis: suicidal Hospital Course: Patient is a 26-year-old male with history of depression presenting with suicidal ideation and worsening depression. Patient found to have the incidental asymptomatic overnight infection. Evaluated by psychiatry, will likely need inpatient stay. Subjective: Patient seen and examined at bedside. No acute events overnight. He denies any chest pain, shortness of breath, abdominal pain, urinary or bowel complaints. He denies any further suicidal ideations. Pertinent positives and negatives as discussed above, a complete review of systems was performed and all other systems are negative. Vitals Signs Reviewed. General: nontoxic, no distress, appears at stated age Derm: warm, dry Head: atraumatic, normocephalic, symmetric Eyes: EOMI, no lid lag, anicteric sclera Mouth: no lip lesion, mucus membranes moist Cardiovascular: S1S2 reg, no murmur Lungs: CTA bilateral, no rhonchi, no rales , no accessory muscle use Abdominal: soft, nontender to palpation, no guarding, no appreciable organomegaly Ext: no gross muscle atrophy, no edema, no contractures Neuro: CN II-XI grossly intact, no focal neuro deficits Psych: Alert, oriented, appropriate affect Assessment and Plan: Major depression Suicidal ideation -Bedside sitter -Suicide precautions -Psychiatry consult -Started on Prozac and trazodone -will likely need inpatient psychiatric stay Asymptomatic COVID-19 infection -Continue to monitor CODE STATUS: Full code DVT prophylaxis: SCDs, patient ambulatory Anticipated discharge date: Pending clinical course Anticipated discharge place: Inpatient psych Objective - Vital Signs Vital signs: Vital Signs Temp 97.7 F 04/30/22 06:58 Pulse 59 L 04/30/22 06:58 Resp 16 04/30/22 07:00 BP 109/72 04/30/22 06:58 Pulse Ox 96 04/30/22 06:58 FiO2 Intake & Output 04/29/22 04/30/22 04/30/22 18:59 06:59 18:59 Intake Total 960 120 Balance 960 120 Weight 102.058 kg Intake: Oral 960 120 Other: # Voids 3
[2022-04-30] MEDS: traZODone HCL 50 MG TAB PO SCH (19:51)
[2022-05-01] MEDS: FLUoxetine HCL 20 MG CAP PO SCH (06:59)
--- NOTE | 2022-05-01 10:43 | P.PN ---
Subjective Progress Note Date: 05/01/22 Principal diagnosis: suicidal Hospital Course: Patient is a 26-year-old male with history of depression presenting with suicidal ideation and worsening depression. Patient found to have the incidental asymptomatic overnight infection. Evaluated by psychiatry, will likely need inpatient stay. Subjective: Patient seen and examined at bedside. No acute events overnight. He denies any chest pain, shortness of breath, abdominal pain, urinary or bowel complaints. He denies any further suicidal ideations. Pertinent positives and negatives as discussed above, a complete review of systems was performed and all other systems are negative. Vitals Signs Reviewed. General: nontoxic, no distress, appears at stated age Derm: No lesions Head: atraumatic, normocephalic, symmetric Eyes: EOMI, no lid lag, anicteric sclera Cardiovascular: No edema Lungs: no accessory muscle use Abdominal: Nondistended Ext: no gross muscle atrophy, no edema Neuro: CN II-XI grossly intact, no focal neuro deficits Psych: Alert, oriented, appropriate affect Assessment and Plan: Major depression Suicidal ideation -Bedside sitter -Suicide precautions -Psychiatry consult -Started on Prozac and trazodone -will likely need inpatient psychiatric stay Asymptomatic COVID-19 infection -Continue to monitor CODE STATUS: Full code DVT prophylaxis: SCDs, patient ambulatory Anticipated discharge date: Pending clinical course Anticipated discharge place: Inpatient psych Objective - Vital Signs Vital signs: Vital Signs Temp 98.2 F 05/01/22 06:53 Pulse 86 05/01/22 06:53 Resp 16 05/01/22 07:00 BP 106/67 05/01/22 06:53 Pulse Ox 97 05/01/22 06:53 FiO2 Intake & Output 04/30/22 05/01/22 05/01/22 18:59 06:59 18:59 Intake Total 240 500 Balance 240 500 Intake: Oral 240 500 Other: # Voids 3 2
[2022-05-01] MEDS: traZODone HCL 50 MG TAB PO SCH (20:18)
[2022-05-02] MEDS: FLUoxetine HCL 20 MG CAP PO SCH (08:57)
--- NOTE | 2022-05-02 12:33 | P.PN ---
Subjective Progress Note Date: 05/02/22 Patient seen and examined at bedside patient denies chest pain shortness of breath nausea vomiting fevers or chills. Patient denies suicidal thoughts or ideation at this time. Objective - Vital Signs Vital signs: Vital Signs Temp 97.9 F 05/02/22 10:52 Pulse 67 05/02/22 10:52 Resp 18 05/02/22 10:52 BP 112/71 05/02/22 10:52 Pulse Ox 97 05/02/22 10:52 FiO2 Intake & Output 05/01/22 05/02/22 05/02/22 18:59 06:59 18:59 Intake Total 1080 700 Balance 1080 700 Intake: Oral 1080 700 Other: # Voids 3 2 - Exam General: [non toxic], [no distress], [appears at stated age] Derm: [warm], [dry] Head: [atraumatic], [normocephalic], [symmetric] Eyes: [EOMI], [no lid lag], [anicteric sclera] Mouth: [no lip lesion], [mucus membranes moist] Cardiovascular: [S1S2 reg], [no murmur], [positive posterior tibial pulse bilateral], Lungs: [CTA bilateral], [no rhonchi, no rales] , [no accessory muscle use] Abdominal: [soft], [ nontender to palpation], [no guarding], [no appreciable organomegaly] Ext: [no gross muscle atrophy], [no edema], [no contractures] Neuro: [ CN II-XI grossly intact], [no focal neuro deficits] Psych: [Alert], [oriented], [appropriate affect] Assessment and Plan Assessment: COVID-19 positive day #4 tested positive on 04/29/22 Patient is to complete 10 day COVID precautions before being transferred to inpatient psych Major depression Suicidal ideation -Bedside sitter -Suicide precautions -Psychiatry consult -Started on Prozac and trazodone -will likely need inpatient psychiatric stay Asymptomatic COVID-19 infection -Continue to monitor CODE STATUS: Full code DVT prophylaxis: SCDs, patient ambulatory Anticipated discharge date: Pending clinical course Anticipated discharge place: Inpatient psych
[2022-05-02] MEDS: traZODone HCL 50 MG TAB PO SCH (20:07)
[2022-05-03] MEDS: FLUoxetine HCL 20 MG CAP PO SCH (08:28)
[2022-05-03 10:37] VITALS: RESP 16
[2022-05-03 11:04] VITALS: BP 128/64; PULSE 70; TEMP 98.3
--- NOTE | 2022-05-03 12:49 | P.PN ---
Progress Note - Text Progress Note Date: 05/03/22 Interval History: Patient was seen sitting upright in his chair and was directable and agreeable to speak with the staff writer in his room., The patient is not endorsing any suicidal or homicidal ideation, intention, and/or plan. He reports that he decided to come to the hospital with concerns of suicidal thoughts by then relapsed into his methamphetamine and drug use. The patient reports that he has been sober from methamphetamines for the past 6 months. He does state that he has gained weight since then. He is otherwise reporting that he is feeling significantly better today and is future and goal oriented. The patient is denying any auditory or visual hallucinations. He reports no paranoia or other delusions. The patient's primary concern right now is his problems with sleep. He approximates 4-5 hours of sleep per night. Nausea is sleep hygiene has been poor since leaving long term. Mental Status Exam: General Appearance: Patient appears to be stated age is alert, directable, and cooperative. Behavior: Patient is calmly seated without any agitated behavior. Approach is friendly and polite. Speech: Patient's speech is fluent and nonpressured. Mood/Affect: Mood is "feeling really good today." Affect is bright. Suicidality/Homicidality: Patient denies having any suicidal or homicidal ideation intent or plan. Perceptions: Patient denies any visual hallucinations and denies any auditory hallucinations Though content/process: There is no evidence of any delusional thought content and thought process is linear and goal-directed. The patient is future oriented. Memory and concentration: AOX3, grossly intact for the purposes of this session Judgment and insight: Improving mildly Vital Signs Temp 98.3 F 05/03/22 08:00 Pulse 70 05/03/22 08:00 Resp 16 05/03/22 08:00 BP 128/64 05/03/22 08:00 Pulse Ox 94 L 05/03/22 08:00 FiO2 Intake & Output 05/02/22 05/03/22 05/03/22 18:59 06:59 18:59 Intake Total 500 250 Balance 500 250 Intake: Oral 500 250 Other: Voiding Method Toilet # Voids 6 2 Assessment Major depressive disorder Methamphetamine use disorder, in partial remission Tobacco use disorder Plan -At this time patient DOES NOT meet criteria for inpatient psychiatric admission. Currently, the patient is not reporting any suicidal or homicidal ideation, intention, and/or plan. He is future and goal oriented. He does not present with imminent risk of harm to self or others. He is cooperative and polite -Would recommend the following medication changes/additions: We will increase his Prozac to 30 mg by mouth daily for depression and anxiety We will increase his trazodone to 100 mg by mouth at bedtime for insomnia -May discontinue one-to-one sitter -Patient is psychiatrically cleared for discharge. He does not require inpatient psychiatric admission at this time. Recommend outpatient psychiatric follow up with [facility]. Patient is currently open with [facility]. -Psychiatry will sign off at this point, please contact with any questions.
--- NOTE | 2022-05-03 13:33 | P.DS ---
Providers Date of admission: 04/29/22 06:23 Expected date of discharge: 05/03/22 Attending physician: Serenity Goel MD Consults: 04/29/22 06:23 Consult Physician Routine Consulting Provider: Roberto Hobbs Consult Reason/Comments: mood disorder. Suicidal ideation Do you want consulting provider notified?: Yes 05/03/22 10:44 Consult Physician Routine Consulting Provider: Shad Frias Consult Reason/Comments: reassess patient Do you want consulting provider notified?: Yes Primary care physician: Stated None Hospital Course: Admitting diagnosis: Suicide ideation Discharge diagnoses: Anxiety depression stable COV ID19 positive asymptomatic Hospital course: Patient is a 26-year-old male with history of depression presenting with suicidal ideation and worsening depression. Patient claims that he's been feeling more depressed over the last couple months. He has been having increased thoughts of harming himself. He does not have a specific plan. He was driven by his friend to the emergency for further workup. He denies seeing a psychiatrist or being on any medications. He denies any alcohol, smoking, illicit drug use. In the ED, he was slightly tachycardic, afebrile, saturating well on room air. He was incidentally found to be COVID-19 positive. His urinary drug screen was negative. Patient seen and examined at bedside. Pertinent positives and negatives as discussed in HPI, a complete review of systems was performed and all other systems are negative. Initially patient warranted inpatient psych. However after 4 day stay on the medical floor patient was reassessed and patient was deemed appropriate for discharge and did not require inpatient psych. Clinical course: COVID-19 positive day #5 tested positive on 04/29/22 Patient is to complete 10 day COVID precautions before being transferred to inpatient psych Major depression Suicidal ideation -Bedside sitter -Suicide precautions -Psychiatry consult -Started on Prozac and trazodone Asymptomatic COVID-19 infection -Continue to monitor CODE STATUS: Full code DVT prophylaxis: SCDs, patient ambulatory Physical exam: General: [non toxic], [no distress], [appears at stated age] Derm: [warm], [dry] Head: [atraumatic], [normocephalic], [symmetric] Eyes: [EOMI], [no lid lag], [anicteric sclera] Mouth: [no lip lesion], [mucus membranes moist] Cardiovascular: [S1S2 reg], [no murmur], [positive posterior tibial pulse bilateral], Lungs: [CTA bilateral], [no rhonchi, no rales] , [no accessory muscle use] Abdominal: [soft], [ nontender to palpation], [no guarding], [no appreciable organomegaly] Ext: [no gross muscle atrophy], [no edema], [no contractures] Neuro: [ CN II-XI grossly intact], [no focal neuro deficits] Psych: [Alert], [oriented], [appropriate affect] Disposition home Activity as tolerated Diet regular Condition fair Follow-up with PCP within one week Follow-up with psychiatry within one week Patient Condition at Discharge: Fair Plan - Discharge Summary Discharge Rx Participant: Yes New Discharge Prescriptions: New traZODone HCL [Desyrel] 100 mg PO HS #30 tab FLUoxetine HCL [PROzac] 30 mg PO DAILY #30 cap Discontinued QUEtiapine [SEROquel] 50 mg PO HS tab Discharge Medication List FLUoxetine HCL [PROzac] 30 mg PO DAILY #30 cap 05/03/22 [Rx] traZODone HCL [Desyrel] 100 mg PO HS #30 tab 05/03/22 [Rx] Follow up Appointment(s)/Referral(s): None,Stated [Primary Care Provider] - 1 Week Discharge/Stand Alone Forms: Outpatient Counseling
[2022-05-03] MEDS ORDERED: traZODone HCL 100 MG TAB PO SCH (21:00)
[2022-05-04] MEDS ORDERED: FLUoxetine HCL 10 MG CAP PO SCH (09:00)
== END 2022-05-03 15:50 | disposition home or self-care (01) ==
LOC: EC 03:45 → 6NMEDSUR 06:23 → 4SSUR 10:46
PROVIDERS: ADMIT Internal Medicine; ATTEND Internal Medicine
DX: F33.9 Major depressive disorder, recurrent, unspecified (principal); F39 Unspecified mood [affective] disorder; F41.9 Anxiety disorder, unspecified; U07.1 COVID-19; J45.909 Unspecified asthma, uncomplicated; F17.290 Nicotine dependence, other tobacco product, uncomplicated; F15.10 Other stimulant abuse, uncomplicated; F12.90 Cannabis use, unspecified, uncomplicated; Z88.5 Allergy status to narcotic agent; Z79.899 Other long term (current) drug therapy; Z91.51 Personal history of suicidal behavior; Z56.0 Unemployment, unspecified
CPT/HCPCS: 82075; 99285; 80306; 87635; G0378 ×5

== ENCOUNTER 2022-08-06 23:26 | Inpatient (IN) | payer MEDICAID, OTHER ==
--- NOTE | 2022-08-07 00:39 | ED ---
Psych HPI - General Chief Complaint: Psychiatric Symptoms Stated Complaint: Mental Health Time Seen by Provider: 08/06/22 23:36 Source: patient, EMS Mode of arrival: EMS - History of Present Illness Initial Comments: This patient is 26-year-old man who is here to be seen about suicidal ideation. Patient states that he was feeling very depressed tonight, he took a cell phone educational assistant and wrapped around his neck and was tightening it but then changed his mind. He presents here for for further help. The patient did not have loss consciousness. He is denying pain in the neck. MD Complaint: suicidal ideation, feels depressed -: hour(s) Associated Psychiatric Symptoms: depression, suicidal ideation Quality: getting worse Improves With: none Worsens With: none Associated Symptoms: denies other symptoms - Related Data Previous Rx's Medication Instructions Recorded FLUoxetine HCL [PROzac] 30 mg PO DAILY #30 cap 05/03/22 traZODone HCL [Desyrel] 100 mg PO HS #30 tab 05/03/22 Allergies Allergy/AdvReac Type Severity Reaction Status Date / Time amoxicillin [Amoxicillin] Allergy Rash/Hives Verified 08/07/22 04:00 codeine Allergy Rash/Hives Verified 08/07/22 04:00 Review of Systems ROS Statement: Those systems with pertinent positive or pertinent negative responses have been documented in the HPI. ROS Other: All systems not noted in ROS Statement are negative. Eyes: Denies: vision change Respiratory: Denies: cough, dyspnea Cardiovascular: Denies: chest pain, syncope Gastrointestinal: Denies: abdominal pain, vomiting, diarrhea Genitourinary: Denies: dysuria, hematuria Musculoskeletal: Denies: back pain Skin: Denies: rash Neurological: Denies: headache, weakness, numbness, paresthesias Psychiatric: Reports: depression, suicidal thoughts. Denies: auditory hallucinations, visual hallucinations, homicidal thoughts Past Medical History Past Medical History: Asthma Additional Past Medical History / Comment(s): C7 fx in 2014 History of Any Multi-Drug Resistant Organisms: None Reported Past Surgical History: No Surgical Hx Reported Past Anesthesia/Blood Transfusion Reactions: Unable to Obtain Past Psychological History: Depression Smoking Status: Current every day smoker, Vaper Past Alcohol Use History: Occasional Past Drug Use History: Methamphetamine - Past Family History family Family Medical History: Unable to Obtain General Exam Limitations: no limitations General appearance: alert, in no apparent distress Head exam: Present: atraumatic, normocephalic Eye exam: Present: normal appearance. Absent: scleral icterus, conjunctival injection Neck exam: Present: normal inspection, full ROM. Absent: tenderness, meningismus Respiratory exam: Present: normal lung sounds bilaterally. Absent: respiratory distress, wheezes, rales, rhonchi, stridor, accessory muscle use Cardiovascular Exam: Present: regular rate, normal rhythm, normal heart sounds. Absent: systolic murmur, diastolic murmur, rubs, gallop GI/Abdominal exam: Present: soft. Absent: distended, tenderness, guarding, rebo und, rigid, mass Extremities exam: Present: normal inspection, normal capillary refill. Absent: pedal edema, calf tenderness Back exam: Present: normal inspection. Absent: CVA tenderness (R), CVA tenderness (L) Neurological exam: Present: alert Psychiatric exam: Present: depressed, suicidal ideation. Absent: anxious, flat affect, manic, homicidal ideation Skin exam: Present: warm, dry, intact, normal color. Absent: rash Course Vital Signs 08/06/22 23:32 Temperature 98.1 F Pulse Rate 89 Respiratory 18 Rate Blood Pressure 131/80 O2 Sat by Pulse 99 Oximetry Medical Decision Making - Medical Decision Making Patient is 26-year-old man here with worsen of his baseline mood and persistent suicidal ideation, the patient is seen by the EPS nurse and after discussion with psychiatrist they will admit patient. Was pt. sent in by a medical professional or institution? @ -no Did you speak to anyone other than the patient for history? @ -[No Did you review nursing and triage notes? @ -[agree Were old charts reviewed? @ -[yes Differential Diagnosis? @ -[Differential Dizziness: Mood disorders EKG interpreted by me (3pts min.)? @ -[ X-rays interpreted by me (1pt min.)? @ - CT interpreted by me (1pt min.)? @ - U/S interpreted by me (1pt. min.)? @ -[none] What testing was considered but not performed? (CT, X-rays, U/S, labs)? Why? @ [ What meds were considered but not given? Why? @ -[none] Did you discuss the management of the patient with other professionals? @ -[Yes, EPS nurse Did you reconcile home meds? @ -[none] Was smoking cessation discussed for >3mins.? @ -[none] Was critical care preformed (if so, how long)? @ -[none] Were there social determinants of health that impacted care today? How? (Homelessness, low income, unemployed, alcoholism, drug addiction, transportation, low edu. Level, literacy, decrease access to med. care, retirement, rehab)? @ -[No Was there de-escalation of care discussed even if they declined? (Discuss DNR or withdrawal of care, Hospice)? @ -[No What co-morbidities impacted this encounter? (DM, HTN, Smoking, COPD, CAD, Cancer, CVA, Hep., AIDS, mental health diagnosis, sleep apnea, morbid obesity)? @ -[None Was patient admitted / discharged? @ -[Admitted Undiagnosed new problem with uncertain prognosis? @ -[none] Drug Therapy requiring intensive monitoring for toxicity (Heparin, Nitro, Insulin, Cardizem)? @ -[none] Were any procedures done? @ -[none] Diagnosis/symptom? @ -[Mood disorder with suicidal ideation Acute, or Chronic, or Acute on Chronic? @ -[Acute Uncomplicated (without systemic symptoms) or Complicated (systemic symptoms)? @ -[Uncomplicated Side effects of treatment? @ -[none] Exacerbation, Progression, or Severe Exacerbation] @ -[no] Poses a threat to life or bodily function? @ -[Yes - Lab Data Result diagrams: 08/07/22 10:23 08/07/22 10:23 Lab Results 08/06/22 08/06/22 08/06/22 Range/Units 23:52 23:52 23:52 Urine Color Yellow Urine Appearance Cloudy (Clear) Urine pH 5.5 (5.0-8.0) Ur Specific [place] 1.024 (1.001-1.035) Urine Protein Trace H (Negative) Urine Glucose (UA) Negative (Negative) Urine Ketones Negative (Negative) Urine Blood Negative (Negative) Urine Nitrite Negative (Negative) Urine Bilirubin Negative (Negative) Urine Urobilinogen <2.0 (<2.0) mg/dL Ur Leukocyte Esterase Large H (Negative) Urine RBC 9 H (0-5) /hpf Urine WBC >182 H (0-5) /hpf Ur Squamous Epith Cells 1 (0-4) /hpf Urine Bacteria Rare H (None) /hpf Hyaline Casts 15 H (0-2) /lpf Granular Casts 6 (0) /lpf Urine Mucus Rare H (None) /hpf Urine Opiates Screen Not Detected (NotDetected) Ur Oxycodone Screen Not Detected (NotDetected) Urine Methadone Screen Not Detected (NotDetected) Ur Propoxyphene Screen Not Detected (NotDetected) Ur Barbiturates Screen Not Detected (NotDetected) U Tricyclic Antidepress Not Detected (NotDetected) Ur Phencyclidine Scrn Not Detected (NotDetected) Ur Amphetamines Screen Not Detected (NotDetected) U Methamphetamines Scrn Not Detected (NotDetected) U Benzodiazepines Scrn Not Detected (NotDetected) Urine Cocaine Screen Not Detected (NotDetected) U Marijuana (THC) Screen Detected H (NotDetected) Chlamydia Source Urine Chlamydia DNA (PCR) Negative (Neg,Equiv) Coronavirus (PCR) (Not Detectd) N. gonorrhoeae Source Urine N.gonorrhoeae DNA Probe Negative (Neg,Equiv) 08/07/22 Range/Units 01:35 Urine Color Urine Appearance (Clear) Urine pH (5.0-8.0) Ur Specific [place] (1.001-1.035) Urine Protein (Negative) Urine Glucose (UA) (Negative) Urine Ketones (Negative) Urine Blood (Negative) Urine Nitrite (Negative) Urine Bilirubin (Negative) Urine Urobilinogen (<2.0) mg/dL Ur Leukocyte Esterase (Negative) Urine RBC (0-5) /hpf Urine WBC (0-5) /hpf Ur Squamous Epith Cells (0-4) /hpf Urine Bacteria (None) /hpf Hyaline Casts (0-2) /lpf Granular Casts (0) /lpf Urine Mucus (None) /hpf Urine Opiates Screen (NotDetected) Ur Oxycodone Screen (NotDetected) Urine Methadone Screen (NotDetected) Ur Propoxyphene Screen (NotDetected) Ur Barbiturates Screen (NotDetected) U Tricyclic Antidepress (NotDetected) Ur Phencyclidine Scrn (NotDetected) Ur Amphetamines Screen (NotDetected) U Methamphetamines Scrn (NotDetected) U Benzodiazepines Scrn (NotDetected) Urine Cocaine Screen (NotDetected) U Marijuana (THC) Screen (NotDetected) Chlamydia Source Chlamydia DNA (PCR) (Neg,Equiv) Coronavirus (PCR) Not Detected (Not Detectd) N. gonorrhoeae Source N.gonorrhoeae DNA Probe (Neg,Equiv) Disposition Clinical Impression: Mood disorder, Suicidal ideation Disposition: ADMITTED IP TO THIS HOSP Condition: Fair Is patient prescribed a controlled substance at d/c from ED?: No
[2022-08-07 01:17] LABS: Appearance,Urine Cloudy (Clear); Bacteria,Urine Rare /hpf; Bilirubin,Urine Negative (Negative); Blood,Urine Negative (Negative); Color,Urine Yellow; Glucose,Urine (UA) Negative (Negative); Granular Casts,Urine 6 /lpf (0); Hyaline Casts,Urine 15 /lpf (0-2); Ketones,Urine Negative (Negative); Leukocyte Esterase,Urine Large (Negative); Mucus,Urine Rare /hpf; Nitrite,Urine Negative (Negative); PH, Urine 5.5 (5.0-8.0); Protein,Urine Trace (Negative); RBC,Urine 9 /hpf (0-5); Specific Gravity,Urine 1.024 (1.001-1.035); Squamous Epithelial Cell,Urine 1 /hpf (0-4); Urobilinogen,Urine <2.0 mg/dL (<2.0); WBC,Urine >182 /hpf (0-5)
[2022-08-07 01:20] LABS: Amphetamine Screen,Urine Not Detected (NotDetected); Barbiturate Screen,Urine Not Detected (NotDetected); Benzodiazepines Screen,Urine Not Detected (NotDetected); Cocaine Screen,Urine Not Detected (NotDetected); Methadone Screen, Urine Not Detected (NotDetected); Opiate Screen,Urine Not Detected (NotDetected); Oxycodone Screen, Urine Not Detected (NotDetected); Phencyclidine Screen,Urine Not Detected (NotDetected); Tricyclic Antidepressant,Urine Not Detected (NotDetected); Urn Cannabinoid Scrn Detected (NotDetected)
[2022-08-07] MEDS ORDERED: MAG HYDROX/AL HYDROX/SIMETH 30 ML CUP PO PRN (03:05)
[2022-08-07] MEDS ORDERED: MAGNESIUM HYDROXIDE 2,400 MG/10 ML CUP PO PRN (03:05)
[2022-08-07] MEDS ORDERED: ACETAMINOPHEN TAB 325 MG TAB PO PRN (03:05)
[2022-08-07] MEDS ORDERED: HALOPERIDOL LACTATE 5 MG/ML 1 ML VIAL IM PRN (03:05)
[2022-08-07] MEDS ORDERED: haloperidoL 5 MG TAB PO PRN (03:08)
[2022-08-07] MEDS ORDERED: LORazepam 2 MG/ML INJ IM PRN (03:08)
[2022-08-07] MEDS ORDERED: NICOTINE 14MG/24HR PATCH TRANSDERM SCH (09:00)
--- NOTE | 2022-08-07 11:13 | P.HP ---
Psychiatric H&P - . H&P Date: 08/07/22 History & Physical: Allergies Allergy/AdvReac Type Severity Reaction Status Date / Time amoxicillin [Amoxicillin] Allergy Rash/Hives Verified 08/07/22 04:00 codeine Allergy Rash/Hives Verified 08/07/22 04:00 Vital Signs Temp 97.5 F L 08/07/22 03:55 Pulse 63 08/07/22 03:55 Resp 18 08/07/22 03:55 BP 119/69 08/07/22 03:55 Pulse Ox 98 08/07/22 03:55 FiO2 Intake & Output 08/06/22 08/07/22 08/07/22 18:59 06:59 18:59 Weight 106.503 kg Laboratory Last Values Urine Color Yellow 08/06/22 23:52 Urine Appearance Cloudy (Clear) 08/06/22 23:52 Urine pH 5.5 (5.0-8.0) 08/06/22 23:52 Ur Specific [place] 1.024 (1.001-1.035) 08/06/22 23:52 Urine Protein Trace (Negative) H 08/06/22 23:52 Urine Glucose (UA) Negative (Negative) 08/06/22 23:52 Urine Ketones Negative (Negative) 08/06/22 23:52 Urine Blood Negative (Negative) 08/06/22 23:52 Urine Nitrite Negative (Negative) 08/06/22 23:52 Urine Bilirubin Negative (Negative) 08/06/22 23:52 Urine Urobilinogen <2.0 mg/dL (<2.0) 08/06/22 23:52 Ur Leukocyte Esterase Large (Negative) H 08/06/22 23:52 Urine RBC 9 /hpf (0-5) H 08/06/22 23:52 Urine WBC >182 /hpf (0-5) H 08/06/22 23:52 Ur Squamous Epith Cells 1 /hpf (0-4) 08/06/22 23:52 Urine Bacteria Rare /hpf (None) H 08/06/22 23:52 Hyaline Casts 15 /lpf (0-2) H 08/06/22 23:52 Granular Casts 6 /lpf (0) 08/06/22 23:52 Urine Mucus Rare /hpf (None) H 08/06/22 23:52 Urine Opiates Screen Not Detected (NotDetected) 08/06/22 23:52 Ur Oxycodone Screen Not Detected (NotDetected) 08/06/22 23:52 Urine Methadone Screen Not Detected (NotDetected) 08/06/22 23:52 Ur Propoxyphene Screen Not Detected (NotDetected) 08/06/22 23:52 Ur Barbiturates Screen Not Detected (NotDetected) 08/06/22 23:52 U Tricyclic Antidepress Not Detected (NotDetected) 08/06/22 23:52 Ur Phencyclidine Scrn Not Detected (NotDetected) 08/06/22 23:52 Ur Amphetamines Screen Not Detected (NotDetected) 08/06/22 23:52 U Methamphetamines Scrn Not Detected (NotDetected) 08/06/22 23:52 U Benzodiazepines Scrn Not Detected (NotDetected) 08/06/22 23:52 Urine Cocaine Screen Not Detected (NotDetected) 08/06/22 23:52 U Marijuana (THC) Screen Detected (NotDetected) H 08/06/22 23:52 Coronavirus (PCR) Not Detected (Not Detectd) 08/07/22 01:35 08/07/22 11:07 IDENTIFYING DATA: Patient is a 26-year-old male who currently has 2 kids and is employed working as a [employer], recently got kicked out of his girlfriend's home HPI: Patient presented to the hospital yesterdayhe apparently was attempting suicide at home. Patient has a history of several inpatient psychiatric hospitalizations in the past. He also has a history of polysubstance abuse however is currently sober. Patient's urine drug screen was positive for THC. Patient was admitted to the psychiatric unit voluntarily. Patient was seen wandering the hallway and agreeable to writer technical publications. He states that he had a "bad couple of days" and claims that he had a big fight with his girlfriend. He was fairly guarded and evasive during conversation also concrete. He states that "everything escalated" and claims that he wrapped a phone stunt double around his neck and was hitting his head against the wall. He denies any loss of consciousness or any changes in his mental status. He claims he has been impulsive lately and he is not currently handling emotions. He did claim that his worst suicide attempts. He claims has been having financial difficulties and also problems with his living situation as his girlfriend recently kicked him out on Sunday before coming in the hospital. He states that he has been feeling depressed and fairly anxious and having racing thoughts. His sleep has been on and off. Appetite has been fair has been fair. He claims that he has been sober from drugs except for marijuana for the past 10 months. He states that he uses about 2 g a day of marijuana. Denies any cigarette use. Patient denies any suicidal or homicidal ideations intent or plan. At this time patient denies any auditory or visual hallucinations. PAST PSYCHIATRIC HISTORY: Patient states that he has a history of polysubstance abuse and depression. Patient was previously on Risperdal Seroquel and Prozac however stopped taking them. Patient was last psychiatrically hospitalized in July 2021 and also in November 2020 on the mental health unit. Patient denies any psychiatric outpatient follow-up. Patient states that he did have a previous suicide attempt. PMH: Asthma ALLERGIES: as per EMR CHEMICAL DEPENDENCY HISTORY: as per HPI FAMILY PSYCHIATRIC/SUBSTANCE USE HISTORY: CLaims that both parents are alcoholics SOCIAL HISTORY: The patient has been dating his girlfriend for several years. He has a son named Aureliano. He also has a daughter with another woman from previous relationship. He currently lives with his girlfriend however states that he was recently kicked out on Sunday. His mother and father when he was 17. The patient denies any significant history of trauma. He is currently unemployed. He has a ninth grade education. He currently works as a alvarez. MENTAL STATUS EXAM: General Appearance: Patient appears to be tattoos, poor hygiene and grooming, stated age is alert, vague and evasive. Patient appears to have poor hygiene and grooming. Behavior: Patient is seated without any agitated behavior. vague and guarded. Speech: Patient's speech is fluent and nonpressured. [place] Mood/Affect: Patient reports their mood is "depressed", affect is congruent and constricted. Suicidality/Homicidality: Patient denies having any homicidal ideation intent or plan. Denies any suicidal ideations intent or plan Perceptions: Patient denies any visual hallucinations and denies any auditory hallucinations Though content/process: Patient is concrete, poverty of content. Minimizing his stressors. Memory and concentration: AOX3, grossly intact for the purposes of this session. Can spell "WORLD" backwards Judgment and insight: poor STRENGTHS/WEAKNESSES: strength is that patient is resilient. Weakness is that patient has poor judgment and is impulsive INTELLECT: average IMPRESSIONS: depressive disorder NOS, rule out bipolar depression anxiety disorder NOS Cannabis use disorder PLAN: -Patient is admitted under voluntary status to MHU for stabilization of psychiatric symptoms and safety. Patient has signed adult voluntary form and medication consent and is placed in patient's chart. -Medications : Will start patient on seroquel 50 mg qhs for mood stabilization/insomnia. start cymbalta 30 mg daily for mood/anxiety. vistaril prn for anxiety. -Ativan and Haldol PRN for agitation/aggression -Patient was counselled on substance abuse and desired to cut back on use -Patient was informed of the risks, benefits and side effects of the medication and patient verbally consented to taking the medications. Patient signed med consent form and was placed in chart. -Internal Medicine consult to perform medical evaluation and physical. -NRT - not needed as patient does not smoke. -SW on board for discharge planning. Encourage patient to participate in groups to work on coping skills.
[2022-08-07] MEDS ORDERED: hydrOXYzine pamoate 25 MG CAP PO PRN (11:14)
[2022-08-07 11:20] LABS: Basophils % (A) 1 %; Eosinophils # (A) 0.3 k/uL (0-0.7); Eosinophils % (A) 4 %; HCT 44.3 % (39.0-53.0); HGB 15.1 gm/dL (13.0-17.5); Lymphocytes # (A) 1.4 k/uL (1.0-4.8); Lymphocytes % (A) 23 %; MCH 29.7 pg (25.0-35.0); MCHC 34.1 g/dL (31.0-37.0); MCV 87.1 fL (80.0-100.0); Mean Platelet Volume 7.9; Monocytes # (A) 0.5 k/uL (0-1.0); Monocytes % (A) 7 %; Neutrophils # (A) 3.8 k/uL (1.3-7.7); Neutrophils % (A) 62 %; Platelet Count 187 k/uL (150-450); RBC 5.08 m/uL (4.30-5.90); RDW 12.9 % (11.5-15.5); WBC 6.1 k/uL (3.8-10.6)
[2022-08-07 11:42] LABS: ALT 47 U/L (4-49); AST 32 U/L (17-59); African American GFR (CKD) >90 (>60 ml/min/1.73 sqM); Albumin 4.5 g/dL (3.5-5.0); Alkaline Phosphatase 64 U/L (38-126); Anion Gap 8 mmol/L; Bilirubin, Delta 0.4 mg/dL (0.0-0.2); Bilirubin,Unconjugated 0.2 mg/dL (0.0-1.1); Blood Urea Nitrogen 14 mg/dL (9-20); Calcium 9.6 mg/dL (8.4-10.2); Carbon Dioxide 24 mmol/L (22-30); Chloride 109 mmol/L (98-107); Glucose 72 mg/dL (74-99); Non-African American GFR(CKD) >90 (>60 ml/min/1.73 sqM); Potassium 4.6 mmol/L (3.5-5.1); Sodium 141 mmol/L (137-145); Total Bilirubin 0.6 mg/dL (0.2-1.3); Total Protein 7.5 g/dL (6.3-8.2)
[2022-08-07] MEDS: DULoxetine HCL 30 MG CAPSULE.DR PO SCH (12:23)
[2022-08-07] MEDS: LORazepam 1 MG TAB PO PRN (13:25)
[2022-08-07 19:33] LABS: Chol/HDL Ratio 5.56 Ratio; LDL Cholesterol,Calculated 118.3 mg/dL (0.0-131.0)
[2022-08-07] MEDS ORDERED: QUEtiapine 50 MG TAB PO SCH (21:00)
--- NOTE | 2022-08-08 01:37 | P.MDCNMH ---
History of Present Illness H&P Date: 08/07/22 Chief Complaint: medical eval 26 year old male presented for depression and suicidal ideation , he attempted to wrap a print decorator wire around his neck , felt guilty and seeked help. he denies any fever chills, cough , SOB, abd pain , nausea or vomiting. he is concerned regarding STI, he is sexually active and does not use protection , he is concerned due to penile discharge. yellowish discoloration. that has been going on for about a year now. he denies any penile lesions. he denies any history of STI patient is requesting STI testing denies tobacco smoking , illicit drugs , or heavy alcohol Review of Systems Pertinent positives as noted in HPI. All other systems were reviewed and are negative Past Medical History Past Medical History: Asthma Additional Past Medical History / Comment(s): C7 fx in 2013 History of Any Multi-Drug Resistant Organisms: None Reported Past Surgical History: No Surgical Hx Reported Past Anesthesia/Blood Transfusion Reactions: Unable to Obtain Past Psychological History: Depression Smoking Status: Former smoker, Vaper Past Alcohol Use History: Occasional Past Drug Use History: Methamphetamine - Past Family History family Family Medical History: Unable to Obtain Medications and Allergies Home Medications Medication Instructions Recorded Confirmed Type FLUoxetine HCL [PROzac] 30 mg PO DAILY #30 cap 05/03/22 08/07/22 Rx traZODone HCL [Desyrel] 100 mg PO HS #30 tab 05/03/22 08/07/22 Rx Allergies Allergy/AdvReac Type Severity Reaction Status Date / Time amoxicillin [Amoxicillin] Allergy Rash/Hives Verified 08/07/22 04:00 codeine Allergy Rash/Hives Verified 08/07/22 04:00 Physical Exam Vitals: Vital Signs Temp Pulse Pulse Resp BP BP Pulse Ox 08/07/22 03:55 97.5 F L 63 18 119/69 98 08/06/22 23:32 98.1 F 89 18 131/80 99 Intake and Output 08/07/22 08/07/22 08/07/22 06:59 14:59 22:59 Other: Weight 106.503 kg Constitutional: No acute distress, conversant, pleasant Eyes: Anicteric sclerae, moist conjunctiva, Pupils equal round reactive to light ENMT: NC/AT Oropharynx clear, no erythema, or exudates Neck: Supple, no masses, or JVD No carotid bruits No thyromegaly Lungs: Clear to auscultation Clear to percussion Normal respiratory effort, no accessory muscle use Cardiovascular: Heart regular in rate and rhythm, No murmurs, gallops, or rubs No peripheral edema Abdominal: Soft Nontender, no guarding, rebound or rigidity Abdomen moving with respiration Normoactive bowel sounds Skin: Normal temperature, tone, texture, turgor Extremities: No digital cyanosis No clubbing Pedal pulses intact and symmetrical Radial pulses intact and symmetrical No calf tenderness Psychiatric: Alert and oriented to person, place and time Neuro Muscles Strength 5/5 in all 4 extremities Sensation to light touch grossly present throughout Cranial nerves II-XII grossly intact Cranial Nerve Examination - Cranial Nerves Cranial Nerve II- Optic: Intact Cranial Nerve III- Oculomotor: Intact Cranial Nerve IV- Trochlear: Intact Cranial Nerve V- Trigeminal: Intact Cranial Nerve - Abducens: Intact Cranial Nerve VII- Facial: Intact Cranial Nerve VIII- Auditory: Intact Cranial Nerve IX- Glossopharyngeal: Intact Cranial Nerve X- Vagus: Intact Cranial Nerve XI- Accessory: Intact Cranial Nerve XII- Hypoglossal: Intact Results CBC & Chem 7: 08/07/22 10:23 08/07/22 10:23 Labs: Abnormal Lab Results - Last 24 Hours (Table) 08/06/22 08/06/22 08/07/22 Range/Units 23:52 23:52 10:23 Chloride 109 H (98-107) mmol/L Glucose 72 L (74-99) mg/dL Delta Bilirubin 0.4 H (0.0-0.2) mg/dL Triglycerides 163.00 H (0.00-149.00) mg/dL HDL Cholesterol 33.10 L (40.00-60.00) mg/dL Urine Protein Trace H (Negative) Ur Leukocyte Esterase Large H (Negative) Urine RBC 9 H (0-5) /hpf Urine WBC >182 H (0-5) /hpf Urine Bacteria Rare H (None) /hpf Hyaline Casts 15 H (0-2) /lpf Urine Mucus Rare H (None) /hpf U Marijuana (THC) Screen Detected H (NotDetected) Assessment and Plan Assessment: depression , suicidal ideation management per psych obesity counseled regarding weight loss and life style modification penile discharge patient requesting STI testing check HIV, syphilis, chlamydia and gonorrhea patient counseled regarding safe sexual practice and using protection thank you for this consultation
[2022-08-08] MEDS: DULoxetine HCL 30 MG CAPSULE.DR PO SCH (08:16)
[2022-08-08] MEDS: LORazepam 1 MG TAB PO PRN ×2 (10:57→18:17)
--- NOTE | 2022-08-08 13:43 | P.PN ---
Progress Note - Text Progress Note Date: 08/08/22 Interval History: Patient was seen lying in bed today after lunch and was directable and agreeable to speak with verse writer. Patient continues to have a constricted affect and states that he still feeling depressed and somewhat anxious during the day. We spoke about his medications and answered questions. He claims that he did not sleep that well last night about 3-4 hours. He was agreeable to have his Seroquel increased to 100 mg for tonight. He claims that he is going to some groups however is mainly been keeping himself. He claims to have a fair appetite at this time. At this time patient denies any suicidal or homical ideations, intent or plan. Patient denies any auditory, visual hallucinations and denies any paranoia or delusions. Patient denies any side effects from the medications and has been compliant with meds. Mental Status Exam: General Appearance: Patient appears to be tattoos, poor hygiene and grooming, stated age is alert, vague and evasive, improving mildly. Patient appears to have improving hygiene and grooming. Behavior: Patient is seated without any agitated behavior. vague, improving Speech: Patient's speech is fluent and nonpressured. [place] and monotone Mood/Affect: Patient reports their mood is "depressed and anxious", affect is congruent and constricted. Suicidality/Homicidality: Patient denies having any homicidal ideation intent or plan. Denies any suicidal ideations intent or plan Perceptions: Patient denies any visual hallucinations and denies any auditory hallucinations Though content/process: Patient is concrete, poverty of content. Minimizing his stressors. Memory and concentration: AOX3, grossly intact for the purposes of this session. Judgment and insight: poor, improving moderately. IMPRESSIONS: depressive disorder NOS, rule out bipolar depression anxiety disorder NOS Cannabis use disorder Plan: -Patient continues to meet criteria for inpatient psychiatric admission for symptom stabilization and safety. Patient has signed adult voluntary form and medication consent and was placed in patient's chart. -Medications: Increase seroquel 100 mg qhs for mood stabilization/insomnia. Increase cymbalta 60 mg daily for mood/anxiety. vistaril prn for anxiety. -When necessary Ativan and Haldol for agitation/aggression. -NRT - not needed as patient does not smoke. -SW on board for discharge planning. Encouraged the patient to participate in milieu. likely discharge in 2-3 days.
[2022-08-08] MEDS: NICOTINE 14MG/24HR PATCH TRANSDERM SCH (13:46)
[2022-08-08 14:02] LABS: HIV 2 AB Non-Reactive (Non-Reactive); HIV AB P24 Non-Reactive (Non-Reactive); HIV P24 AG Non-Reactive (Non-Reactive)
[2022-08-08 14:12] LABS: C. trachomatis,PCR Negative (Neg,Equiv); Chlamydia trachomatis Source Urine; N. gonorrhoeae,PCR Negative (Neg,Equiv); Neisseria Source Urine
[2022-08-08] MEDS: QUEtiapine 100 MG TAB PO SCH (20:25)
[2022-08-09] MEDS: DULoxetine HCL 60 MG CAPSULE.DR PO SCH (08:18)
[2022-08-09] MEDS: NICOTINE 14MG/24HR PATCH TRANSDERM SCH (08:18)
[2022-08-09] MEDS: LORazepam 1 MG TAB PO PRN ×2 (08:19→15:07)
[2022-08-09] MEDS ORDERED: hydrOXYzine pamoate 25 MG CAP PO PRN (10:39)
--- NOTE | 2022-08-09 13:34 | P.PN ---
Progress Note - Text Progress Note Date: 08/09/22 Interval History: Patient was seen lying in bed today and agreeable to speak with curriculum writer. Patient claims that he was sleeping this morning and slept through the night bit better last night. He claims that he got about 7 hours last night. He claims that he likes the dose of Seroquel works. He did claim to have some anxiety during the day. He claims that the Vistaril at the current dose has not been helping him. He claims that he has mainly been keeping himself however was encouraged to go to more groups. He continues to be fairly constricted in his affect concrete in keeping to himself. He claims to have a fair appetite at this time. He states that his mood is mildly improving. At this time patient denies any suicidal or homical ideations, intent or plan. Patient denies any auditory, visual hallucinations and denies any paranoia or delusions. Patient denies any side effects from the medications and has been compliant with meds. We spoke about discharge planning and different options and he states that he would like to try to call access to go to rehab. Mental Status Exam: General Appearance: Patient appears to be tattoos, poor hygiene and grooming, stated age is alert, vague, improving mildly. Patient appears to have improving hygiene and grooming. Behavior: Patient is in bed without any agitated behavior. vague, improving Speech: Patient's speech is fluent and nonpressured. [place] and monotone Mood/Affect: Patient reports their mood is "anxious today but mood is a bit better", affect is congruent and constricted. Suicidality/Homicidality: Patient denies having any homicidal ideation intent or plan. Denies any suicidal ideations intent or plan Perceptions: Patient denies any visual hallucinations and denies any auditory hallucinations Though content/process: Patient is concrete, poverty of content. Memory and concentration: AOX3, grossly intact for the purposes of this session. Judgment and insight: improving moderately. IMPRESSIONS: depressive disorder NOS, rule out bipolar depression anxiety disorder NOS Cannabis use disorder Plan: -Patient continues to meet criteria for inpatient psychiatric admission for symptom stabilization and safety. Patient has signed adult voluntary form and medication consent and was placed in patient's chart. -Medications: seroquel 100 mg qhs for mood stabilization/insomnia. cymbalta 60 mg daily for mood/anxiety. increase prn vistaril for anxiety. -When necessary Ativan and Haldol for agitation/aggression. -NRT - not needed as patient does not smoke. -SW on board for discharge planning. Encouraged the patient to participate in milieu. likely discharge in 1-2 days. patient will call access line today to see if he can get a date for rehab.
[2022-08-09] MEDS: QUEtiapine 100 MG TAB PO SCH (20:56)
[2022-08-10 07:05] VITALS: RESP 14
[2022-08-10] MEDS: DULoxetine HCL 60 MG CAPSULE.DR PO SCH (08:18)
[2022-08-10] MEDS: LORazepam 1 MG TAB PO PRN ×2 (08:19→15:22)
[2022-08-10] MEDS: NICOTINE 14MG/24HR PATCH TRANSDERM SCH (09:09)
--- NOTE | 2022-08-10 10:14 | P.PN ---
Progress Note - Text Progress Note Date: 08/10/22 Interval History: Patient was seen taking part in group this morning and agreeable to speak with tech writer. Patient states that he is doing a bit better with regard to his mood however continues to endorse some anxiety. He states that he spoke with his girlfriend last night who opened up the option for him to stay with her and her grandmother once he is discharged from the hospital however he states that he is hesitant about thisand wants to pursue rehab instead. Patient claims that he was sleeping well up until this morning when a new patient arrived and made lots of noise. He states that he is chronically more groups and participate. Continues to have a fairly constricted affect however this is improving. In that his mood has been improving as well. At this time patient denies any suicidal or homical ideations, intent or plan. Patient denies any auditory, visual hallucinations an d denies any paranoia or delusions. Patient denies any side effects from the medications and has been compliant with meds. Mental Status Exam: General Appearance: Patient appears to be tattoos, improving hygiene and grooming, stated age is alert, vague, improving mildly. Patient appears to have improving hygiene and grooming. Behavior: Patient is in bed without any agitated behavior, improving Speech: Patient's speech is fluent and nonpressured. [place] and monotone Mood/Affect: Patient reports their mood is "anxious", affect is congruent and improving Suicidality/Homicidality: Patient denies having any homicidal ideation intent or plan. Denies any suicidal ideations intent or plan Perceptions: Patient denies any visual hallucinations and denies any auditory hallucinations Though content/process: Patient is concrete, poverty of content. Memory and concentration: AOX3, grossly intact for the purposes of this session. Judgment and insight: improving mildly IMPRESSIONS: depressive disorder NOS, rule out bipolar depression anxiety disorder NOS Cannabis use disorder Plan: -Patient continues to meet criteria for inpatient psychiatric admission for symptom stabilization and safety. Patient has signed adult voluntary form and medication consent and was placed in patient's chart. -Medications: seroquel 100 mg qhs for mood stabilization/insomnia. increase cymbalta 90 mg daily for mood/anxiety. prn vistaril for anxiety. -When necessary Ativan and Haldol for agitation/aggression. -NRT - not needed as patient does not smoke. -SW on board for discharge planning. Encouraged the patient to participate in milieu. likely discharge tomorrow. awaiting answer from rehab on intake date.
[2022-08-10] MEDS: QUEtiapine 100 MG TAB PO SCH (20:27)
[2022-08-11 07:16] VITALS: BP 118/67; PULSE 62; TEMP 97.7
[2022-08-11] MEDS: LORazepam 1 MG TAB PO PRN (07:58)
[2022-08-11] MEDS: NICOTINE 14MG/24HR PATCH TRANSDERM SCH (07:58)
[2022-08-11] MEDS ORDERED: DULoxetine HCL 30 MG CAPSULE.DR PO SCH (09:00)
--- NOTE | 2022-08-11 10:09 | P.DS ---
Providers Date of admission: 08/07/22 02:53 Expected date of discharge: 08/11/22 Attending physician: Shad Frias MD Consults: 08/07/22 03:05 Consult Physician Routine Consulting Provider: [facility] Consult Reason/Comments: Patient will need History and physical. Medical management Do you want consulting provider notified?: Yes Primary care physician: Stated None - Discharge Diagnosis(es) (1) Depressive disorder Current Visit: Yes Status: Acute Priority: High (2) Generalized anxiety disorder Current Visit: Yes Status: Acute Priority: Medium (3) Cannabis use disorder Current Visit: Yes Status: Acute Priority: Medium Hospital Course: Admission HPI: Admission note was completed by process description writer "Patient is a 26-year-old male who currently has 2 kids and is employed working as a alvarez, recently got kicked out of his girlfriend's home. Patient presented to the hospital yesterdayhe apparently was attempting suicide at home. Patient has a history of several inpatient psychiatric hospitalizations in the past. He also has a history of polysubstance abuse however is currently sober. Patient's urine drug screen was positive for THC. Patient was admitted to the psychiatric unit voluntarily. Patient was seen wandering the hallway and agreeable to process description writer. He states that he had a "bad couple of days" and claims that he had a big fight with his girlfriend. He was fairly guarded and evasive during conversation also concrete. He states that "everything escalated" and claims that he wrapped a phone java web user interface developer around his neck and was hitting his head against the wall. He denies any loss of consciousness or any changes in his mental status. He claims he has been impulsive lately and he is not currently handling emotions. He did claim that his worst suicide attempts. He claims has been having financial difficulties and also problems with his living situation as his girlfriend recently kicked him out on Sunday before coming in the hospital. He states that he has been feeling depressed and fairly anxious and having racing thoughts. His sleep has been on and off. Appetite has been fair has been fair. He claims that he has been sober from drugs except for marijuana for the past 10 months. He states that he uses about 2 g a day of marijuana. Denies any cigarette use. Patient denies any suicidal or homicidal ideations intent or plan. At this time patient denies any auditory or visual hallucinations. " Hospital course: Upon admission to the unit patient was directable and agreeable to commence treatment and signed adult voluntary form. Patient got along well with other patients on the unit and followed unit protocol. Patient was compliant with the medications and denied any side effects throughout hospital course. Patient was started on Seroquel and increased her dose of 100 mg daily at bedtime for mood stabilization/insomnia, Cymbalta 90 mg daily for mood/anxiety, Vistaril when necessary for anxiety. Patient spoke of his stressors and engaged in therapy both group and individual. Patient was also seen by medical team for history and physical exam. Throughout the course of the hospitalization patient gradually improved with regards to mood, anxiety, sleep and returned back to their baseline level of functioning. On the day of discharge patient denied any suicidal or homicidal ideations intent or plan denied any auditory or visual hallucinations. Patient endorsed wanting to live for his future and sobriety. The patient denied any access to guns or weapons. Patient denied any paranoia and did not endorse any delusions. Patient does have a significant history of substance abuse and was counseled on abstaining from all substances including alcohol and marijuana. Patient attempted to call access line for rehab intake however he opted to stay at his girlfriends place until he gets into rehab. Sanju rankin was also counseled on the medications and need for regular compliance and was encouraged to follow-up with their outpatient appointment for mental health and also for primary care. Prior to discharge a family meeting will be arranged by secondary social studies teacher to answer any questions and ensure safety upon discharge. Mental status exam: General Appearance: Patient appears to have several tattoos, stated age is alert, pleasant, and cooperative. Patient is in no acute distress and has improved hygiene and grooming Behavior: Patient is calmly seated without any agitated behavior. Speech: Patient's speech is fluent and nonpressured. Mood/Affect: Patient reports their mood is "good", affect is congruent and constricted. Suicidality/Homicidality: Patient denies having any suicidal or homicidal ideation intent or plan. Perceptions: Patient denies any auditory or visual hallucinations. Though content/process: There is no evidence of any delusional thought content and thought process is linear and goal-directed Memory and concentration: AOX3, grossly intact for the purposes of this session. Can spell "WORLD" backwards correctly. Judgment and insight: improved with guarded prognosis Impression: depressive disorder unspecified generalized anxiety disorder cannabis use disorder Plan: -Continue with discharge today as patient has improved and stabilized psychiatrically and is not currently an imminent threat to himself and/or others. Patient will remain at chronically elevated risk for harm to self and/or others due to his impulsivity and substance abuse. -Continue medications: seroquel 100 mg daily at bedtime for mood stabilization/insomnia, Cymbalta 90 mg daily for mood/anxiety, Vistaril 50 mg daily when necessary for anxiety. -Patient was counseled on the need for medication compliance and appropriate follow-up at mental health and also primary care for medical issues. Patient verbalized understanding and agreed. -Social work to arrange for and conduct family meeting to ensure safety upon discharge and answer any questions/concerns. Social work also to arrange for patients follow up appointments with [facility] for psychiatric care along with follow up with primary care provider. -Patient counseled on abstaining from recreational drugs and marijuana and alcohol. Was informed/educated on the adverse effects on their physical and mental health. Patient verbally agreed and understood. -Patient was instructed to return to the hospital or seek immediate medical care if their psychiatric or medical symptoms do worsen or reoccur. Allergies Allergy/AdvReac Type Severity Reaction Status Date / Time amoxicillin [Amoxicillin] Allergy Rash/Hives Verified 08/07/22 04:00 codeine Allergy Rash/Hives Verified 08/07/22 04:00 Laboratory Results WBC 6.1 k/uL (3.8-10.6) 08/07/22 10:23 RBC 5.08 m/uL (4.30-5.90) 08/07/22 10:23 Hgb 15.1 gm/dL (13.0-17.5) 08/07/22 10:23 Hct 44.3 % (39.0-53.0) 08/07/22 10:23 MCV 87.1 fL (80.0-100.0) 08/07/22 10:23 MCH 29.7 pg (25.0-35.0) 08/07/22 10:23 MCHC 34.1 g/dL (31.0-37.0) 08/07/22 10:23 RDW 12.9 % (11.5-15.5) 08/07/22 10:23 Plt Count 187 k/uL (150-450) 08/07/22 10:23 MPV 7.9 08/07/22 10:23 Neutrophils % 62 % 08/07/22 10:23 Lymphocytes % 23 % 08/07/22 10:23 Monocytes % 7 % 08/07/22 10:23 Eosinophils % 4 % 08/07/22 10:23 Basophils % 1 % 08/07/22 10:23 Neutrophils # 3.8 k/uL (1.3-7.7) 08/07/22 10:23 Lymphocytes # 1.4 k/uL (1.0-4.8) 08/07/22 10:23 Monocytes # 0.5 k/uL (0-1.0) 08/07/22 10:23 Eosinophils # 0.3 k/uL (0-0.7) 08/07/22 10: Basophils # 0.0 k/uL (0-0.2) 08/07/22 10:23 Sodium 141 mmol/L (137-145) 08/07/22 10:23 Potassium 4.6 mmol/L (3.5-5.1) 08/07/22 10:23 Chloride 109 mmol/L (98-107) H 08/07/22 10:23 Carbon Dioxide 24 mmol/L (22-30) 08/07/22 10:23 Anion Gap 8 mmol/L 08/07/22 10:23 BUN 14 mg/dL (9-20) 08/07/22 10:23 Creatinine 1.04 mg/dL (0.66-1.25) 08/07/22 10:23 Est GFR (CKD-EPI)AfAm >90 (>60 ml/min/1.73 sqM) 08/07/22 10:23 Est GFR (CKD-EPI)NonAf >90 (>60 ml/min/1.73 sqM) 08/07/22 10:23 Glucose 72 mg/dL (74-99) L 08/07/22 10:[address] Glu mg/dL 101 08/07/22 10:23 Hemoglobin A1c 5.2 % (0.0-6.0) 08/07/22 10:23 Calcium 9.6 mg/dL (8.4-10.2) 08/07/22 10:23 Total Bilirubin 0.6 mg/dL (0.2-1.3) 08/07/22 10:23 Conjugated Bilirubin 0.0 mg/dL (0.0-0.3) 08/07/22 10:23 Unconjugated Bilirubin 0.2 mg/dL (0.0-1.1) 08/07/22 10:23 Delta Bilirubin 0.4 mg/dL (0.0-0.2) H 08/07/22 10:23 AST 32 U/L (17-59) 08/07/22 10:23 ALT 47 U/L (4-49) 08/07/22 10:23 Alkaline Phosphatase 64 U/L (38-126) 08/07/22 10:23 Total Protein 7.5 g/dL (6.3-8.2) 08/07/22 10:23 Albumin 4.5 g/dL (3.5-5.0) 08/07/22 10:23 Triglycerides 163.00 mg/dL (0.00-149.00) H 08/07/22 10:23 Cholesterol 184.00 mg/dL (0.00-200.00) 08/07/22 10:23 LDL Cholesterol, Calc 118.3 mg/dL (0.0-131.0) 08/07/22 10:23 VLDL Cholesterol, Calc 32.60 mg/dL (5.00-40.00) 08/07/22 10:23 HDL Cholesterol 33.10 mg/dL (40.00-60.00) L 08/07/22 10:23 Cholesterol/HDL Ratio 5.56 Ratio 08/07/22 10:23 TSH 2.230 mIU/L (0.465-4.680) 08/07/22 10:23 Urine Color Yellow 08/06/22 23:52 Urine Appearance Cloudy (Clear) 08/06/22 23:52 Urine pH 5.5 (5.0-8.0) 08/06/22 23:52 Ur Specific [place] 1.024 (1.001-1.035) 08/06/22 23:52 Urine Protein Trace (Negative) H 08/06/22 23:52 Urine Glucose (UA) Negative (Negative) 08/06/22 23:52 Urine Ketones Negative (Negative) 08/06/22 23:52 Urine Blood Negative (Negative) 08/06/22 23:52 Urine Nitrite Negative (Negative) 08/06/22 23:52 Urine Bilirubin Negative (Negative) 08/06/22 23:52 Urine Urobilinogen <2.0 mg/dL (<2.0) 08/06/22 23:52 Ur Leukocyte Esterase Large (Negative) H 08/06/22 23:52 Urine RBC 9 /hpf (0-5) H 08/06/22 23:52 Urine WBC >182 /hpf (0-5) H 08/06/22 23:52 Ur Squamous Epith Cells 1 /hpf (0-4) 08/06/22 23:52 Urine Bacteria Rare /hpf (None) H 08/06/22 23:52 Hyaline Casts 15 /lpf (0-2) H 08/06/22 23:52 Granular Casts 6 /lpf (0) 08/06/22 23:52 Urine Mucus Rare /hpf (None) H 08/06/22 23:52 Urine Opiates Screen Not Detected (NotDetected) 08/06/22 23:52 Ur Oxycodone Screen Not Detected (NotDetected) 08/06/22 23:52 Urine Methadone Screen Not Detected (NotDetected) 08/06/22 23:52 Ur Propoxyphene Screen Not Detected (NotDetected) 08/06/22 23:52 Ur Barbiturates Screen Not Detected (NotDetected) 08/06/22 23:52 U Tricyclic Antidepress Not Detected (NotDetected) 08/06/22 23:52 Ur Phencyclidine Scrn Not Detected (NotDetected) 08/06/22 23:52 Ur Amphetamines Screen Not Detected (NotDetected) 08/06/22 23:52 U Methamphetamines Scrn Not Detected (NotDetected) 08/06/22 23:52 U Benzodiazepines Scrn Not Detected (NotDetected) 08/06/22 23:52 Urine Cocaine Screen Not Detected (NotDetected) 08/06/22 23:52 U Marijuana (THC) Screen Detected (NotDetected) H 08/06/22 23:52 Treponema pallidum Ab Nonreactive (Nonreactive) 08/07/22 10:23 Chlamydia Source Urine 08/06/22 23:52 Chlamydia DNA (PCR) Negative (Neg,Equiv) 08/06/22 23:52 Coronavirus (PCR) Not Detected (Not Detectd) 08/07/22 01:35 HIV-1 Antibody Non-Reactive (Non-Reactive) 08/07/22 10:23 HIV Ag/Ab Interpret 08/07/22 10:23 HIV p24 Antibody Non-Reactive (Non-Reactive) 08/07/22 10:23 HIV-2 Antibody Non-Reactive (Non-Reactive) 08/07/22 10:23 HIV P24 Antigen Non-Reactive (Non-Reactive) 08/07/22 10:23 N. gonorrhoeae Source Urine 08/06/22 23:52 N.gonorrhoeae DNA Probe Negative (Neg,Equiv) 08/06/22 23:52 Vital Signs Temp 97.7 F 08/11/22 06:57 Pulse 62 08/11/22 06:57 Resp 14 08/11/22 06:57 BP 118/67 08/11/22 06:57 Pulse Ox 96 08/08/22 06:00 FiO2 Patient Condition at Discharge: Stable Plan - Discharge Summary Discharge Rx Participant: Yes New Discharge Prescriptions: New DULoxetine HCL [Cymbalta] 90 mg PO DAILY 30 Days #30 cap Nicotine 14Mg/24Hr Patch [Habitrol] 1 patch TRANSDERM DAILY 14 Days #14 patch QUEtiapine [SEROquel] 100 mg PO HS 30 Days #30 tab hydrOXYzine pamoate [Vistaril] 50 mg PO DAILY PRN 30 Days #30 cap PRN Reason: Anxiety Discontinued traZODone HCL [Desyrel] 100 mg PO HS #30 tab FLUoxetine HCL [PROzac] 30 mg PO DAILY #30 cap Discharge Medication List DULoxetine HCL [Cymbalta] 90 mg PO DAILY 30 Days #30 cap 08/11/22 [Rx] Nicotine 14Mg/24Hr Patch [Habitrol] 1 patch TRANSDERM DAILY 14 Days #14 patch 08/11/22 [Rx] QUEtiapine [SEROquel] 100 mg PO HS 30 Days #30 tab 08/11/22 [Rx] hydrOXYzine pamoate [Vistaril] 50 mg PO DAILY PRN 30 Days #30 cap 08/11/22 [Rx] Follow up Appointment(s)/Referral(s): [facility] ,Phil Dowell [NON-STAFF] - 1 Week Activity/Diet/Wound Care/Special Instructions: Avoid the use of street drugs and alcohol. Take all prescriptions as prescribed. When you are in need of refills on your medications, please contact your medical provider and/or outpatient psychiatrist to have this done. Please go to scheduled outpatient appointment for aftercare treatment. If symptoms return or become worse, call the crisis line at and/or go to the nearest emergency room for evaluation Discharge Disposition: HOME SELF-CARE
== END 2022-08-11 12:49 | disposition home or self-care (01) | DRG 881 ==
LOC: EC 23:26 → 3MHU 08-07 02:53
PROVIDERS: ADMIT Psychiatry & Neurology Psychiatry; ATTEND Psychiatry & Neurology Psychiatry
DX: F32.A Depression, unspecified (principal); R45.851 Suicidal ideations; F41.1 Generalized anxiety disorder; E66.9 Obesity, unspecified; Z68.34 Body mass index [BMI] 34.0-34.9, adult; F17.290 Nicotine dependence, other tobacco product, uncomplicated; G47.00 Insomnia, unspecified; J45.909 Unspecified asthma, uncomplicated; F15.10 Other stimulant abuse, uncomplicated; R36.9 Urethral discharge, unspecified; Z79.899 Other long term (current) drug therapy; Z91.51 Personal history of suicidal behavior; Z88.1 Allergy status to other antibiotic agents; Z88.5 Allergy status to narcotic agent; Z56.0 Unemployment, unspecified; Z87.81 Personal history of (healed) traumatic fracture; Z20.822 Contact with and (suspected) exposure to COVID-19
CPT/HCPCS: 80053; 80061; 80306; 81001; 82075; 82248; 83036; 84443; 85025; 86780; 87390; 87491; 87591; 87635; 99285